=== PATIENT | male | born 1955 | race Caucasian/White ===

== ENCOUNTER 2016-06-20 20:12 | Inpatient (IN) | payer MEDICARE ==
[2016-06-20] MEDS ORDERED: NITROGLYCERIN OINT 1 INCH/GM PACKET TOPICAL STA (20:52)
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
[2016-06-20 21:09] LABS: Basophils % (A) 0 %; CHCM 36.2; Eosinophils # (A) 0.2 k/uL (0-0.7); Eosinophils % (A) 3 %; HCT 38.6 % (39.0-53.0); HDW 2.91; HGB 13.5 gm/dL (13.0-17.5); Luc # (Auto) 0.19; Luc % (Auto) 3; Lymphocytes # (A) 1.8 k/uL (1.0-4.8); Lymphocytes % (A) 23 %; MCH 33.1 pg (25.0-35.0); MCV 94.6 fL (80.0-100.0); Mean Platelet Volume 6.3; Monocytes # (A) 0.5 k/uL (0-1.0); Monocytes % (A) 7 %; Neutrophils # (A) 5.1 k/uL (1.3-7.7); Neutrophils % (A) 65 %; RBC 4.08 m/uL (4.30-5.90); RDW 12.8 % (11.5-15.5); WBC 7.8 k/uL (3.8-10.6); WBC (Perox) 8.08
[2016-06-20 21:10] LABS: Partial Thromboplastin Time 23.2 sec (22.0-30.0); Prothrombin Time 10.5 sec (9.0-12.0)
[2016-06-20] MEDS: ASPIRIN 81 MG CHEW PO STA ×2 (21:11→21:12)
[2016-06-20 21:22] LABS: ALT 37 U/L (21-72); AST 21 U/L (17-59); Alkaline Phosphatase 85 U/L (38-126); Anion Gap 12 mmol/L; Blood Urea Nitrogen 13 mg/dL (9-20); Calcium 9.8 mg/dL (8.4-10.2); Carbon Dioxide 24 mmol/L (22-30); Chloride 106 mmol/L (98-107); Glucose 112 mg/dL (74-99); Magnesium 1.9 mg/dL (1.6-2.3); Non-African American GFR(MDRD) >60 (>60 ml/min/1.73 sqM); Potassium 4.8 mmol/L (3.5-5.1); Sodium 142 mmol/L (137-145); Total Bilirubin 0.4 mg/dL (0.2-1.3); Total Protein 7.6 g/dL (6.3-8.2)
--- NOTE | 2016-06-20 21:25 | XR ---
EXAMINATION TYPE: XR chest 2V DATE OF EXAM: 06/20/2016 9:09 PM COMPARISON: 03/01/2015 HISTORY: Chest pain TECHNIQUE: Frontal and lateral views of the chest are obtained. FINDINGS: There is no heart failure nor confluent pneumonic infiltrate. Heart size is normal. There are sternal wires. There is spurring in the thoracic spine. There are chest leads. Costophrenic angle s are clear. IMPRESSION: No active cardiopulmonary disease. No change.
[2016-06-20 21:26] LABS: Creatine Kinase 135 U/L (55-170)
[2016-06-20 21:39] LABS: Troponin I <0.012 ng/mL (0.000-0.034)
[2016-06-20 21:46] LABS: Creatine Kinase MB 4.9 ng/mL (0.0-2.4)
[2016-06-20] MEDS ORDERED: NITROGLYCERIN SL TABS 0.4 MG TAB SUBLINGUAL PRN (22:21)
[2016-06-20] MEDS ORDERED: MORPHINE SULFATE 2 MG/ML SYRINGE IVP PRN (22:21)
[2016-06-20] MEDS ORDERED: HEPARIN SODIUM,PORCINE 5,000 UNIT/ML 1 ML VIAL IV PRN (22:21)
[2016-06-20] MEDS ORDERED: HEPARIN SODIUM,PORCINE 5,000 UNIT/ML 1 ML VIAL IV ONE (22:21)
[2016-06-20] MEDS: HEPARIN SODIUM,PORCINE/D5W PMX 25,000 UNIT in DEXTROSE/WATER 1 500ML.BAG IV SCH (22:49)
[2016-06-20] MEDS ORDERED: ALBUTEROL NEBULIZED 2.5 MG/3 ML INHALATION PRN (22:56)
[2016-06-20] MEDS ORDERED: ALPRAZolam 0.25 MG TAB PO PRN (22:56)
[2016-06-20 23:22] VITALS: BMI 27.8
[2016-06-21 04:56] LABS: Cholesterol 138 mg/dL (<200); HDL Cholesterol 39 mg/dL (40-60); Triglycerides 398 mg/dL (<150)
[2016-06-21 05:11] LABS: Creatine Kinase 113 U/L (55-170)
[2016-06-21 05:24] LABS: Troponin I <0.012 ng/mL (0.000-0.034)
[2016-06-21 05:28] LABS: Creatine Kinase MB 4.3 ng/mL (0.0-2.4)
[2016-06-21] MEDS ORDERED: NITROGLYCERIN OINT 1 INCH/GM PACKET TOPICAL SCH (06:00)
[2016-06-21 06:52] LABS: Glucose,Whole Blood 117 mg/dL (75-99)
[2016-06-21] MEDS ORDERED: ASPIRIN 325 MG TAB PO STA ×2 (07:42→11:28)
[2016-06-21] MEDS ORDERED: SODIUM CHLORIDE 0.9% 1,000 ML in EMPTY BAG 1 BAG IV ONE ×2 (07:42→11:28)
[2016-06-21] MEDS ORDERED: ALPRAZolam 0.25 MG TAB PO PRN ×2 (07:42→11:28)
[2016-06-21] MEDS ORDERED: ATORVASTATIN 80 MG TAB PO STA ×2 (07:42→11:28)
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
[2016-06-21] MEDS ORDERED: FISH OIL PO SCH (09:00)
[2016-06-21] MEDS ORDERED: NON-FORMULARY DRUG (Ubidecarenone [Co Q-10] 100 MG) PO SCH (09:00)
[2016-06-21] MEDS ORDERED: DHA PO SCH (09:00)
[2016-06-21] MEDS ORDERED: EPA PO SCH (09:00)
[2016-06-21] MEDS: GEMFIBROZIL 600 MG TAB PO SCH ×3 (09:07→17:23)
[2016-06-21] MEDS: METOPROLOL TARTRATE 25 MG TAB PO SCH ×2 (09:16→21:35)
[2016-06-21] MEDS: PANTOPRAZOLE 40 MG TABLET PO SCH (09:16)
[2016-06-21] MEDS: LISINOPRIL 10 MG TAB PO SCH (09:16)
[2016-06-21 09:36] LABS: Creatine Kinase 124 U/L (55-170)
[2016-06-21 09:50] LABS: Troponin I <0.012 ng/mL (0.000-0.034)
[2016-06-21 09:56] LABS: Creatine Kinase MB 4.2 ng/mL (0.0-2.4)
[2016-06-21 11:09] LABS: Hemoglobin A1C 6.5 % (4.2-6.1)
[2016-06-21] MEDS ORDERED: ALPRAZolam 0.5 MG TAB PO PRN (11:28)
[2016-06-21] MEDS ORDERED: NITROGLYCERIN SL TABS 0.4 MG TAB SUBLINGUAL PRN (11:28)
--- NOTE | 2016-06-21 11:52 | ECHOF ---
Referral Reason:cp MEASUREMENTS -------- HEIGHT: 182.9 cm WEIGHT: 95.3 kg BP: 137/81 IVSd: 1.1 cm (0.6 - 1.1) LVIDd: 4.2 cm (3.9 - 5.3) LVPWd: 1.5 cm (0.6 - 1.1) IVSs: 1.3 cm LVIDs: 3.1 cm LVPWs: 1.7 cm Ao Diam: 4.2 cm (2.0 - 3.7) AV Cusp: 1.9 cm (1.5 - 2.6) LA Diam: 3.2 cm (2.7 - 3.8) MV EXCURSION: 23.948 mm (> 18.000) MV EF SLOPE: 162 mm/s (70 - 150) EPSS: 0.4 cm MV E Parminder: 0.69 m/s MV DecT: 206 ms MV A Parminder: 0.63 m/s MV E/A Ratio: 1.09 RAP: 5.00 mmHg RVSP: 8.72 mmHg FINDINGS -------- Sinus rhythm. This was a technically difficult study with suboptimal views. There is mild concentric left ventricular hypertrophy. Overall left ventricular systolic function is low-normal with, an EF between 50 - 55 %. Difficult to assess LV function accurately inspite of definity. The RV was not well visualized. The left atrium was not well visualized. The right atrium was not well visualized. 1.5mg of Definity was utilized for enhancement of images The aortic valve was not well visualized. Mild mitral regurgitation is present. Mild tricuspid regurgitation present. The right ventricular systolic pressure, as measured by Doppler, is 8.72mmHg. Pulmonic valve appears structurally normal. The pericardium is normal. CONCLUSIONS -------- 1. Sinus rhythm. 2. The aortic valve was not well visualized. 3. Mild mitral regurgitation is present. 4. Mild tricuspid regurgitation present. 5. The right ventricular systolic pressure, as measured by Doppler, is 8.72mmHg. 6. Pulmonic valve appears structurally normal. 7. The pericardium is normal. 8. This was a technically difficult study with suboptimal views. 9. There is mild concentric left ventricular hypertrophy. 10. Overall left ventricular systolic function is low-normal with, an EF between 50 - 55 %. 11. Difficult to assess LV function accurately inspite of definity. 12. The RV was not well visualized. 13. The left atrium was not well visualized. 14. The right atrium was not well visualized. 15. 1.5mg of Definity was utilized for enhancement of images [employer] MECH[employer]IC: Lilia Tolliver RDCS
[2016-06-21 12:19] LABS: Glucose,Whole Blood 89 mg/dL (75-99)
[2016-06-21] MEDS: ISOSORBIDE MONONITRATE ER 60 MG TAB.ER.24H PO SCH ×2 (12:22→21:35)
[2016-06-21] MEDS: CLOPIDOGREL 75 MG TAB PO SCH (12:22)
[2016-06-21] MEDS: MULTIVITAMINS, THERA 1 EACH TAB PO SCH (12:25)
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
[2016-06-21 17:20] LABS: Glucose,Whole Blood 113 mg/dL (75-99)
[2016-06-21] MEDS: INSULIN LISPRO (humaLOG) 300 UNIT/3 ML VIAL SQ SCH ×2 (17:24→21:33)
[2016-06-21] MEDS: ACETAMINOPHEN TAB 325 MG TAB PO PRN (20:42)
[2016-06-21 20:46] LABS: Glucose,Whole Blood 123 mg/dL (75-99)
[2016-06-21] MEDS: HEPARIN SODIUM,PORCINE/D5W PMX 25,000 UNIT in DEXTROSE/WATER 1 500ML.BAG IV SCH (22:12)
[2016-06-22] MEDS: ACETAMINOPHEN TAB 325 MG TAB PO PRN ×2 (03:45→19:58)
[2016-06-22 06:18] LABS: Basophils % (A) 0 %; CH 33.5; Eosinophils # (A) 0.2 k/uL (0-0.7); Eosinophils % (A) 3 %; HCT 36.3 % (39.0-53.0); HDW 2.99; HGB 12.6 gm/dL (13.0-17.5); Luc # (Auto) 0.19; Luc % (Auto) 3; Lymphocytes # (A) 2.4 k/uL (1.0-4.8); Lymphocytes % (A) 36 %; MCH 32.5 pg (25.0-35.0); MCHC 34.8 g/dL (31.0-37.0); MCV 93.6 fL (80.0-100.0); Monocytes # (A) 0.5 k/uL (0-1.0); Monocytes % (A) 7 %; Neutrophils # (A) 3.3 k/uL (1.3-7.7); Neutrophils % (A) 50 %; RBC 3.88 m/uL (4.30-5.90); RDW 12.8 % (11.5-15.5); WBC 6.6 k/uL (3.8-10.6); WBC (Perox) 6.67
[2016-06-22 06:26] LABS: Glucose,Whole Blood 111 mg/dL (75-99)
[2016-06-22] MEDS: GEMFIBROZIL 600 MG TAB PO SCH ×2 (06:48→17:07)
[2016-06-22] MEDS: PANTOPRAZOLE 40 MG TABLET PO SCH (06:48)
[2016-06-22] MEDS: INSULIN LISPRO (humaLOG) 300 UNIT/3 ML VIAL SQ SCH ×4 (06:52→21:31)
[2016-06-22] MEDS: METOPROLOL TARTRATE 25 MG TAB PO SCH ×2 (07:33→23:42)
[2016-06-22] MEDS: ISOSORBIDE MONONITRATE ER 60 MG TAB.ER.24H PO SCH ×2 (07:33→21:34)
[2016-06-22] MEDS: LISINOPRIL 10 MG TAB PO SCH (07:33)
[2016-06-22] MEDS: ASPIRIN 325 MG TAB PO SCH (07:33)
[2016-06-22] MEDS: CLOPIDOGREL 75 MG TAB PO SCH (07:34)
[2016-06-22 07:52] LABS: ALT 37 U/L (21-72); AST 18 U/L (17-59); Alkaline Phosphatase 77 U/L (38-126); Anion Gap 13 mmol/L; Blood Urea Nitrogen 15 mg/dL (9-20); Carbon Dioxide 22 mmol/L (22-30); Chloride 108 mmol/L (98-107); Glucose 115 mg/dL (74-99); Non-African American GFR(MDRD) >60 (>60 ml/min/1.73 sqM); Potassium 4.7 mmol/L (3.5-5.1); Sodium 143 mmol/L (137-145); Total Bilirubin 0.4 mg/dL (0.2-1.3); Total Protein 6.9 g/dL (6.3-8.2)
[2016-06-22] MEDS ORDERED: LIDOCAINE 2% INJ 20 MG/ML (20 ML MDV) ONE ×2 (08:07→09:44)
[2016-06-22] MEDS ORDERED: IV FLUID CONTINUATION 250 ML IV ONE (08:25)
[2016-06-22] MEDS ORDERED: diphenhydrAMINE 50 MG/ML 1 ML VIAL ONE (08:36)
[2016-06-22] MEDS ORDERED: MIDAZOLAM 2 MG/2 ML VIAL ONE (08:36)
[2016-06-22] MEDS ORDERED: diphenhydrAMINE 50 MG/ML 1 ML VIAL IVP ONE (08:41)
[2016-06-22] MEDS: MIDAZOLAM 2 MG/2 ML VIAL IV ONE ×2 (08:44→09:47)
[2016-06-22] MEDS ORDERED: fentaNYL (PF) 50 MCG/ML 2 ML AMP ONE (08:47)
[2016-06-22] MEDS ORDERED: fentaNYL (PF) 50 MCG/ML 2 ML AMP IV ONE (08:48)
[2016-06-22] MEDS ORDERED: LIDOCAINE 2% INJ 20 MG/ML SQ ONE (08:50)
--- NOTE | 2016-06-22 09:36 | P.PCN ---
Date of Procedure: 06/22/16 Preoperative Diagnosis: Unstable angina Postoperative Diagnosis: Significant progression of the disease in the graft to the OM Procedure(s) Performed: Left heart catheterization with selective injection of the WELSH grafts and the 2 vein grafts. No LV gram was performed. The mechoopda vessels were not studied Description of Procedure: HISTORY: This is a 60-year-old gentleman with history of ischemic heart disease and previous bypass surgeries 2. Patient is admitted to the hospital this time with complaints of chest pain and was evaluated in the hospital. Patient EKGs cardiac enzymes were negative. However because of typical chest pains and previous history, patient was advised to have cardiac catheterization. CONSENT:We have discussed the risks, benefits and alternative therapies for the above-mentioned procedure and for both sedation/analgesia as well as necessary blood product administration, if indicated, as they pertain to this patient. The patient has indicated understanding and acceptance of the risks and procedures discussed. PROCEDURE: Patient was brought to the lab in a fasting state. Patient was given some IV sedation. The right groin is infiltrated with lidocaine and right femoral artery was entered using Seldinger technique. A 6-Bahamian catheter was left in place and selective coronary arteriography was performed including selective injection of the WELSH graft and the 2 vein grafts.. Patient tolerated the procedure well. Patient was found to have a critical lesion involving the graft to the OM branch with very sluggish flow. Dr. Madrigal' s evaluating the patient and will talk to the family before deciding proceed with stent placement of the graft. This could be high risk procudere with possibility of total occlusion. HEMODYNAMICS: The aortic pressure is 120/73. Left ankle end-diastolic pressure is about 15-20. There was no gradient across the aortic valve. SELECTIVE CORONARY ARTERIOGRAPHY: LEFT MAIN: Not selectively studied at this time THE LEFT ANTERIOR DESCENDING CORONARY ARTERY: Totally occluded from the previous studies THE LEFT CIRCUMFLEX AND IS CORONARY ARTERY: Totally occluded from the previous studies THE RIGHT CORONARY ARTERY: Totally occluded from the previous studies THE VEIN GRAFT TO THE OM BRANCH: This graft is also very short admission for with a long tight stenosis proximally. We'll cannot see the flow into the mechoopda vessel because of very sluggish flow. THE VEIN GRAFT TO THE RCA: This is a good caliber vessel and patent at the proximal and distal anastomosis. The distal RCA is good in caliber and patent. THE WELSH GRAFT TO THE LAD: This is a fairly caliber vessel and patent throat its length and also to distal anastomosis. The distal LAD is a small to moderate in caliber with mild diffuse plaque. LEFT VENTRICULOGRAPHY: Not performed FINAL IMPRESSION: Critical lesion involving the vein graft to the OM branch. Rest of the circulation appears to be stable PLAN: Possible stenting of the graft to the OM branch. Dr. Madrigal's evaluating the patient and will talk to the family before deciding PROGNOSIS: Guarded
[2016-06-22] MEDS ORDERED: BIVALIRUDIN BOLUS 250 MG/50 ML IV ONE (09:45)
[2016-06-22] MEDS ORDERED: BIVALIRUDIN 250 MG in SODIUM CHLORIDE 0.9% 50 ML IV ONE (09:46)
[2016-06-22] MEDS: niCARdipine Syringe (1,000 mcg/10 mL) INTRACORON ONE ×3 (09:50→10:06)
[2016-06-22] MEDS ORDERED: SODIUM CHLORIDE 0.9% 1,000 ML IV ONE (10:03)
[2016-06-22] MEDS ORDERED: NITROGLYCERIN 1000MCG/10ML SYRINGE INTRAARTER ONE (10:06)
[2016-06-22] MEDS ORDERED: CLOPIDOGREL 75 MG TAB ONE (10:08)
[2016-06-22] MEDS ORDERED: CLOPIDOGREL 75 MG TAB PO ONE (10:10)
[2016-06-22] MEDS ORDERED: NITROGLYCERIN SL TABS 0.4 MG TAB SUBLINGUAL PRN (10:12)
[2016-06-22] MEDS ORDERED: RX INFO: IV CONTRAST WAS GIVEN 1 EACH MISC MISCELLANE PRN (10:12)
[2016-06-22] MEDS ORDERED: MAG HYDROX/AL HYDROX/SIMETH 30 ML CUP PO PRN (10:12)
[2016-06-22] MEDS ORDERED: ZOLPIDEM 5 MG TAB PO PRN (10:12)
[2016-06-22] MEDS ORDERED: SODIUM CHLORIDE 0.9% 1,000 ML IV SCH (10:15)
[2016-06-22] MEDS ORDERED: IOHEXOL 350 MG/ML 100 ML BOTTLE INJ ONE (10:21)
[2016-06-22] MEDS ORDERED: MAG HYDROX/AL HYDROX/SIMETH 30 ML CUP ONE (10:27)
[2016-06-22] MEDS ORDERED: MAG HYDROX/AL HYDROX/SIMETH 30 ML CUP PO ONE (10:28)
[2016-06-22 11:11] LABS: Glucose,Whole Blood 85 mg/dL (75-99)
[2016-06-22] MEDS: MULTIVITAMINS, THERA 1 EACH TAB PO SCH (11:38)
[2016-06-22] MEDS ORDERED: ATROPINE SULFATE 0.1 MG/ML 10ML SYRINGE ONE (13:01)
[2016-06-22] MEDS: HYDROmorphone 1 MG/ML 1 ML SYRINGE IVP PRN ×2 (14:11→17:08)
--- NOTE | 2016-06-22 15:50 | PN ---
DATE OF SERVICE: 06/12/2016 PRESENTING COMPLAINT: Chest pain. INTERVAL HISTORY: This is a patient with known coronary artery disease, presents with unstable angina. Patient underwent a cardiac cath today and the graft to the OM was blocked. Patient did get angioplasty and stenting to the same. Currently no chest pain, lying in bed. Review of systems done for constitutional, cardiovascular, GI, pulmonary; relevant findings as above. Current medications are reviewed. On examination, temperature 97, pulse 74, respirations 16, blood pressure 111/62, pulse ox 95% on room air. GENERAL APPEARANCE: Lying in bed, comfortable. EYES: Pupils equal. Conjunctivae are normal. NECK: JVD not raised. Mass not palpable. Respiratory effort normal. Lungs are clear. CARDIOVASCULAR: First and second sounds normal. No edema. ABDOMEN: Soft, nontender. Liver and spleen not palpable. PSYCHIATRY: Alert and oriented x3. Mood and affect is normal. INVESTIGATIONS: White count 6.6, potassium 4.7. ASSESSMENT: 1. Unstable angina in a patient with known coronary artery disease. 2. Successful angioplasty stenting of the graft to the OM. 3. Coronary artery disease with prior history of coronary artery bypass. 4. Chronic obstructive pulmonary disease in an ex-smoker. 5. Diabetes mellitus type 2 on oral hypoglycemic. 6. Gastroesophageal reflux disease. 7. Essential hypertension. PLAN: Patient is doing well. Stable. Continue current medication and treatment plan. Follow with cardiology. Care was discussed with the patient and the .
[2016-06-22 17:00] LABS: Glucose,Whole Blood 162 mg/dL (75-99)
[2016-06-22 20:28] LABS: Glucose,Whole Blood 111 mg/dL (75-99)
--- NOTE | 2016-06-22 21:56 | PCN ---
DATE OF PROCEDURE: June 22, 2016 PERFORMING PHYSICIAN: Wiley High, toll gate tender. PROCEDURE PERFORMED: Successful stenting of the SVG to obtuse marginal branch using 2.25 x 18 and 2.25 x 15 mm Xience ROBERT with a good angiographic results. INDICATION: This is a pleasant 60-year-old gentleman who sees Dr. Dickerson as an outpatient, who presented to the hospital with chest discomfort and unstable angina. He underwent a heart catheterization by Dr. Dickerson and was found to have critical disease involving the ostial of the SVG to OM. Approach: Right common femoral artery. COMPLICATIONS: None. Level of sedation: Moderate. PROCEDURE DESCRIPTION: After diagnostic heart catheterization was performed by Dr. Dickerson and after reviewing the angiogram, decision was made toward percutaneous coronary intervention. The case was discussed with the patient and the family in detail to. Anticoagulation was initiated using Angiomax. Subsequently, I took an Amplatzer one guiding catheter, and the SVG to OM was engaged. A whisper wire was used to wire that graft. Subsequently, I did balloon angioplasty using 2.0 x 12 mm balloon. Then I deployed in the mid body of the graft 2.25 x 18 mm Xience ROBERT and in the ostial proximal part of the graft 2.25 x 15 mm Xience ROBERT as well. Both stents were deployed under 12 atmospheres for 20 seconds. The following angiogram showed good angiographic result without perforation and without dissection. POSTPROCEDURE MANAGEMENT: 1. Dual antiplatelet therapy. 2. Risk factor modification. 3. Follow-up with the patient.
[2016-06-23 05:23] VITALS: TEMP 98
[2016-06-23 06:24] LABS: Glucose,Whole Blood 146 mg/dL (75-99)
[2016-06-23] MEDS: GEMFIBROZIL 600 MG TAB PO SCH (06:37)
[2016-06-23] MEDS: PANTOPRAZOLE 40 MG TABLET PO SCH (06:37)
[2016-06-23] MEDS: INSULIN LISPRO (humaLOG) 300 UNIT/3 ML VIAL SQ SCH (06:38)
[2016-06-23 06:47] LABS: Non-African American GFR(MDRD) >60 (>60 ml/min/1.73 sqM)
[2016-06-23] MEDS: ISOSORBIDE MONONITRATE ER 60 MG TAB.ER.24H PO SCH (08:03)
[2016-06-23] MEDS: METOPROLOL TARTRATE 25 MG TAB PO SCH (08:03)
[2016-06-23] MEDS: CLOPIDOGREL 75 MG TAB PO SCH (08:03)
[2016-06-23] MEDS: LISINOPRIL 10 MG TAB PO SCH (08:03)
[2016-06-23 09:30] VITALS: BP 137/68; PULSE 75; RESP 18
--- NOTE | 2016-06-23 09:39 | P.PN ---
Subjective Principal diagnosis: Stent placement of the SVG to the obtuse marginal This is a pleasant 60-year-old gentleman who follows regularly with Dr. Dickerson in the office. He has a known history of coronary artery disease with prior CABG and redo CABG, hypertension, hyperlipidemia, he presented to the hospital with symptoms of chest discomfort. Patient was taken to the cardiac catheterization lab by Dr. Dickerson and subsequently underwent angioplasty with stenting of the SVG to the OM by Dr. Madrigal. He was seen and examined this morning, denies any chest pain or difficulty in breathing. He has been up ambulating without any difficulty. EKG performed this morning shows normal sinus rhythm with no changes from post-PCI. Objective - Vital Signs Vital signs: Vital Signs Temp 98.0 F 06/23/16 04:00 Pulse 75 06/23/16 08:00 Resp 18 06/23/16 08:00 BP 137/68 06/23/16 08:00 Pulse Ox 98 06/23/16 08:00 Intake & Output 06/22/16 06/23/16 06/23/16 18:59 06:59 18:59 Intake Total 1286.37 180 Output Total 2000 450 Balance -713.63 -450 180 Weight 97.1 kg Intake: IV 286.37 Intake, IV Titration 400 Amount Sodium Chloride 0.9% 1, 400 000 ml @ 100 mls/hr IV . Q10H CECY Rx#:[id number] Oral 600 180 Output: Urine 2000 450 Uretheral (Lau) 1000 450 Other: # Voids 0 3 # Bowel Movements 0 - Exam PHYSICAL EXAMINATION: HEENT: Head is atraumatic, normocephalic. Pupils equal, round. Neck is supple. There is no elevated jugular venous pressure. HEART EXAMINATION: Heart S1, S2 normal. No murmur or gallop heard. CHEST EXAMINATION: Lungs are clear to auscultation and precussion. No chest wall tenderness is noted on palpation or with deep breathing. ABDOMEN: Soft, nontender. Bowel sounds are heard. No organomegaly noted. Right groin soft, no evidence of any hematoma, good distal pulse. EXTREMITIES: 2+ peripheral pulses with no evidence of peripheral edema and no calf tenderness noted. NEUROLOGIC patient is awake, alert and oriented -3. . - Labs CBC & Chem 7: 06/22/16 05:41 06/23/16 05:48 Labs: Abnormal Lab Results - Last 24 Hours (Table) 06/22/16 06/22/16 06/23/16 Range/Units 16:58 20:23 06:22 POC Glucose (mg/dL) 162 H 111 H 146 H (75-99) mg/dL Assessment and Plan (1) Hx of CABG Status: Acute (2) HTN (hypertension) Status: Acute (3) Hyperlipemia Status: Acute (4) Unstable angina pectoris Status: Acute Plan: Patient presented hospital with symptoms of chest discomfort, underwent angioplasty with stenting of the saphenous vein graft to the OM branch. From cardiology's perspective, he may be able to be discharged home today. A follow- up appointment will be made with Dr. Dickerson in the office in one week. Patient will be discharged home on aspirin 81 mg daily, Plavix 75 mg daily, Lopid 600 mg twice a day, Imdur 60 mg by mouth twice a day, lisinopril 10 mg daily, metoprolol tartrate 25 mg one tablet by mouth twice a day, and sublingual nitroglycerin as needed for chest pain. DNP note has been reviewed, I agree with a documented findings and plan of care. Patient was seen and examined.
[2016-06-23] MEDS: ASPIRIN 325 MG TAB PO SCH (10:13)
[2016-06-23 11:58] LABS: Glucose,Whole Blood 84 mg/dL (75-99)
--- NOTE | 2016-06-23 14:02 | PTCA ---
DATE OF PROCEDURE: June 22, 2016 PERFORMING PHYSICIAN: Wiley High, envelope sealer operator. PROCEDURE PERFORMED: Successful stenting of the SVG to obtuse marginal branch using 2.25 x 18 and 2.25 x 15 mm Xience ROBERT with a good angiographic results. INDICATION: This is a pleasant 60-year-old gentleman who sees Dr. Dickerson as an outpatient, who presented to the hospital with chest discomfort and unstable angina. He underwent a heart catheterization by Dr. Dickerson and was found to have critical disease involving the ostial of the SVG to OM. Approach: Right common femoral artery. COMPLICATIONS: None. Level of sedation: Moderate. PROCEDURE DESCRIPTION: After diagnostic heart catheterization was performed by Dr. Dickerson and after reviewing the angiogram, decision was made toward percutaneous coronary intervention. The case was discussed with the patient and the family in detail to. Anticoagulation was initiated using Angiomax. Subsequently, I took an Amplatzer one guiding catheter, and the SVG to OM was engaged. A whisper wire was used to wire that graft. Subsequently, I did balloon angioplasty using 2.0 x 12 mm balloon. Then I deployed in the mid body of the graft 2.25 x 18 mm Xience ROBERT and in the ostial proximal part of the graft 2.25 x 15 mm Xience ROBERT as well. Both stents were deployed under 12 atmospheres for 20 seconds. The following angiogram showed good angiographic result without perforation and without dissection. POSTPROCEDURE MANAGEMENT: 1. Dual antiplatelet therapy. 2. Risk factor modification. 3. Follow-up with the patient.
--- NOTE | 2016-06-23 14:38 | PTCA ---
DATE OF PROCEDURE: June 22, 2016 PERFORMING PHYSICIAN: Wiley High, geothermal system installer. PROCEDURE PERFORMED: Successful stenting of the SVG to obtuse marginal branch using 2.25 x 18 and 2.25 x 15 mm Xience ROBERT with a good angiographic results. INDICATION: This is a pleasant 60-year-old gentleman who sees Dr. Dickerson as an outpatient, who presented to the hospital with chest discomfort and unstable angina. He underwent a heart catheterization by Dr. Dickerson and was found to have critical disease involving the ostial of the SVG to OM. Approach: Right common femoral artery. COMPLICATIONS: None. Level of sedation: Moderate. PROCEDURE DESCRIPTION: After diagnostic heart catheterization was performed by Dr. Dickerson and after reviewing the angiogram, decision was made toward percutaneous coronary intervention. The case was discussed with the patient and the family in detail to. Anticoagulation was initiated using Angiomax. Subsequently, I took an Amplatzer one guiding catheter, and the SVG to OM was engaged. A whisper wire was used to wire that graft. Subsequently, I did balloon angioplasty using 2.0 x 12 mm balloon. Then I deployed in the mid body of the graft 2.25 x 18 mm Xience ROBERT and in the ostial proximal part of the graft 2.25 x 15 mm Xience ROBERT as well. Both stents were deployed under 12 atmospheres for 20 seconds. The following angiogram showed good angiographic result without perforation and without dissection. POSTPROCEDURE MANAGEMENT: 1. Dual antiplatelet therapy. 2. Risk factor modification. 3. Follow-up with the patient.
--- NOTE | 2016-06-24 09:02 | DS ---
DATE OF ADMISSION: 06/21/2016 DATE OF DISCHARGE: 06/23/2016 FINAL DIAGNOSIS(ES): 1. Unstable angina ( ) coronary artery disease. 2. Coronary artery disease with prior history of coronary artery bypass. 3. Chronic obstructive pulmonary disease in an ex-smoker. 4. Diabetes mellitus, Type 2 on oral hypoglycemics. 5. Gastroesophageal reflux disease. 6. Essential hypertension. PROCEDURE: Cardiac catheterization with stent to the graft of the OM. CONSULTATION: Dr. High from cardiology. HOSPITAL COURSE: This patient presented with unstable angina. Cardiac cath with intervention to the above was carried out. A 2-D echo showed a preserved EF of 50% to 55%. Day of discharge, the patient up and about no further chest pain. Care was discussed with the patient and at the bedside. On exam, lungs are clear. CARDIOVASCULAR: First and second sounds normal. DISCHARGE MEDICATIONS: 1. Fish oil 600 mg p.o. b.i.d. 2. Prilosec 20 mg with breakfast. 3. Nitrostat 0.4 sublingual q.5 p.r.n. 4. Xanax 0.25 p.o. b.i.d. p.r.n. 5. Pro-air 1 to 2 puffs q.6 p.r.n. 6. Aspirin 81 mg q.h.s. 7. Lopid 600 mg p.o. b.i.d. 8. Imdur ER 60 mg b.i.d. 9. Zestril 10 mg p.o. daily. 10. Lopressor 25 mg p.o. b.i.d. 11. Men's multivitamin 1 tablet p.o. daily. 12. CoQ10 100 mg daily. 13. Glucotrol XL 5 mg p.o. daily. 14. Plavix 75 mg daily. 15. Flonase 2 sprays each nostril daily p.r.n. 16. Multivitamin 1 tablet p.o. daily at noon. 17. Nitrostat 0.4 sublingual q.5 p.r.n. Follow up with Dr. Quinn in one week. Follow-up with Dr. Dickerson on 07/01/2016.
== END 2016-06-23 13:09 | disposition home or self-care (01) | DRG 247 ==
LOC: EC 20:12 → 3OBS 22:21 → OBSVTOIN 06-21 11:27 → 6SEL 06-21 12:42
PROVIDERS: ADMIT Hospitalist; ATTEND Hospitalist
PROC: B2121ZZ Fluoroscopy of Single Coronary Artery Bypass Graft using Low Osmolar Contrast (ICD-10-PCS; 2016-06-22)
PROC: B2111ZZ Fluoroscopy of Multiple Coronary Arteries using Low Osmolar Contrast (ICD-10-PCS; 2016-06-22)
PROC: 027035Z Dilation of Coronary Artery, One Artery with Two Drug-eluting Intraluminal Devices, Percutaneous Approach (ICD-10-PCS; principal; 2016-06-22 08:25)
PROC: 4A023N7 Measurement of Cardiac Sampling and Pressure, Left Heart, Percutaneous Approach (ICD-10-PCS; 2016-06-22 08:25)
DX: I25.110 Atherosclerotic heart disease of native coronary artery with unstable angina pectoris (principal); I10 Essential (primary) hypertension; E11.9 Type 2 diabetes mellitus without complications; E78.5 Hyperlipidemia, unspecified; I25.2 Old myocardial infarction; I45.10 Unspecified right bundle-branch block; J44.9 Chronic obstructive pulmonary disease, unspecified; K21.9 Gastro-esophageal reflux disease without esophagitis; F41.9 Anxiety disorder, unspecified; H26.9 Unspecified cataract; Z79.02 Long term (current) use of antithrombotics/antiplatelets; Z79.82 Long term (current) use of aspirin; Z79.899 Other long term (current) drug therapy; Z79.84 Long term (current) use of oral hypoglycemic drugs; Z87.891 Personal history of nicotine dependence; Z95.1 Presence of aortocoronary bypass graft; Z82.49 Family history of ischemic heart disease and other diseases of the circulatory system
CPT/HCPCS: 36415; 71020; 80053; 80061; 82550; 82553; 82565; 83036; 83735; 83880; 84484; 85025; 85610; 85730; 93005; 93306; 93459; 96365; 96366; 96376; 99285

== ENCOUNTER 2016-11-20 05:06 | Observation (INO) | payer MEDICARE ==
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
[2016-11-20] MEDS ORDERED: MORPHINE SULFATE 4 MG/ML SYRINGE IV STA (05:28)
[2016-11-20] MEDS ORDERED: ASPIRIN 81 MG CHEW PO STA (05:28)
[2016-11-20] MEDS: NITROGLYCERIN SL TABS 0.4 MG TAB SUBLINGUAL STA ×3 (05:35→05:54)
--- NOTE | 2016-11-20 05:59 | XR ---
EXAM: XR Chest, 1 View CLINICAL HISTORY: chest pain TECHNIQUE: Frontal view of the chest. COMPARISON: Chest x-ray dated 06/20/2016 FINDINGS: Lungs: Unremarkable. No consolidation. Pleural space: Unremarkable. No pneumothorax. Heart: Unremarkable. No cardiomegaly. Mediastinum: Unremarkable. Bones/joints: Evidence of prior median sternotomy. Degenerative changes of the osseous structures. IMPRESSION: No acute findings.
[2016-11-20 06:26] LABS: Partial Thromboplastin Time 23.4 sec (22.0-30.0); Prothrombin Time 10.6 sec (9.0-12.0)
[2016-11-20 06:27] LABS: ALT 64 U/L (21-72); AST 41 U/L (17-59); Alkaline Phosphatase 59 U/L (38-126); Anion Gap 15 mmol/L; Blood Urea Nitrogen 19 mg/dL (9-20); Calcium 10.1 mg/dL (8.4-10.2); Carbon Dioxide 22 mmol/L (22-30); Chloride 104 mmol/L (98-107); Glucose 123 mg/dL (74-99); Non-African American GFR(MDRD) >60 (>60 ml/min/1.73 sqM); Potassium 4.4 mmol/L (3.5-5.1); Sodium 141 mmol/L (137-145); Total Bilirubin 0.3 mg/dL (0.2-1.3); Total Protein 7.6 g/dL (6.3-8.2)
[2016-11-20 06:29] LABS: Basophils % (A) 0 %; CH 34.1; CHCM 36.4; Eosinophils # (A) 0.2 k/uL (0-0.7); Eosinophils % (A) 2 %; HCT 39.3 % (39.0-53.0); HDW 2.79; HGB 13.9 gm/dL (13.0-17.5); Luc # (Auto) 0.23; Luc % (Auto) 3; Lymphocytes % (A) 42 %; MCH 33.3 pg (25.0-35.0); MCHC 35.3 g/dL (31.0-37.0); MCV 94.3 fL (80.0-100.0); Mean Platelet Volume 6.7; Monocytes # (A) 0.4 k/uL (0-1.0); Monocytes % (A) 6 %; Neutrophils # (A) 3.3 k/uL (1.3-7.7); Neutrophils % (A) 46 %; RBC 4.17 m/uL (4.30-5.90); RDW 13.7 % (11.5-15.5); WBC 7.1 k/uL (3.8-10.6); WBC (Perox) 6.88
[2016-11-20 06:30] LABS: Creatine Kinase 322 U/L (55-170)
[2016-11-20 06:42] LABS: Troponin I <0.012 ng/mL (0.000-0.034)
[2016-11-20 06:55] LABS: Creatine Kinase MB 7.5 ng/mL (0.0-2.4)
[2016-11-20] MEDS ORDERED: NITROGLYCERIN SL TABS 0.4 MG TAB SUBLINGUAL PRN (07:12)
[2016-11-20] MEDS ORDERED: ALBUTEROL NEBULIZED 2.5 MG/3 ML INHALATION PRN (07:14)
[2016-11-20] MEDS ORDERED: NON-FORMULARY DRUG (Ubidecarenone [Co Q-10] 100 MG) PO SCH (09:00)
--- NOTE | 2016-11-20 10:33 | CONS ---
DATE OF CONSULTATION: Mr. Flynn is a 61-year-old male with known history of coronary artery disease, status post redo coronary artery bypass grafting, who has been followed by Dr. Dickerson on a regular basis who presented with symptoms of chest discomfort. He started yesterday afternoon complaining of chest discomfort predominantly on the left side of chest. The discomfort was not associated with any other symptoms and some of the discomfort was worse in certain position of his upper extremities. It persisted for over 10 hours, came into the emergency room and evaluated and subsequently admitted. At the time of my evaluation, he is pain free. Patient was admitted to the hospital in June 2016 with symptoms of exertional chest discomfort and underwent cardiac catheterization. At that time he was found to have chronically occluded [place] arteries with patent WELSH to the LAD, patent saphenous vein graft to the right coronary artery with significant stenosis in the saphenous vein graft to the obtuse marginal branch. He subsequently underwent percutaneous revascularization of that vessel done by Dr. High using the 2.25 x 18 and 2.25 x 15 mm Xience stent. He feels that the discomfort he had yesterday is different from his anginal pain. He is reasonably active physically. His breathing is stable. He denies any dizziness, palpitation. He denies any syncope. He has no PND, orthopnea. No peripheral edema. His coronary risk factors are positive for history of hypertension and hyperlipidemia. He is diabetic. His medications at home include Glucotrol, Prilosec, Lopressor 25 mg twice a day, Zestril 10 mg daily, isosorbide mononitrate 60 mg daily, Lopid 600 mg twice a day, Plavix 75 mg daily, aspirin once a day and albuterol. REVIEW OF SYSTEMS: RESPIRATORY SYSTEM: He has no history of documented asthma, emphysema, bronchitis. GI SYSTEM: No recent GI bleeding. No peptic ulcer disease. SYSTEM: No dysuria or hematuria. NERVOUS SYSTEM: No stroke or seizure. PHYSICAL EXAMINATION: He is a 61-year-old male, alert, oriented, in no apparent distress. Blood pressure 140/70 with heart rate in the 60s. HEAD: Normocephalic. EYES: Sclerae anicteric. NECK: Good upstroke. No bruit. No jugular venous distention. LUNGS: Clear to auscultation. HEART: Regular rate and rhythm. S1, S2, no S3, with systolic murmur, ejection type, heard at the base. No diastolic murmur. No rub. ABDOMEN: Soft, nontender, positive bowel sounds. No organomegaly. EXTREMITIES: No edema. Intact distal pulses. He had amputation of 2 digits in the left hand. EKG revealed sinus mechanism, rate of 71, right bundle branch block and left axis deviation. Chest x-ray shows no acute changes. Lab data revealed troponin less than 0.012. BUN and creatinine 19 and 0.9. Potassium 4.4. Hemoglobin of 13.9. IMPRESSION: 1. Chest discomfort of unclear etiology, probable musculoskeletal in etiology had different pattern than his routine anginal pain. 2. History of coronary artery disease, status post redo coronary artery bypass grafting and status post stenting of the saphenous vein graft to the obtuse marginal branch. 3. Hypertension. 4. Hyperlipidemia. 5. Diabetes mellitus. RECOMMENDATION: I will obtain a second sample of troponin and if it is negative, then will proceed with a myocardial perfusion imaging to assess his status and guide his treatment. Depending on results of testing, further recommendations will be made. Thank you for this consult. We will follow with you.
[2016-11-20 11:11] LABS: Troponin I 0.017 ng/mL (0.000-0.034)
[2016-11-20 11:17] LABS: Creatine Kinase MB 6.6 ng/mL (0.0-2.4)
[2016-11-20] MEDS ORDERED: HEPARIN SODIUM,PORCINE 5,000 UNIT/ML 1 ML VIAL IV PRN (11:24)
[2016-11-20] MEDS ORDERED: HEPARIN SODIUM,PORCINE/D5W PMX 25,000 UNIT in DEXTROSE/WATER 1 500ML.BAG IV SCH ×2 (11:30→12:00)
[2016-11-20] MEDS ORDERED: HEPARIN SODIUM,PORCINE 5,000 UNIT/ML 1 ML VIAL IV ONE (12:00)
[2016-11-20 12:20] LABS: Glucose,Whole Blood 120 mg/dL (75-99)
[2016-11-20] MEDS: SODIUM CHLORIDE 0.9% 1,000 ML IV SCH (12:27)
[2016-11-20] MEDS: CLOPIDOGREL 75 MG TAB PO SCH (12:29)
[2016-11-20] MEDS: PANTOPRAZOLE 40 MG TABLET PO SCH (12:29)
[2016-11-20] MEDS: ISOSORBIDE MONONITRATE ER 60 MG TAB.ER.24H PO SCH ×2 (12:29→19:46)
[2016-11-20] MEDS: METOPROLOL TARTRATE 25 MG TAB PO SCH ×2 (12:29→19:46)
[2016-11-20] MEDS: LISINOPRIL 10 MG TAB PO SCH (12:30)
[2016-11-20] MEDS: GEMFIBROZIL 600 MG TAB PO SCH ×2 (12:30→17:38)
[2016-11-20] MEDS: MULTIVITAMINS, THERA 1 EACH TAB PO SCH (12:34)
[2016-11-20 13:31] LABS: Hemoglobin A1C 6.8 % (4.2-6.1)
[2016-11-20 17:04] LABS: Glucose,Whole Blood 112 mg/dL (75-99)
[2016-11-20 18:20] LABS: Creatine Kinase 291 U/L (55-170)
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
[2016-11-20 18:34] LABS: Troponin I <0.012 ng/mL (0.000-0.034)
[2016-11-20 18:37] LABS: Creatine Kinase MB 6.1 ng/mL (0.0-2.4)
[2016-11-20 19:50] LABS: Glucose,Whole Blood 158 mg/dL (75-99)
[2016-11-20] MEDS ORDERED: CYCLOBENZAPRINE 5 MG TAB PO PRN (21:08)
[2016-11-21 06:32] LABS: Glucose,Whole Blood 154 mg/dL (75-99)
[2016-11-21] MEDS ORDERED: AMINOPHYLLINE 500 MG/20 ML VIAL IV PRN (06:52)
[2016-11-21] MEDS ORDERED: REGADENOSON 0.4 MG/5 ML SYRINGE IV ONE (06:52)
[2016-11-21 07:06] LABS: Basophils % (A) 1 %; CH 34.1; CHCM 35.8; Eosinophils # (A) 0.1 k/uL (0-0.7); Eosinophils % (A) 2 %; HCT 37.4 % (39.0-53.0); HDW 2.75; HGB 12.7 gm/dL (13.0-17.5); Luc # (Auto) 0.15; Luc % (Auto) 2; Lymphocytes # (A) 2.7 k/uL (1.0-4.8); Lymphocytes % (A) 45 %; MCH 32.5 pg (25.0-35.0); MCV 95.7 fL (80.0-100.0); Mean Platelet Volume 6.8; Monocytes # (A) 0.4 k/uL (0-1.0); Monocytes % (A) 7 %; Neutrophils # (A) 2.6 k/uL (1.3-7.7); Neutrophils % (A) 44 %; RBC 3.91 m/uL (4.30-5.90); RDW 13.6 % (11.5-15.5); WBC (Perox) 6.08
[2016-11-21 07:50] LABS: Cholesterol 165 mg/dL (<200); HDL Cholesterol 41 mg/dL (40-60); Triglycerides 277 mg/dL (<150)
--- NOTE | 2016-11-21 09:17 | PN ---
Mr. Flynn is a 61-year-old male with a known history of coronary artery disease and is status post coronary artery bypass grafting and percutaneous revascularization, history of diabetes, hypertension, who presented with symptoms of chest discomfort that has some atypical feature for ischemic heart disease. He is feeling quite well this morning. He is denying any chest pain. His breathing has been stable. He denies any dizziness or palpitation. His medications at this time include IV heparin, aspirin, Plavix 75 mg daily, Lopid 600 mg twice a day, glipizide 2.5 mg twice a day, isosorbide mononitrate 60 mg twice a day, Zestril 10 mg daily, metoprolol 25 mg twice a day and Protonix. PHYSICAL EXAMINATION: Blood pressure 109/70 with a heart rate in the 80s. LUNGS: Clear. HEART: Regular rate and rhythm. S1, S2, no S3, no rub. ABDOMEN: Soft, nontender. EXTREMITIES: No edema. Lab data revealed troponin less than 0.012, 0.017 and less than 0.012. IMPRESSION: 1. Chest discomfort, has atypical feature for ischemic heart disease in a patient with known history of coronary artery disease. 2. Hypertension. 3. Hyperlipidemia. RECOMMENDATIONS: I will stop the IV heparin and proceed with a myocardial perfusion imaging. If there is no evidence of inducible ischemia, then no further cardiac work-up will be needed.
[2016-11-21] MEDS: METOPROLOL TARTRATE 25 MG TAB PO SCH ×2 (10:36→19:50)
[2016-11-21] MEDS: GEMFIBROZIL 600 MG TAB PO SCH ×2 (10:36→17:42)
[2016-11-21] MEDS: LISINOPRIL 10 MG TAB PO SCH (10:37)
[2016-11-21] MEDS: ISOSORBIDE MONONITRATE ER 60 MG TAB.ER.24H PO SCH ×2 (10:37→19:50)
[2016-11-21] MEDS: ASPIRIN 325 MG TAB PO SCH ×2 (10:37→10:42)
[2016-11-21] MEDS: MULTIVITAMINS, THERA 1 EACH TAB PO SCH (10:37)
[2016-11-21] MEDS: PANTOPRAZOLE 40 MG TABLET PO SCH (10:37)
[2016-11-21] MEDS: CLOPIDOGREL 75 MG TAB PO SCH (10:37)
[2016-11-21] MEDS: SODIUM CHLORIDE 0.9% 1,000 ML IV SCH (10:43)
--- NOTE | 2016-11-21 10:56 | NM ---
EXAMINATION TYPE: NM stress lexiscan cardiolite DATE OF EXAM: 11/21/2016 COMPARISON: 03/02/2015 prior myocardial SPECT HISTORY: chest pain TECHNIQUE: After the intravenous administration of 10.61 mCi Tc 99m Sestamibi - Cardiolite resting S PECT images acquired 45 minutes post injection. The patient received 0.4mg Lexiscan, 27.0 mCi Tc 99m Sestamibi - Stress images obtained [address] injection FINDINGS: Review of stress and rest SPECT images demonstrates a similar appearance to last exam. Gated analysi s shows normal wall motion with an estimated left ventricular ejection fraction of 52 %. IMPRESSION: Findings compatible with pharmacologically induced left ventricular myocardial ischemia involving ant erolateral and inferolateral left ventricle towards the base of the heart.
[2016-11-21 11:46] LABS: Glucose,Whole Blood 152 mg/dL (75-99)
--- NOTE | 2016-11-21 12:07 | EST ---
DATE OF SERVICE: 11/21/2016 AGE: 61Y SEX: M HT: 6'1" WT: 229 lbs. Lexiscan Cardiolite Stress Test *Heart Rate Blood Pressure *Rest: 69 Rest: 127/80 * *Max. Achieved: 93 Maximum BP: 127/83 85% PMHR: 134 100% PMHR: 158 *METS: - INDICATIONS: Chest pain. MEDICATIONS: - Patient was given Lexiscan injection over a period of 15 seconds. Peak heart rate of 93 was achieved. Maximum blood pressure of 127/83 mmHg was noted. Resting EKG shows normal sinus rhythm with a QRS morphology suggestive of right bundle branch block pattern is noted. ST segment depression suggestive of ischemia is noted. The nuclear study will follow.
[2016-11-21] MEDS ORDERED: ALPRAZolam 0.25 MG TAB PO PRN (13:14)
[2016-11-21] MEDS ORDERED: ALPRAZolam 0.5 MG TAB PO PRN (13:14)
[2016-11-21] MEDS ORDERED: SODIUM CHLORIDE 0.9% 1,000 ML in EMPTY BAG 1 BAG IV ONE (13:14)
[2016-11-21] MEDS ORDERED: ASPIRIN 325 MG TAB PO STA (13:18)
[2016-11-21] MEDS ORDERED: ATORVASTATIN 80 MG TAB PO STA (13:18)
[2016-11-21 16:50] LABS: Glucose,Whole Blood 131 mg/dL (75-99)
[2016-11-21 20:17] LABS: Glucose,Whole Blood 168 mg/dL (75-99)
--- NOTE | 2016-11-21 21:03 | P.PN ---
Progress Note - Text DATE OF SERVICE: 11/21/2016 PRESENTING COMPLAINT: Chest pressure INTERVAL HISTORY: This 61-year-old gentleman with unstable angina, stress test today was positive. Will go for cardiac catheterization tomorrow. Patient lying in the bed, appears comfortable. at the bedside. Tolerating his diet ambulating in the hallway. Plan of care discussed with patient and . REVIEW OF SYSTEMS: Done for constitutional ,cardiovascular, GI, pulmonary with relevant findings as above. CURRENT MEDICATIONS Xanax, aspirin, Plavix, Lopid, Imdur, Zestril, Lopressor. PHYSICAL EXAM: VITAL SIGNS: Temperature 98.1, pulse 61 respiratory rate 16, blood pressure 123/68, oxygen saturation 100% on room air. GENERAL APPEARANCE: . Lying in bed, appears relaxed. EYES: Pupils equal. Conjunctiva normal. NECK: JVD not raised. Mass not palpable. RESPIRATORY: Respiratory effort normal. Lungs decreased to auscultation. CARDIOVASCULAR: First and second sounds normal. No edema. ABDOMEN: Soft. Liver and spleen not palpable. No tenderness. No mass palpable. PSYCHIATRY: Alert and oriented x3. Mood and affect normal. INVESTIGATIONS: Hemoglobin 12.7, Accu-Cheks noted ASSESSMENT: Unstable angina in a patient with known coronary artery disease had a stent to the graft in the OM in June of this year. Coronary artery disease, prior history of coronary artery disease. Obesity body mass index greater than 30 Chronic obstructive pulmonary disease in ex-smoker. Diabetes mellitus type 2, on oral hypoglycemics. Gastroesophageal reflux disease. Essential hypertension. IV heparin monitoring. PLAN: Patient had a positive stress today therefore will be taken to the [facility] lab technician in the morning. IV heparin continues. We'll continue to monitor closely DIRECTOR OF SPECIAL SERVICES statement: Patient was seen and examined by nurse practitioner Khadijah Srivastava in all elements of the case discussed with attending is Dr. Huitron
[2016-11-22] MEDS: NITROGLYCERIN SL TABS 0.4 MG TAB SUBLINGUAL PRN ×2 (00:35→00:40)
[2016-11-22] MEDS: METOPROLOL TARTRATE 25 MG TAB PO SCH (06:37)
[2016-11-22] MEDS: ISOSORBIDE MONONITRATE ER 60 MG TAB.ER.24H PO SCH (06:37)
[2016-11-22] MEDS: LISINOPRIL 10 MG TAB PO SCH (06:37)
[2016-11-22 06:43] LABS: Basophils % (A) 1 %; CH 34.1; CHCM 35.8; Eosinophils # (A) 0.2 k/uL (0-0.7); Eosinophils % (A) 3 %; HCT 37.7 % (39.0-53.0); HDW 2.74; Luc % (Auto) 3; Lymphocytes # (A) 2.4 k/uL (1.0-4.8); Lymphocytes % (A) 39 %; MCHC 34.4 g/dL (31.0-37.0); MCV 95.7 fL (80.0-100.0); Mean Platelet Volume 6.6; Monocytes # (A) 0.4 k/uL (0-1.0); Monocytes % (A) 7 %; Neutrophils # (A) 2.9 k/uL (1.3-7.7); Neutrophils % (A) 48 %; RBC 3.94 m/uL (4.30-5.90); RDW 13.4 % (11.5-15.5); WBC 6.2 k/uL (3.8-10.6); WBC (Perox) 6.04
[2016-11-22 07:00] LABS: Glucose,Whole Blood 143 mg/dL (75-99)
--- NOTE | 2016-11-22 07:03 | PN ---
DATE OF SERVICE: 11/21/2016 ATTENDING NOTE: This patient was seen and examined by me earlier today. I reviewed the note of my nurse practitioner, Ms. Srivastava. Discussed, reviewed with additional findings below. This patient was admitted with unstable angina, had a stress test that was positive and was going to for cardiac catheterization. at the bedside. No further chest pain. On examination, blood pressure 120/68, respiration 16. LUNGS: Decreased breath sounds. CARDIOVASCULAR: First and second sounds normal. No edema. INVESTIGATIONS: Stress test positive. Troponin negative. ASSESSMENT: 1. Unstable angina in a patient with known coronary artery disease, now with a positive stress test. 2. IV heparin monitoring. PLAN: Continue current medication and treatment plan. Await cardiac catheterization. Care discussed with the patient and at the bedside.
[2016-11-22] MEDS ORDERED: LIDOCAINE 2% INJ 20 MG/ML (20 ML MDV) ONE (07:38)
[2016-11-22] MEDS ORDERED: fentaNYL (PF) 50 MCG/ML 2 ML AMP ONE (07:48)
[2016-11-22] MEDS ORDERED: MIDAZOLAM 2 MG/2 ML VIAL ONE (07:48)
[2016-11-22] MEDS ORDERED: IV FLUID CONTINUATION 950 ML IV ONE (07:58)
[2016-11-22] MEDS ORDERED: fentaNYL (PF) 50 MCG/ML 2 ML AMP IV ONE (08:06)
[2016-11-22] MEDS ORDERED: MIDAZOLAM 2 MG/2 ML VIAL IV ONE (08:07)
[2016-11-22] MEDS ORDERED: LIDOCAINE 2% INJ 20 MG/ML SQ ONE (08:13)
[2016-11-22] MEDS ORDERED: IOHEXOL 350 MG/ML 125ML BOTTLE INTRATHECA ONE (08:29)
[2016-11-22] MEDS ORDERED: RX INFO: IV CONTRAST WAS GIVEN 1 EACH MISC MISCELLANE PRN (08:49)
[2016-11-22] MEDS ORDERED: HYDROcodone/APAP 5-325MG 1 EACH TAB PO PRN (08:49)
--- NOTE | 2016-11-22 08:59 | P.PCN ---
Date of Procedure: 11/22/16 Preoperative Diagnosis: Unstable angina Postoperative Diagnosis: Stable coronary artery disease Procedure(s) Performed: Left heart catheterization without left ventriculography and selective injection of the bypass grafts Implants: Indications for Procedure: Operative Findings: Description of Procedure: HISTORY: This is a 61-year-old gentleman with history of previous bypass surgery and stent placement, who was admitted to the hospital with complaints of chest pain suggestive of unstable angina. Patient had a nuclear stress test that showed reversible ischemia in the inferolateral segments. A she is advised to have a cardiac catheterization for definitive diagnosis. CONSENT:I have discussed the risks, benefits and alternative therapies for the above-mentioned procedure and for both sedation/analgesia as well as necessary blood product administration, if indicated, as they pertain to this patient. The patient has indicated understanding and acceptance of the risks and procedures discussed. CONSCIOUS SEDATION: A she was given conscious sedation with 1 mg of Versed and 50 g of fentanyl and the duration of the sedation is 25 minutes PROCEDURE: Patient was brought to the lab in a fasting state. Patient was given some IV sedation. The right groin is infiltrated with lidocaine and right femoral artery was entered using Seldinger technique. A 6-[place]uv[place] catheter was left in place and selective coronary arteriography was performed. Patient tolerated the procedure well. Femoral angiogram was performed and manual compression l was applied for hemostasis. No immediate complications were noted and [facility] a [facility] condition HEMODYNAMICS: The aortic pressure is 100/70. The left ankle end-diastolic pressure is about 15-20. SELECTIVE CORONARY ARTERIOGRAPHY: LEFT MAIN: Normal length and patent THE LEFT ANTERIOR DESCENDING CORONARY ARTERY: This is a moderate caliber vessel with diffuse disease in the proximal portion with a 60 -70% stenosis. There appears to be related to flow in the distal LAD from WELSH graft. There is a moderate sized diagonal branch arising from the LAD which seemed to be free of any significant occlusive disease. THE LEFT CIRCUMFLEX AND IS CORONARY ARTERY: This is totally occluded. THE RIGHT CORONARY ARTERY: This is totally occluded. THE WELSH GRAFT TO THE LAD: This is patent throat its length and also the distal anastomosis. There appears to be competitive flow into the LAD from the [place] vessel. The vein graft to the OM branch : This is patent at the proximal and distal anastomosis. The previously placed stents are open. However, there is a limited flow into the distal bed. THE VEIN GRAFT TO CIRCUMFLEX: This is totally occluded at the proximal anastomosis. The vein graft to the RCA: This is patent at the proximal and distal anastomosis and throat its length. The distal RCA seemed to be dominant with the PDA and PLV branches. There is mild to moderate disease in this vessel. No change compared to the previous studies. LEFT VENTRICULOGRAPHY: not performed FINAL IMPRESSION: stable coronary artery disease with patent WELSH to the LAD, patent vein graft to the RCA and patent vein graft to the intermediate or OM branch. Recently patient stents in the OM branch appear to be patent. The bypass graft to the distal circumflex is totally occluded as documented before. PLAN: Maximum medical therapy and risk factor modification PROGNOSIS: guarded
[2016-11-22] MEDS ORDERED: SODIUM CHLORIDE 0.9% 1,000 ML IV SCH (09:00)
[2016-11-22] MEDS: SODIUM CHLORIDE 0.9% 1,000 ML IV SCH (09:33)
[2016-11-22] MEDS: ASPIRIN 325 MG TAB PO SCH (09:34)
[2016-11-22] MEDS: GEMFIBROZIL 600 MG TAB PO SCH (09:39)
[2016-11-22] MEDS: MULTIVITAMINS, THERA 1 EACH TAB PO SCH (09:40)
[2016-11-22] MEDS: CLOPIDOGREL 75 MG TAB PO SCH (09:40)
[2016-11-22] MEDS: PANTOPRAZOLE 40 MG TABLET PO SCH (09:40)
[2016-11-22 11:52] LABS: Glucose,Whole Blood 139 mg/dL (75-99)
[2016-11-22 16:04] VITALS: BP 121/67; PULSE 61; RESP 18; TEMP 97.5
--- NOTE | 2016-11-24 20:49 | DS ---
DATE OF ADMISSION: 11/20/2016 DATE OF DISCHARGE: 11/22/2016 FINAL DIAGNOSES: 1. Chest pain; could be angina. 2. Coronary artery disease with prior history of coronary artery disease. 3. Obesity; body mass index greater than 30. 4. Chronic obstructive pulmonary disease in an ex-smoker. 5. Diabetes mellitus, type 2, on oral hypoglycemic. 6. Gastroesophageal reflux disease. 7. Essential hypertension. 8. Intravenous heparin monitoring. HOSPITAL COURSE: This is a patient of Dr. Quinn who had a stent to the graft to OM by Dr. High. Patient presented with chest pressure; had a positive nuclear stress test. Cardiac catheterization showed no change from before. Patient's symptoms are resolved. On exam, lungs are clear. CARDIOVASCULAR: First and second sounds normal. CONSULTATIONS: Dr. Dickerson and Dr. Gentile from Cardiology. DISCHARGE MEDICATIONS: 1. Fish oil 1200 mg p.o. b.i.d. 2. Prilosec 20 mg with breakfast. 3. ProAir 1 to 2 puffs q.6 p.r.n. 4. Aspirin 81 mg at bedtime. 5. Lopid 600 mg b.i.d. 6. Imdur ER 60 mg b.i.d. 7. Zestril 10 mg p.o. daily. 8. Lopressor 25 p.o. b.i.d. 9. Men's Multivitamin 1 tablet p.o. daily. 10. CoQ10 100 mg p.o. daily. 11. Glucotrol XL 5 mg p.o. daily. 12. Plavix 75 mg p.o. daily. 13. Tylenol 650 mg p.o. q.4 p.r.n. 14. [place]-3 and flaxseed oil 1000 mg b.i.d. Follow up with Dr. Quinn in one week. Follow up with Dr. Dickerson in one week.
== END 2016-11-22 16:18 | disposition home or self-care (01) ==
LOC: EC 05:06 → 3OBS 07:12
PROVIDERS: ADMIT Hospitalist; ATTEND Hospitalist
DX: I25.110 Atherosclerotic heart disease of native coronary artery with unstable angina pectoris (principal); I45.2 Bifascicular block; K21.9 Gastro-esophageal reflux disease without esophagitis; J44.9 Chronic obstructive pulmonary disease, unspecified; I25.2 Old myocardial infarction; I10 Essential (primary) hypertension; E11.9 Type 2 diabetes mellitus without complications; H26.9 Unspecified cataract; Z79.899 Other long term (current) drug therapy; E78.5 Hyperlipidemia, unspecified; E66.9 Obesity, unspecified; Z79.82 Long term (current) use of aspirin; Z79.02 Long term (current) use of antithrombotics/antiplatelets; Z79.84 Long term (current) use of oral hypoglycemic drugs; Z88.2 Allergy status to sulfonamides; Z88.8 Allergy status to other drugs, medicaments and biological substances; Z95.1 Presence of aortocoronary bypass graft; Z87.891 Personal history of nicotine dependence; Z89.022 Acquired absence of left finger(s); Z68.30 Body mass index [BMI] 30.0-30.9, adult
CPT/HCPCS: 96361; 96365; 96366 ×2; 96375 ×2; 96376; 99285; 36415; 93005; 93017; 93459; 85379; 80061; 80053; 83036; 82550; 82553; 83735; 84484; 85025 ×3; 85610; 85730 ×2; 71010; 78452; G0378 ×3; C1894; C1769; A9500; J2001; J2250; J2270; J1644 ×2; J3010; J2785; Q9967

== ENCOUNTER 2017-02-12 19:08 | Observation (INO) | payer MEDICARE ==
[2017-02-12] MEDS ORDERED: ASPIRIN 81 MG PO STA (19:18)
[2017-02-12 19:50] LABS: Basophils % (A) 0 %; CH 33.9; CHCM 36.8; Eosinophils # (A) 0.1 k/uL (0-0.7); Eosinophils % (A) 2 %; HCT 36.9 % (39.0-53.0); HDW 2.99; HGB 13.7 gm/dL (13.0-17.5); Luc % (Auto) 3; Lymphocytes # (A) 1.6 k/uL (1.0-4.8); Lymphocytes % (A) 27 %; MCH 34.4 pg (25.0-35.0); MCHC 37.1 g/dL (31.0-37.0); MCV 92.7 fL (80.0-100.0); Mean Platelet Volume 6.7; Monocytes # (A) 0.4 k/uL (0-1.0); Monocytes % (A) 6 %; Neutrophils # (A) 3.8 k/uL (1.3-7.7); Neutrophils % (A) 62 %; RBC 3.98 m/uL (4.30-5.90); RDW 12.8 % (11.5-15.5); WBC 6.1 k/uL (3.8-10.6); WBC (Perox) 6.21
[2017-02-12 20:02] LABS: ALT 87 U/L (21-72); AST 56 U/L (17-59); Alkaline Phosphatase 60 U/L (38-126); Anion Gap 12 mmol/L; Blood Urea Nitrogen 15 mg/dL (9-20); Calcium 9.6 mg/dL (8.4-10.2); Carbon Dioxide 22 mmol/L (22-30); Chloride 105 mmol/L (98-107); Glucose 271 mg/dL (74-99); Magnesium 1.7 mg/dL (1.6-2.3); Non-African American GFR(MDRD) >60 (>60 ml/min/1.73 sqM); Potassium 4.2 mmol/L (3.5-5.1); Sodium 139 mmol/L (137-145); Total Bilirubin 0.3 mg/dL (0.2-1.3); Total Protein 7.4 g/dL (6.3-8.2)
--- NOTE | 2017-02-12 20:19 | XR ---
EXAMINATION TYPE: XR chest 2V DATE OF EXAM: 02/12/2017 COMPARISON: 11/20/2016 HISTORY: Shortness of breath TECHNIQUE: Frontal and lateral views of the chest are obtained. FINDINGS: Scattered senescent parenchymal changes noted. Hyperinflation compatible with COPD. No evidence for infiltrate. No evidence for atelectasis. Heart size is stable. Mediastinal structures are stable and grossly unremarkable. No evidence for hilar prominence. Degenerative changes dorsal spine. IMPRESSION: 1. No evidence for acute pulmonary disease.
[2017-02-12 20:26] LABS: Appearance,Urine Clear (Clear); Bilirubin,Urine Negative (Negative); Glucose,Urine (UA) 3+ (Negative); Ketones,Urine Negative (Negative); Leukocyte Esterase,Urine Negative (Negative); Mucus,Urine Rare /hpf; Nitrite,Urine Negative (Negative); PH, Urine 5.5 (5.0-8.0); Particle Count 1035; Protein,Urine 2+ (Negative); RBC,Urine <1 /hpf (0-5); Specific Gravity,Urine 1.015 (1.001-1.035); Squamous Epithelial Cell,Urine 1 /hpf (0-4); UA Billing (MACRO vs. MICRO) MICRO; Urobilinogen,Urine <2.0 mg/dL (<2.0); WBC,Urine 3 /hpf (0-5)
[2017-02-12 20:29] LABS: Partial Thromboplastin Time 22.6 sec (22.0-30.0); Prothrombin Time 10.4 sec (9.0-12.0)
[2017-02-12] MEDS ORDERED: MORPHINE SULFATE 4 MG/ML SYRINGE IV PRN (20:36)
[2017-02-12] MEDS ORDERED: ONDANSETRON 4 MG/2 ML VIAL IVP PRN (20:36)
[2017-02-12] MEDS ORDERED: NALOXONE 0.4 MG/ML 1 ML VIAL IV PRN (20:36)
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
[2017-02-12] MEDS ORDERED: METOPROLOL TARTRATE 25 MG TAB PO SCH (21:00)
[2017-02-12 22:27] VITALS: BMI 31.6
[2017-02-12] MEDS: FAMOTIDINE 20 MG TAB PO SCH (22:43)
[2017-02-12] MEDS: ISOSORBIDE MONONITRATE ER 60 MG TAB.ER.24H PO SCH (22:43)
[2017-02-12] MEDS: GEMFIBROZIL 600 MG TAB PO SCH (22:43)
[2017-02-13 04:04] VITALS: RESP 18
[2017-02-13] MEDS ORDERED: PANTOPRAZOLE 40 MG TABLET PO SCH (07:30)
[2017-02-13] MEDS: FAMOTIDINE 20 MG TAB PO SCH (08:10)
[2017-02-13] MEDS: GEMFIBROZIL 600 MG TAB PO SCH (08:10)
[2017-02-13] MEDS: ISOSORBIDE MONONITRATE ER 60 MG TAB.ER.24H PO SCH (08:11)
[2017-02-13] MEDS ORDERED: ASPIRIN 81 MG PO SCH (09:00)
[2017-02-13] MEDS ORDERED: METOPROLOL TARTRATE 25 MG TAB PO SCH (09:00)
[2017-02-13] MEDS ORDERED: CLOPIDOGREL 75 MG TAB PO SCH (09:00)
[2017-02-13] MEDS ORDERED: LISINOPRIL 10 MG TAB PO SCH (09:00)
[2017-02-13] MEDS ORDERED: ENOXAPARIN 40 MG/0.4 ML SYRINGE SQ SCH (09:00)
[2017-02-13 10:07] LABS: Hemoglobin A1C 7.5 % (4.2-6.1)
[2017-02-13 11:10] VITALS: BP 123/72
--- NOTE | 2017-02-13 11:18 | CONS ---
CONSULTATION A 61-year-old gentleman with a known history of CAD, previous bypass surgery, recent PCI of the vein graft to the obtuse marginal by Dr. High in June of this year that was patent in December. He sees Dr. Dickerson in the outpatient setting. He also has history of type 2 diabetes, hypertension and hyperlipidemia. He was working in the yard yesterday moving some heavy logs and then developed a sharp pain in the chest very atypical. It took his breath away. After that, he felt better. He backed off then later on had a tingling feeling in the left arm, took some nitro with some relief and then came into the hospital. No recurrence of pain. Pain itself seems atypical. As recently as 2-1/2 months ago his coronaries revealed no significant issues. There were 2 grafts to the circumflex system, one was a vein graft to the obtuse marginal that was stented in June was widely patent, but the distal area appears to be small. The vein graft to circumflex is occluded. Vein graft to RCA is patent. The WELSH to LAD is also patent throughout its length. There is some competitive flow. Based on the anatomy from November 22, there is no change. The distal circumflex bypass is occluded and it is not a new occlusion. The patient does have areas of ischemia probably and his moderate physical effort may have precipitated some angina although pain was atypical. Troponins are normal. He is resting comfortably without symptoms. PAST MEDICAL HISTORY: 1. CAD with previous bypass surgery and PCI. 2. Hypertension. 3. Hypercholesterolemia. 4. Type 2 diabetes mellitus. MEDICATIONS: Mediations at home include aspirin 81 mg daily, Plavix 75 mg daily, Lopid 600 mg daily, metoprolol tartrate 25 mg b.i.d., Glucotrol XL 5 mg daily. He also takes a multivitamin and albuterol inhaler, lisinopril 10 mg daily. ALLERGIES: Allergic to STATIN MEDICATIONS. LABORATORY DATA: Suggests the troponins are normal. His sugar was elevated. PHYSICAL EXAMINATION: On examination, blood pressure is 130/80, pulse rate is about 74 per minute, regular. HEENT: Unremarkable. Fundus was not examined by me. NECK: Supple. There is no JVD. I do not hear a carotid bruit. Heart exam reveals S1, S2 heard normally without a rub, murmur or gallop. Lungs are clear. ABDOMEN: Soft, nontender. Lower extremities reveal normal pulses, no edema. Central nervous system is normal. EKG revealed a sinus mechanism with right bundle branch block pattern and repolarization abnormality, leftward axis. IMPRESSION: 1. Chest pain syndrome atypical in a patient with known coronary artery disease and probably has stable angina. 2. Hypertension. 3. Type 2 diabetes mellitus. 4. Hyperlipidemia. RECOMMENDATIONS: I am recommending that we should increase metoprolol tartrate to 25 mg p.o. t.i.d., increase activity. He can be discharged after his breakfast. From a cardiac standpoint, I have advised the patient that he should reduce the intensity of his physical activity since he does have some ischemic areas of the circumflex distribution and also increase the beta josie. No further testing or intervention necessary based on his clinical picture and recent cardiac cath. Discussed my thoughts in detail with the patient. Thank you very much for the consult. RAOY / HEMALATHAN: [id number] /
[2017-02-13 11:29] VITALS: PULSE 60; TEMP 98.3
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
--- NOTE | 2017-02-14 13:24 | DS ---
DISCHARGE SUMMARY DISCHARGE SUMMARY DATE OF ADMISSION: 02/12/2017 DATE OF DISCHARGE: 02/13/2017 FINAL DIAGNOSES: 1. Left anterior chest wall chest pain in a patient with known coronary artery disease, appears to be more musculoskeletal. 2. Coronary artery disease, prior history of coronary intervention. 3. Obesity, body mass index greater than 30. 4. Chronic obstructive pulmonary disease in an ex-smoker. 5. Diabetes mellitus type 2 on oral hypoglycemics. 6. Gastroesophageal reflux disease. 7. Essential hypertension. CNC PROGRAMMER: Dr. Kaylan Guadarrama of Cardiology. HOSPITAL COURSE: This is a 61-year-old patient who has a significant cardiac history, was here in November of this year as well as in June of this year and had a stent to the OM done by Dr. High. Presented to the emergency department with left anterior chest wall chest pain, sharp to dull, lasting for about 30 seconds with radiation down the left arm for short period of time. Patient was at rest at that time. Had no associated symptoms of perspiration, dizziness, lightheadedness or shortness of breath, therefore came to the emergency department for further evaluation. Cardiology was consulted. Diagnostic testing ordered, EKG ordered. Patient had no further episodes of chest pain. Cardiac markers negative. Cardiology recommended increasing metoprolol to 25 mg p.o. t.i.d. and also recommended reducing the intensity of his activity as he has some ischemic areas in the circumflex. The beta josie should help with this. No further testing or intervention necessary based on the clinical picture and recent cardiac cath. The patient is ambulatory in the room and hallways, tolerating his diet. Moving his bowels. Condition overall stable with no further episodes of chest pain, shortness of breath, perspiration, sweating. Patient would like to go home and is stable for discharge. DISCHARGE MEDICATIONS: 1. Fish oil 1200 mg 1 cap p.o. b.i.d. 2. Omeprazole 20 mg p.o. daily. 3. Albuterol 1 to 2 puffs inhalation q.6 hours p.r.n. 4. Aspirin 81 mg p.o. daily. 5. Gemfibrozil 600 mg p.o. b.i.d. 6. Imdur 60 mg p.o. b.i.d. 7. Lisinopril 10 mg p.o. daily. 8. Multivitamin 1 tab p.o. daily. 9. Co Q10, 100 mg p.o. daily. 10.Glucotrol XL 5 mg p.o. daily. 11.Plavix 75 mg p.o. daily. 12.Flaxseed oil 1000 mg p.o. b.i.d. 13.Metoprolol 25 mg p.o. t.i.d. DISPOSITION: Patient to be discharged home to the care of his family. MMALEYDA / CHRISTEN: [id number] /
--- NOTE | 2017-02-15 10:57 | DS ---
DISCHARGE SUMMARY ATTENDING NOTE: The patient seen and exam by me. I discussed with my nurse practitioner, Ms. Srivastava. Patient's chest pain is felt to be musculoskeletal. Seen by Cardiology and okay to be discharged. EXAMINATION: On examination, LUNGS: Slightly decreased breath sounds. CARDIOVASCULAR: First and second sounds normal. FINAL DIAGNOSES: 1. Left anterior chest wall pain felt to be musculoskeletal. 2. Coronary artery disease with prior history of intervention. DC home. Plan is discussed. MMODL / IJN: [id number] /
== END 2017-02-13 12:18 | disposition home or self-care (01) ==
LOC: EC 19:08 → 3OBS 20:36
PROVIDERS: ADMIT Hospitalist; ATTEND Hospitalist
DX: R07.89 Other chest pain (principal); I25.10 Atherosclerotic heart disease of native coronary artery without angina pectoris; R20.2 Paresthesia of skin; R11.0 Nausea; E66.9 Obesity, unspecified; Z68.31 Body mass index [BMI] 31.0-31.9, adult; J44.9 Chronic obstructive pulmonary disease, unspecified; Z87.891 Personal history of nicotine dependence; E11.9 Type 2 diabetes mellitus without complications; K21.9 Gastro-esophageal reflux disease without esophagitis; I10 Essential (primary) hypertension; I25.2 Old myocardial infarction; E78.00 Pure hypercholesterolemia, unspecified; Z79.899 Other long term (current) drug therapy; Z79.82 Long term (current) use of aspirin; Z79.84 Long term (current) use of oral hypoglycemic drugs; Z79.02 Long term (current) use of antithrombotics/antiplatelets; Z88.8 Allergy status to other drugs, medicaments and biological substances; Z88.2 Allergy status to sulfonamides; Z95.1 Presence of aortocoronary bypass graft; Z95.5 Presence of coronary angioplasty implant and graft; Z80.1 Family history of malignant neoplasm of trachea, bronchus and lung
CPT/HCPCS: 99285; 36415; 93005; 83880; 80053; 83036; 83735; 84484 ×2; 85025; 85610; 85730; 81001; 71020; G0378 ×2

== ENCOUNTER 2017-07-14 18:20 | Observation (INO) | payer MEDICARE ==
[2017-07-14] MEDS ORDERED: ASPIRIN 81 MG PO STA (18:31)
[2017-07-14 18:53] LABS: Basophils % (A) 0 %; Eosinophils # (A) 0.1 k/uL (0-0.7); Eosinophils % (A) 1 %; HCT 41.3 % (39.0-53.0); HGB 14.6 gm/dL (13.0-17.5); Lymphocytes # (A) 1.6 k/uL (1.0-4.8); Lymphocytes % (A) 19 %; MCH 33.3 pg (25.0-35.0); MCHC 35.3 g/dL (31.0-37.0); MCV 94.4 fL (80.0-100.0); Mean Platelet Volume 6.4; Monocytes # (A) 0.4 k/uL (0-1.0); Monocytes % (A) 5 %; Neutrophils % (A) 72 %; Platelet Count 261 k/uL (150-450); RBC 4.38 m/uL (4.30-5.90); RDW 12.6 % (11.5-15.5); WBC 8.3 k/uL (3.8-10.6)
[2017-07-14 19:09] LABS: ALT 61 U/L (21-72); AST 38 U/L (17-59); Albumin 4.7 g/dL (3.5-5.0); Alkaline Phosphatase 64 U/L (38-126); Anion Gap 14 mmol/L; Blood Urea Nitrogen 16 mg/dL (9-20); Calcium 10.4 mg/dL (8.4-10.2); Carbon Dioxide 24 mmol/L (22-30); Chloride 104 mmol/L (98-107); Glucose 193 mg/dL (74-99); Magnesium 1.8 mg/dL (1.6-2.3); Potassium 4.8 mmol/L (3.5-5.1); Sodium 142 mmol/L (137-145); Total Bilirubin 0.4 mg/dL (0.2-1.3); Total Protein 7.9 g/dL (6.3-8.2)
[2017-07-14 19:14] LABS: Partial Thromboplastin Time 23.2 sec (22.0-30.0); Prothrombin Time 10.1 sec (9.0-12.0)
[2017-07-14 19:21] LABS: Troponin I <0.012 ng/mL (0.000-0.034)
[2017-07-14 19:24] LABS: Creatine Kinase MB 5.8 ng/mL (0.0-2.4)
--- NOTE | 2017-07-14 19:28 | XR ---
EXAMINATION: XR chest 2V DATE AND TIME: 07/14/2017 6:54 PM ORDERING PROVIDER: Alejandro Choudhary DO CLINICAL INDICATION: Chest Pressure TECHNIQUE: PA and lateral COMPARISON: 02/12/2017 DESCRIPTION: Sternal sutures noted. The lungs are clear. The pleural spaces are negative. The cardiac silhouette is not enlarged. The mediastinal and pleural silhouettes are unremarkable. The skeletal structures are intact without focal findings. The soft tissues are unremarkable. IMPRESSION: NO ACUTE PROCESS.
[2017-07-14] MEDS ORDERED: NITROGLYCERIN SL TABS 0.4 MG TAB SUBLINGUAL PRN (19:40)
[2017-07-14] MEDS ORDERED: HEPARIN SODIUM,PORCINE 5,000 UNIT/ML 1 ML VIAL IV ONE (19:40)
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
[2017-07-14] MEDS ORDERED: HEPARIN SOD,PORK IN 0.45% NACL 25,000 UNIT in 0.45% NACL 1 500ML.BAG IV SCH (19:45)
[2017-07-14] MEDS ORDERED: NON-FORMULARY DRUG (Fish Oil/Dha/Epa [Fish Oil 1,200 Mg Fish Oil] 1 CAP) PO SCH (21:00)
[2017-07-14] MEDS ORDERED: NON-FORMULARY DRUG (Flaxseed Oil [Omega-3 Flaxseed Oil] 1,000 MG) PO SCH (21:00)
[2017-07-14 21:59] VITALS: BMI 29.7
[2017-07-14] MEDS ORDERED: glipiZIDE 5 MG TAB PO STA (22:09)
[2017-07-14] MEDS: METOPROLOL TARTRATE 25 MG TAB PO SCH (22:36)
[2017-07-14] MEDS: GEMFIBROZIL 600 MG TAB PO SCH (22:37)
[2017-07-14] MEDS: ISOSORBIDE MONONITRATE ER 60 MG TAB.ER.24H PO SCH (22:37)
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
[2017-07-15 02:10] LABS: Troponin I 0.016 ng/mL (0.000-0.034)
[2017-07-15 02:15] LABS: Creatine Kinase MB 4.1 ng/mL (0.0-2.4)
[2017-07-15] MEDS ORDERED: PANTOPRAZOLE 40 MG TABLET PO SCH (07:30)
[2017-07-15 07:52] LABS: Creatine Kinase 135 U/L (55-170)
[2017-07-15 08:04] LABS: Troponin I <0.012 ng/mL (0.000-0.034)
[2017-07-15 08:08] LABS: Cholesterol 145 mg/dL (<200); HDL Cholesterol 37 mg/dL (40-60); LDL Cholesterol,Calculated 57 mg/dL (0-99); Triglycerides 255 mg/dL (<150)
[2017-07-15 08:11] LABS: Creatine Kinase MB 4.5 ng/mL (0.0-2.4)
[2017-07-15 08:16] VITALS: RESP 18
[2017-07-15] MEDS ORDERED: NON-FORMULARY DRUG (Ubidecarenone [Co Q-10] 100 MG) PO SCH (09:00)
[2017-07-15] MEDS ORDERED: LISINOPRIL 10 MG TAB PO SCH (09:00)
[2017-07-15] MEDS ORDERED: ASPIRIN 81 MG PO SCH (09:00)
[2017-07-15] MEDS ORDERED: glipiZIDE 5 MG TAB PO SCH (09:00)
[2017-07-15] MEDS ORDERED: CLOPIDOGREL 75 MG TAB PO SCH (09:00)
[2017-07-15] MEDS ORDERED: ASPIRIN 325 MG TAB PO SCH (09:00)
[2017-07-15] MEDS: ALBUTEROL NEBULIZED 2.5 MG/3 ML INHALATION PRN ×2 (09:21→13:35)
[2017-07-15] MEDS ORDERED: RANOLAZINE 500 MG TAB.ER.12H PO SCH (10:00)
[2017-07-15] MEDS: GEMFIBROZIL 600 MG TAB PO SCH (10:43)
[2017-07-15] MEDS: METOPROLOL TARTRATE 25 MG TAB PO SCH (10:44)
[2017-07-15] MEDS: ISOSORBIDE MONONITRATE ER 60 MG TAB.ER.24H PO SCH (11:24)
[2017-07-15] MEDS ORDERED: MULTIVITAMINS, THERA 1 EACH TAB PO SCH (12:00)
[2017-07-15 12:02] LABS: Glucose,Whole Blood 199 mg/dL (75-99)
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
[2017-07-15 16:14] VITALS: BP 105/50; PULSE 63; TEMP 98.3
--- NOTE | 2017-07-15 18:25 | ECHOF ---
Referral Reason:chest pain MEASUREMENTS -------- HEIGHT: 182.9 cm WEIGHT: 98.9 kg BP: 126/66 RVIDd: 4.5 cm (< 3.3) IVSd: 1.3 cm (0.6 - 1.1) LVIDd: 5.6 cm (3.9 - 5.3) LVPWd: 1.0 cm (0.6 - 1.1) IVSs: 1.7 cm LVIDs: 4.3 cm LVPWs: 1.3 cm Ao Diam: 4.3 cm (2.0 - 3.7) MV EXCURSION: 23.601 mm (> 18.000) MV EF SLOPE: 115 mm/s (70 - 150) EPSS: 1.5 cm MV E Parminder: 1.12 m/s MV DecT: 226 ms MV A Parminder: 0.74 m/s MV E/A Ratio: 1.51 RAP: 5.00 mmHg RVSP: 43.28 mmHg FINDINGS -------- Sinus rhythm. This was a techncally difficult study with suboptimal views, , Lumason utilized for enhancement of im ages. The left ventricle is mildly dilated. There is mild concentric left ventricular hypertrophy. Over all left ventricular systolic function is mild-moderately impaired with, an EF between 40 - 45 %. B kanu lateral LV wall motion is hypokinetic. Basal inferior LV wall motion is hypokinetic. Mid l ateral LV wall motion is hypokinetic. Mid inferior LV wall motion is hypokinetic. Atypical sept al wall motion The right ventricle is moderate to severely enlarged. The right atrial size is normal. 5.0mg OF Lumason UTLIZED: 2 OR MORE WALL SEGMENTS NOT VISUALIZED. There is mild aortic valve sclerosis. Mild mitral annular calcification present. Mild mitral regurgitation is present. Xbxz-[id number] tricuspid regurgitation present. There is mild to moderate pulmonary hypertension. The right ventricular systolic pressure, as measured by Doppler, is 43.28mmHg. The pulmonic valve was not well visualized. There is no pulmonic regurgitation present. The aortic root size is normal. There is no pericardial effusion. CONCLUSIONS -------- 1. This was a techncally difficult study with suboptimal views, , Lumason utilized for enhancement of images. 2. The left ventricle is mildly dilated. 3. There is mild concentric left ventricular hypertrophy. 4. Overall left ventricular systolic function is mild-moderately impaired with, an EF between 40 - 45 %. 5. Basal lateral LV wall motion is hypokinetic. 6. Basal inferior LV wall motion is hypokinetic. 7. Mid lateral LV wall motion is hypokinetic. 8. Mid inferior LV wall motion is hypokinetic. 9. Atypical septal wall motion 10. The right ventricle is moderate to severely enlarged. 11. 5.0mg OF Lumason UTLIZED: 2 OR MORE WALL SEGMENTS NOT VISUALIZED. 12. There is mild aortic valve sclerosis. 13. Mild mitral annular calcification present. 14. Mild mitral regurgitation is present. 15. Qltf-zt-bffthjgr tricuspid regurgitation present. 16. There is mild to moderate pulmonary hypertension. 17. The right ventricular systolic pressure, as measured by Doppler, is 43.28mmHg. 18. The pulmonic valve was not well visualized. 19. There is no pulmonic regurgitation present. 20. The aortic root size is normal. 21. There is no pericardial effusion. BLOWER INSTALLER: Gretel Roblero RDCS
[2017-07-15 19:24] LABS: Hemoglobin A1C 6.4 % (4.0-6.0)
--- NOTE | 2017-07-16 03:53 | DS ---
DISCHARGE SUMMARY DATE OF ADMISSION: 07/14/17. DATE OF DISCHARGE: 07/15/17. FINAL DIAGNOSES: 1. Possible unstable angina in a patient with known coronary artery disease. 2. Coronary artery disease with prior history of bypass and stents. 3. Obesity; BMI greater than 30. 4. Chronic obstructive pulmonary disease in an ex-smoker. 5. Diabetes mellitus type 2 on oral hypoglycemic. 6. Gastroesophageal reflux disease. 7. Essential hypertension. 8. Chronic congestive heart failure from systolic dysfunction, EF 40-45% from underlying coronary artery disease. CONSULTATIONS: [facility] HOSPITAL COURSE: This patient known coronary artery disease presented with some chest pain. A 2D echocardiogram was done that did show some hypokinetic cooper and EF 40-45%. The patient was cleared by Cardiology to go home. Medications were adjusted. DISCHARGE MEDICATIONS: 1. Fish oil 1200 mg p.o. b.i.d. 2. Prilosec 20 mg p.o. daily. 3. ProAir 2 puffs q.6h p.r.n. 4. Aspirin 81 mg p.o. q.h.s. 5. Lopid 600 mg p.o. b.i.d. 6. Zestril 10 mg p.o. daily. 7. Men's multivitamin 1 tab p.o. daily. 8. CO Q 10 100 mg p.o. daily. 9. Plavix 75 mg p.o. daily. 10.[place]-3 flaxseed oil 1000 mg p.o. b.i.d. 11.Lopressor 25 p.o. b.i.d. 12.Glucotrol XL 10 mg p.o. daily. 13.Imdur 120 mg p.o. daily. 14.Ranexa 500 mg p.o. q.12. FOLLOW UP: With Dr. Quinn in 1 week, follow up with Dr. Dickerson. PHYSICAL EXAMINATION: On examination lungs are clear. Cardiovascular 1st and second sounds normal. MMODL / IJN: [id number] /
[2017-07-16] MEDS ORDERED: ISOSORBIDE MONONITRATE ER 60 MG TAB.ER.24H PO SCH (09:00)
== END 2017-07-15 17:14 | disposition home or self-care (01) ==
LOC: EC 18:20 → 3OBS 19:40
PROVIDERS: ADMIT Hospitalist; ATTEND Hospitalist
DX: R07.89 Other chest pain (principal); I25.119 Atherosclerotic heart disease of native coronary artery with unspecified angina pectoris; I25.719 Atherosclerosis of autologous vein coronary artery bypass graft(s) with unspecified angina pectoris; I25.82 Chronic total occlusion of coronary artery; I11.0 Hypertensive heart disease with heart failure; I50.22 Chronic systolic (congestive) heart failure; E11.649 Type 2 diabetes mellitus with hypoglycemia without coma; J44.9 Chronic obstructive pulmonary disease, unspecified; E78.5 Hyperlipidemia, unspecified; E66.9 Obesity, unspecified; Z68.30 Body mass index [BMI] 30.0-30.9, adult; K21.9 Gastro-esophageal reflux disease without esophagitis; I25.2 Old myocardial infarction; Z89.022 Acquired absence of left finger(s); Z95.1 Presence of aortocoronary bypass graft; Z79.82 Long term (current) use of aspirin; Z79.02 Long term (current) use of antithrombotics/antiplatelets; Z79.84 Long term (current) use of oral hypoglycemic drugs; Z79.899 Other long term (current) drug therapy; Z95.5 Presence of coronary angioplasty implant and graft; Z87.891 Personal history of nicotine dependence; Z88.2 Allergy status to sulfonamides; Z88.8 Allergy status to other drugs, medicaments and biological substances; Z82.49 Family history of ischemic heart disease and other diseases of the circulatory system; Z80.1 Family history of malignant neoplasm of trachea, bronchus and lung; Z80.0 Family history of malignant neoplasm of digestive organs
CPT/HCPCS: 99285 ×2; 96365 ×2; 96376 ×2; 96366 ×2; 36415; 94640 ×2; 93005; 80061; 80053; 82550; 82553 ×2; 83735; 84484 ×2; 85025; 85610; 85730 ×2; 83036; 71046; G0378 ×2; C8929; J1644 ×2; Q9950; 93306

== ENCOUNTER 2017-12-17 13:14 | Observation (INO) | payer MEDICARE ==
[2017-12-17] MEDS ORDERED: ASPIRIN 81 MG PO STA (13:28)
[2017-12-17] MEDS ORDERED: MORPHINE SULFATE 2 MG/ML SYRINGE IV STA (13:28)
[2017-12-17] MEDS ORDERED: SODIUM CHLORIDE 0.9% 1,000 ML IV STA (13:28)
[2017-12-17] MEDS ORDERED: ONDANSETRON 4 MG/2 ML VIAL IVP STA (13:28)
[2017-12-17 13:57] LABS: Basophils % (A) 0 %; Eosinophils # (A) 0.2 k/uL (0-0.7); Eosinophils % (A) 2 %; HCT 43.9 % (39.0-53.0); Lymphocytes # (A) 2.2 k/uL (1.0-4.8); Lymphocytes % (A) 24 %; MCH 32.5 pg (25.0-35.0); MCHC 34.2 g/dL (31.0-37.0); Mean Platelet Volume 6.7; Monocytes # (A) 0.6 k/uL (0-1.0); Monocytes % (A) 7 %; Neutrophils # (A) 5.8 k/uL (1.3-7.7); Neutrophils % (A) 65 %; Platelet Count 277 k/uL (150-450); RBC 4.62 m/uL (4.30-5.90); RDW 12.7 % (11.5-15.5)
[2017-12-17 14:08] LABS: ALT 45 U/L (21-72); AST 28 U/L (17-59); Albumin 4.5 g/dL (3.5-5.0); Alkaline Phosphatase 58 U/L (38-126); Anion Gap 11 mmol/L; Blood Urea Nitrogen 19 mg/dL (9-20); Calcium 10.1 mg/dL (8.4-10.2); Carbon Dioxide 23 mmol/L (22-30); Chloride 106 mmol/L (98-107); Glucose 134 mg/dL (74-99); Magnesium 2.1 mg/dL (1.6-2.3); Potassium 4.7 mmol/L (3.5-5.1); Sodium 140 mmol/L (137-145); Total Bilirubin 0.4 mg/dL (0.2-1.3); Total Protein 7.3 g/dL (6.3-8.2)
--- NOTE | 2017-12-17 14:10 | XR ---
EXAMINATION TYPE: XR chest 2V DATE OF EXAM: 12/17/2017 COMPARISON: Prior chest 07/14/2017 HISTORY: Chest pain TECHNIQUE: Frontal and lateral views of the chest are obtained on 4 images. FINDINGS: There is no significant interval change. Patient is post median sternotomy and there are ov erlying cardiac leads. Prominent lung volume may be indicative of COPD. There is no focal air space o pacity, pleural effusion, or pneumothorax seen. The cardiac silhouette size is within normal limits. The osseous structures are intact. IMPRESSION: No acute cardiopulmonary process.
[2017-12-17 14:19] LABS: D-Dimer 0.42 mg/L FEU (<0.60); Partial Thromboplastin Time 23.2 sec (22.0-30.0); Prothrombin Time 10.2 sec (9.0-12.0)
[2017-12-17] MEDS ORDERED: ACETAMINOPHEN TAB 325 MG TAB PO PRN (14:49)
[2017-12-17] MEDS ORDERED: NITROGLYCERIN SL TABS 0.4 MG TAB SUBLINGUAL PRN (14:49)
[2017-12-17] MEDS ORDERED: HEPARIN SODIUM,PORCINE 5,000 UNIT/ML 1 ML VIAL IV ONE (14:49)
[2017-12-17] MEDS ORDERED: MORPHINE SULFATE 2 MG/ML SYRINGE IV PRN (14:49)
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
[2017-12-17] MEDS ORDERED: ALBUTEROL NEBULIZED 2.5 MG/3 ML INHALATION PRN (14:53)
[2017-12-17] MEDS ORDERED: HEPARIN SOD,PORK IN 0.45% NACL 25,000 UNIT in 0.45% NACL 1 500ML.BAG IV SCH (15:00)
[2017-12-17 15:07] LABS: Creatine Kinase MB 4.7 ng/mL (0.0-2.4)
[2017-12-17 19:14] VITALS: RESP 18; TEMP 97.9
[2017-12-17 19:38] LABS: Creatine Kinase 134 U/L (55-170)
[2017-12-17 19:51] LABS: Troponin I <0.012 ng/mL (0.000-0.034)
[2017-12-17 19:54] LABS: Creatine Kinase MB 4.7 ng/mL (0.0-2.4)
[2017-12-17 20:50] VITALS: BP 119/67; PULSE 57
[2017-12-17] MEDS ORDERED: METOPROLOL TARTRATE 25 MG TAB PO SCH (21:00)
[2017-12-17] MEDS ORDERED: RANOLAZINE 500 MG TAB.ER.12H PO SCH (21:00)
[2017-12-17] MEDS ORDERED: ISOSORBIDE MONONITRATE ER 60 MG TAB.ER.24H PO SCH (21:00)
[2017-12-17] MEDS ORDERED: ASPIRIN 81 MG PO SCH (21:00)
[2017-12-17] MEDS ORDERED: NON-FORMULARY DRUG (Flaxseed Oil [Omega-3 Flaxseed Oil] 1,000 MG) PO SCH (21:00)
[2017-12-17] MEDS ORDERED: NON-FORMULARY DRUG (Fish Oil/Dha/Epa [Fish Oil 1,200 Mg Fish Oil] 1 CAP) PO SCH (21:00)
[2017-12-17] MEDS ORDERED: glipiZIDE 5 MG TAB PO SCH (21:00)
[2017-12-17] MEDS ORDERED: GEMFIBROZIL 600 MG TAB PO SCH (21:00)
[2017-12-17] MEDS ORDERED: HEPARIN SODIUM,PORCINE 5,000 UNIT/ML 1 ML VIAL IV PRN (22:52)
[2017-12-18] MEDS ORDERED: PANTOPRAZOLE 40 MG TABLET PO SCH (07:30)
[2017-12-18] MEDS ORDERED: ASPIRIN 325 MG TAB PO SCH (09:00)
[2017-12-18] MEDS ORDERED: CLOPIDOGREL 75 MG TAB PO SCH (09:00)
[2017-12-18] MEDS ORDERED: NON-FORMULARY DRUG (Ubidecarenone [Co Q-10] 100 MG) PO SCH (09:00)
[2017-12-18] MEDS ORDERED: LISINOPRIL 10 MG TAB PO SCH (09:00)
[2017-12-18] MEDS ORDERED: MULTIVITAMINS, THERA 1 EACH TAB PO SCH (12:00)
[2017-12-18 15:01] LABS: Hemoglobin A1C 6.5 % (4.0-6.0)
== END 2017-12-17 23:45 | disposition left against medical advice (07) ==
LOC: EC 13:14 → 3OBS 15:01
PROVIDERS: ADMIT Hospitalist; ATTEND Hospitalist
DX: R07.9 Chest pain, unspecified (principal); R06.02 Shortness of breath; R10.9 Unspecified abdominal pain; I25.10 Atherosclerotic heart disease of native coronary artery without angina pectoris; E11.9 Type 2 diabetes mellitus without complications; J44.9 Chronic obstructive pulmonary disease, unspecified; K21.9 Gastro-esophageal reflux disease without esophagitis; I25.2 Old myocardial infarction; Z95.1 Presence of aortocoronary bypass graft; Z95.5 Presence of coronary angioplasty implant and graft; Z79.899 Other long term (current) drug therapy; Z79.82 Long term (current) use of aspirin; Z79.02 Long term (current) use of antithrombotics/antiplatelets; Z79.84 Long term (current) use of oral hypoglycemic drugs; Z88.8 Allergy status to other drugs, medicaments and biological substances; Z88.2 Allergy status to sulfonamides; Z89.022 Acquired absence of left finger(s); Z87.891 Personal history of nicotine dependence; Z80.1 Family history of malignant neoplasm of trachea, bronchus and lung; Z53.21 Procedure and treatment not carried out due to patient leaving prior to being seen by health care provider
CPT/HCPCS: 96366 ×8; 96376 ×2; 96361 ×2; 96365 ×2; 96375 ×2; 99291; 36415; 93005; 85379; 83880; 80053; 82550; 82553; 83735; 84484; 85025; 85610; 85730; 83036; 71046; G0378; J1644 ×2; J2270

== ENCOUNTER → 2019-07-05 | Outpatient (CLI) | payer MEDICARE ==
[2019-07-05 16:13] LABS: African American GFR (CKD) >90 (>60 ml/min/1.73 sqM); Anion Gap 9 mmol/L; Blood Urea Nitrogen 17 mg/dL (9-20); Carbon Dioxide 22 mmol/L (22-30); Chloride 109 mmol/L (98-107); Glucose 84 mg/dL (74-99); Non-African American GFR(CKD) 87 (>60 ml/min/1.73 sqM); Potassium 4.3 mmol/L (3.5-5.1); Sodium 140 mmol/L (137-145)
[2019-07-05 16:27] LABS: HCT 39.6 % (39.0-53.0); HGB 13.6 gm/dL (13.0-17.5); MCHC 34.4 g/dL (31.0-37.0); Mean Platelet Volume 7.3; Platelet Count 253 k/uL (150-450); RBC 4.13 m/uL (4.30-5.90); RDW 12.5 % (11.5-15.5); WBC 7.3 k/uL (3.8-10.6)
== END | disposition home or self-care (01) ==
LOC: LABPAT 15:04
PROVIDERS: ATTEND Internal Medicine Cardiovascular Disease
DX: Z01.812 Encounter for preprocedural laboratory examination (principal); E78.00 Pure hypercholesterolemia, unspecified; R07.9 Chest pain, unspecified
CPT/HCPCS: 36415; 80051; 82565; 82947; 84520; 85027

== ENCOUNTER 2019-07-14 06:28 | Day surgery (SDC) | payer MEDICARE ==
[2019-07-12 10:31] VITALS: BMI 28.8
[~2019-07-14 06:28] MED LIST: ALPRAZolam 0.25 MG TAB PO PRN; ALPRAZolam 0.5 MG TAB PO PRN; NITROGLYCERIN SL TABS 0.4 MG TAB SUBLINGUAL PRN; SODIUM CHLORIDE 0.9% 1,000 ML in EMPTY BAG 1 BAG IV ONE
[2019-07-14] MEDS ORDERED: ASPIRIN 325 MG TAB PO ONE (07:00)
[2019-07-14 07:14] LABS: Glucose,Whole Blood 114 mg/dL (75-99)
[2019-07-14] MEDS ORDERED: fentaNYL (PF) 50 MCG/ML 2 ML AMP IVP ONE (07:55)
[2019-07-14] MEDS ORDERED: LIDOCAINE 1% INJ 10MG/ML (20 ML MDV) SQ ONE (07:55)
[2019-07-14] MEDS ORDERED: MIDAZOLAM 2 MG/2 ML VIAL IVP ONE (07:55)
[2019-07-14] MEDS ORDERED: IOPAMIDOL-370 125ML BTL INJ ONE (08:19)
[2019-07-14] MEDS ORDERED: RX INFO: IV CONTRAST WAS GIVEN 1 EACH MISC MISCELLANE PRN (08:24)
[2019-07-14] MEDS ORDERED: SODIUM CHLORIDE 0.9% 1,000 ML IV SCH (08:30)
--- NOTE | 2019-07-14 08:33 | P.CARDCATH ---
Date of Procedure: 07/14/19 Preoperative Diagnosis: Stable angina with positive stress test Postoperative Diagnosis: Total occlusion of the graft to the OM branch with stable coronary artery disease, otherwise Procedure(s) Performed: Left heart catheterization without left ventriculography Description of Procedure: HISTORY: This is a 63-year-old gentleman with history of ischemic heart disease with 2 bypass surgeries and also stent placement of the vein graft to the OM branch. Recently patient has been having increasing anginal symptoms and had a positive stress test which was a size to of ischemia involving the lateral wall. Patient is advised to have a cardiac catheterization for definitive diagnosis CONSENT:I have discussed the risks, benefits and alternative therapies for the above-mentioned procedure and for both sedation/analgesia as well as necessary blood product administration, if indicated, as they pertain to this patient. The patient has indicated understanding and acceptance of the risks and procedures discussed. PROCEDURE: Patient was brought to the lab in a fasting state. Patient was given some IV sedation. The right groin is infiltrated with lidocaine and right femoral artery was entered using Seldinger technique. A 6-Tamazight catheter was left in place and selective coronary arteriography and selective injection of the WELSH graft, vein graft to the RCA and vein graft to the OM branch was performed. Patient tolerated the procedure well. Manual compression was applied for hemostasis. No immediate complications were noted and patient was transferred to [facility] in a stable condition Conscious Sedation: Versed 1mg Fentanyl 25 g Duration 25minutes HEMODYNAMICS: The aortic pressure is about 130/70. Left ventricle end-diastolic pressures were not measured SELECTIVE CORONARY ARTERIOGRAPHY: LEFT MAIN: Normal size and length and patent without any significant occlusive disease THE LEFT ANTERIOR DESCENDING CORONARY ARTERY:. This is totally occluded after giving is a first diagonal branch THE LEFT CIRCUMFLEX AND IS CORONARY ARTERY: Totally occluded in the proximal portion THE RIGHT CORONARY ARTERY:. Total occluded in the proximal portion The WELSH GRAFT TO THE LAD: This is patent at the proximal and distal anastomosis. The distal LAD is free of occlusive disease. THE VEIN GRAFT TO THE RCA: This is patent at the proximal and distal anastomosis. The distal RCA consistent of major the PLV branch and also mild to moderate caliber PDA branch. The ostium of the PDA branch has a 70% lesion which has been stable and chronic. There are collaterals from the right coronary artery to the circumflex system. THE VEIN GRAFT TO THE OM BRANCH: This is totally occluded at the ostium within the stent LEFT VENTRICULOGRAPHY: PERFORMED FINAL IMPRESSION: Total occlusion of the graft to the OM branch. There appears to be good collateral from the right to the circumflex. The WELSH to the LAD is patent. The RCA to the right coronary artery is patent with about 70-80% ostial stenosis of the PDA branch which has been chronic and stable PLAN:. Continue maximal medical therapy and risk factor modification PROGNOSIS: Fair
[2019-07-14] MEDS ORDERED: glipiZIDE 10 MG TAB PO STA (09:01)
[2019-07-14 11:44] LABS: Glucose,Whole Blood 130 mg/dL (75-99)
[2019-07-14 13:12] VITALS: RESP 18
[2019-07-14 15:02] VITALS: BP 113/72; PULSE 62
== END 2019-07-14 15:55 | disposition home or self-care (01) ==
LOC: CATHCVL 06:28
PROVIDERS: ATTEND Internal Medicine Cardiovascular Disease
DX: I25.119 Atherosclerotic heart disease of native coronary artery with unspecified angina pectoris (principal); I25.719 Atherosclerosis of autologous vein coronary artery bypass graft(s) with unspecified angina pectoris; I25.82 Chronic total occlusion of coronary artery; I10 Essential (primary) hypertension; I25.2 Old myocardial infarction; E11.51 Type 2 diabetes mellitus with diabetic peripheral angiopathy without gangrene; I70.203 Unspecified atherosclerosis of native arteries of extremities, bilateral legs; I25.9 Chronic ischemic heart disease, unspecified; E78.5 Hyperlipidemia, unspecified; Z72.0 Tobacco use; E78.00 Pure hypercholesterolemia, unspecified; Z95.1 Presence of aortocoronary bypass graft; Z95.5 Presence of coronary angioplasty implant and graft; Z79.899 Other long term (current) drug therapy; Z79.82 Long term (current) use of aspirin; Z79.84 Long term (current) use of oral hypoglycemic drugs; Z79.02 Long term (current) use of antithrombotics/antiplatelets; Z88.8 Allergy status to other drugs, medicaments and biological substances; Z82.49 Family history of ischemic heart disease and other diseases of the circulatory system
CPT/HCPCS: 93455; C1894; C1769 ×2; J2250; J2001; J3010; Q9967

== ENCOUNTER 2019-08-11 04:32 | Inpatient (IN) | payer MEDICARE ==
[2019-08-11] MEDS ORDERED: MORPHINE SULFATE 4 MG/ML SYRINGE IV STA (04:43)
[2019-08-11] MEDS ORDERED: NITROGLYCERIN OINT 1 INCH/GM PACKET TOPICAL STA (04:43)
[2019-08-11] MEDS ORDERED: HEPARIN SODIUM,PORCINE 5,000 UNIT/ML 1 ML VIAL IV STA (04:43)
[2019-08-11] MEDS ORDERED: ONDANSETRON 4 MG/2 ML VIAL IVP STA (04:43)
[2019-08-11] MEDS ORDERED: HEPARIN SOD,PORK IN 0.45% NACL 25,000 UNIT in 0.45% NACL 1 250ML.BAG IV SCH (04:45)
[2019-08-11 04:51] LABS: Basophils % (A) 0 %; Eosinophils # (A) 0.1 k/uL (0-0.7); Eosinophils % (A) 2 %; HCT 36.9 % (39.0-53.0); HGB 12.7 gm/dL (13.0-17.5); Lymphocytes # (A) 1.8 k/uL (1.0-4.8); Lymphocytes % (A) 27 %; MCHC 34.4 g/dL (31.0-37.0); MCV 96.1 fL (80.0-100.0); Mean Platelet Volume 7.7; Monocytes # (A) 0.3 k/uL (0-1.0); Monocytes % (A) 5 %; Neutrophils # (A) 4.2 k/uL (1.3-7.7); Neutrophils % (A) 63 %; Platelet Count 221 k/uL (150-450); RBC 3.84 m/uL (4.30-5.90); RDW 13.5 % (11.5-15.5); WBC 6.6 k/uL (3.8-10.6)
[2019-08-11] MEDS ORDERED: HYDROmorphone 1 MG/ML 1 ML SYRINGE IVP PRN (04:52)
[2019-08-11] MEDS ORDERED: NITROGLYCERIN-D5W PMX 50 MG in DEXTROSE/WATER 1 250ML.BAG IV ONE (04:53)
[2019-08-11 05:00] LABS: Albumin 4.1 g/dL (3.5-5.0); Calcium 9.6 mg/dL (8.4-10.2); Magnesium 1.7 mg/dL (1.6-2.3); Partial Thromboplastin Time 23.7 sec (22.0-30.0); Potassium 4.4 mmol/L (3.5-5.1); Prothrombin Time 10.6 sec (9.0-12.0); Total Bilirubin 0.5 mg/dL (0.2-1.3); Total Protein 7.1 g/dL (6.3-8.2)
[2019-08-11] MEDS ORDERED: LORazepam 2 MG/ML INJ IV PRN (05:26)
[2019-08-11] MEDS ORDERED: NALOXONE 0.4 MG/ML 1 ML VIAL IV PRN (05:26)
[2019-08-11] MEDS ORDERED: MORPHINE SULFATE 4 MG/ML SYRINGE IV PRN (05:26)
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
--- NOTE | 2019-08-11 05:48 | XR ---
EXAMINATION TYPE: XR chest 1V DATE OF EXAM: 08/11/2019 COMPARISON: 12/17/2017 HISTORY: Chest pain TECHNIQUE: FINDINGS: There is no heart failure nor confluent pneumonic infiltrate. There are sternal wires. Cost ophrenic angles are clear. There are chest leads. IMPRESSION: No active cardiopulmonary disease. No change.
[2019-08-11 06:17] LABS: Glucose,Whole Blood 151 mg/dL (75-99)
--- NOTE | 2019-08-11 08:35 | CONS ---
CONSULTATION Mr. Flynn is a 63-year-old male with known history of coronary artery disease, status post coronary artery bypass grafting, history of percutaneous revascularization with a prior history of WELSH to the LAD, saphenous vein graft to the RCA and saphenous vein graft to the intermediate with prior stenting of the diagonal graft in 2017 who has been followed on a regular basis by Dr. Dickerson. He was recently admitted because of symptoms of chest discomfort and abnormal myocardial perfusion imaging. He subsequently underwent cardiac catheterization on July 14 and at that time was found totally occluded saphenous vein graft to the intermediate and patent WELSH to LAD, patent saphenous vein graft to the right coronary artery, has a lesion at the ostium of the PDA that was noted in the past. His upper [place] LAD, right coronary artery and left circumflex are chronically occluded. He presented with symptoms of progressive dyspnea and fatigue as well as dizziness going on for the last week or so with symptoms of chest discomfort early this morning. Because of those symptoms, he came into the emergency room and subsequently admitted. On presentation, he was noted to be in second-degree AV block with 2-1 conduction. Reviewing his old records that has not been noted in the past and the medication have not been changed. The patient denies any peripheral edema. He has no dizziness or palpitation. He has no full syncope. No clear PND. No orthopnea. His coronary risk factors are remarkable for history of hypertension, hyperlipidemia, he is a diabetic, nonsmoker. MEDICATION: His medications at home include aspirin once a day, Plavix 75 mg daily, Lopid 600 mg twice a day, isosorbide mononitrate 120 mg daily, Zestril 10 mg daily, metoprolol tartrate 25 mg twice a day, omeprazole, and Glucotrol 10 mg daily. REVIEW OF SYSTEMS: Persistent had dyspnea on exertion. He has no recent wheezing or cough. GI SYSTEM: No recent GI bleeding. No peptic ulcer disease/ SYSTEM: No dysuria, hematuria. NERVOUS SYSTEM: No stroke or seizure. PHYSICAL EXAMINATION: He is a 63-year-old male, alert, oriented, in no apparent distress. Blood pressure 144/60 with a heart rate in the 40s. HEAD: Normocephalic. EYES: Sclerae nonicteric. NECK: Good upstroke, no bruits, no jugular venous distention. LUNGS: Clear to auscultation. HEART: Regular rate and rhythm,. S1-S2 with bradycardia systolic murmur no diastolic murmur no rub. ABDOMEN: Soft, nontender. Positive bowel sounds, no organomegaly. EXTREMITIES: No edema, intact distal pulses. LAB DATA: Revealed troponin of 0.030. NT proBNP 1609. BUN and creatinine of 18 and 1.23, potassium 4.4, hemoglobin 12.7. EKG revealed a sinus mechanism with 2-1 conduction and right bundle branch block and left anterior fascicular block. The right bundle branch block and left anterior fascicular block were noted in the past. IMPRESSION: 1. Second-degree AV block with 2-1 conduction. New compared with the tracing from July explaining the symptoms of progressive fatigue and dizziness. 2. History of coronary disease with chronically occluded saphenous vein graft to the ramus intermedius and occluded upper [place] vessel. 3. History of hypertension. 4. Hyperlipidemia. 5. Diabetes mellitus. RECOMMENDATION: I have discussed with the patient and his the finding. In view of his new 2-1 block and his symptoms and the lack of change in medication and the fact that beta josie is needed because of his chronic ischemic heart disease. I have recommend proceeding with permanent pacemaker implantation. The rationale behind the procedure was discussed with him. I have discussed this case with Dr. Dickerson who is his primary university internship and the plan to proceed with the procedure today. Thank you for this consult. We will follow with you. RAYO / CHRISTEN: [id number] /
[2019-08-11] MEDS ORDERED: SODIUM CHLORIDE 0.9% 500 ML 500 ML IV ONE (08:49)
[2019-08-11] MEDS ORDERED: CLOPIDOGREL 75 MG TAB PO SCH (09:00)
[2019-08-11] MEDS ORDERED: fentaNYL (PF) 50 MCG/ML 2 ML AMP ONE (09:06)
[2019-08-11] MEDS ORDERED: LIDOCAINE 1% INJ 10MG/ML (20 ML MDV) ONE (09:07)
[2019-08-11] MEDS ORDERED: fentaNYL (PF) 50 MCG/ML 2 ML AMP IV ONE (09:08)
[2019-08-11] MEDS ORDERED: LIDOCAINE 1% INJ 10MG/ML (20 ML MDV) SQ ONE ×3 (09:11→13:22)
[2019-08-11] MEDS ORDERED: MIDAZOLAM 2 MG/2 ML VIAL IV ONE (09:12)
[2019-08-11 09:50] LABS: Glucose,Whole Blood 103 mg/dL (75-99)
[2019-08-11] MEDS: SODIUM CHLORIDE 0.9% 1,000 ML IV SCH ×2 (10:34→14:40)
[2019-08-11] MEDS ORDERED: ceFAZolin 1,000 MG in SODIUM CHLORIDE 0.9% IRRIGATIO 250 ML IRRIGATION ONE (11:13)
[2019-08-11] MEDS ORDERED: IOPAMIDOL-250 50ML BTL IV ONE (12:00)
[2019-08-11] MEDS ORDERED: IV FLUID CONTINUATION 500 ML IV ONE (12:00)
--- NOTE | 2019-08-11 12:00 | ECHOF ---
Referral Reason:cad MEASUREMENTS -------- HEIGHT: 185.4 cm WEIGHT: 98.0 kg BP: 144/69 IVSd: 1.1 cm (0.6 - 1.1) LVIDd: 4.9 cm (3.9 - 5.3) LVPWd: 1.3 cm (0.6 - 1.1) IVSs: 1.3 cm LVIDs: 3.5 cm LVPWs: 1.4 cm LAESV Index (A-L): 22.94 ml/m MV EXCURSION: 20.757 mm (> 18.000) MV EF SLOPE: 85 mm/s (70 - 150) EPSS: 1.3 cm FINDINGS -------- Sinus rhythm. This was a technically difficult study with suboptimal views. S/P PM procedure The left ventricular size is normal. There is mild concentric left ventricular hypertrophy. Overa ll left ventricular systolic function is mild-moderately impaired with, an EF between 40 - 45 %. The RV was not well visualized. Normal LA size by volume 22+/-6 ml/m2. The right atrium was not well visualized. 5.0mg of Lumason was utilized for enhancement of images The aortic valve was not well visualized. There is no evidence of aortic regurgitation. There is no evidence of aortic stenosis. The mitral valve was not well visualized. The tricuspid valve was not well visualized. The pulmonic valve was not well visualized. IVC Not well visulized. There is no pericardial effusion. CONCLUSIONS -------- 1. Sinus rhythm. 2. This was a technically difficult study with suboptimal views. 3. S/P PM procedure 4. The left ventricular size is normal. 5. There is mild concentric left ventricular hypertrophy. 6. Overall left ventricular systolic function is mild-moderately impaired with, an EF between 40 - 45 %. 7. The RV was not well visualized. 8. Normal LA size by volume 22+/-6 ml/m2. 9. The right atrium was not well visualized. 10. 5.0mg of Lumason was utilized for enhancement of images 11. The aortic valve was not well visualized. 12. There is no evidence of aortic regurgitation. 13. There is no evidence of aortic stenosis. 14. The mitral valve was not well visualized. 15. The tricuspid valve was not well visualized. 16. The pulmonic valve was not well visualized. 17. IVC Not well visulized. 18. There is no pericardial effusion. MANAGER ER: Nova German RDCS
[2019-08-11] MEDS ORDERED: fentaNYL (PF) 50 MCG/ML 2 ML AMP IVP ONE (12:15)
[2019-08-11] MEDS ORDERED: MIDAZOLAM 2 MG/2 ML VIAL IVP ONE (12:15)
[2019-08-11 14:32] LABS: Glucose,Whole Blood 84 mg/dL (75-99)
[2019-08-11] MEDS: FENOFIBRATE 160 MG TAB PO SCH (14:40)
[2019-08-11] MEDS: glipiZIDE 5 MG TAB PO SCH ×2 (14:40→20:51)
[2019-08-11] MEDS: EZETIMIBE 10 MG TAB PO SCH (14:40)
[2019-08-11] MEDS: LISINOPRIL 10 MG TAB PO SCH (14:40)
[2019-08-11] MEDS: ISOSORBIDE MONONITRATE ER 60 MG TAB.ER.24H PO SCH ×2 (14:40→20:51)
[2019-08-11] MEDS: PANTOPRAZOLE 40 MG TABLET PO SCH (14:41)
[2019-08-11] MEDS: ALBUTEROL NEBULIZED 1.25 MG/3 ML INHALATION SCH ×2 (15:06→19:14)
[2019-08-11 17:04] LABS: Glucose,Whole Blood 124 mg/dL (75-99)
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
[2019-08-11] MEDS ORDERED: ALBUTEROL NEBULIZED 1.25 MG/3 ML INHALATION PRN (20:21)
[2019-08-11] MEDS ORDERED: ASPIRIN 81 MG PO SCH (21:00)
[2019-08-11] MEDS ORDERED: ALPRAZolam 0.25 MG TAB PO SCH (21:00)
[2019-08-12 02:02] VITALS: RESP 15
[2019-08-12] MEDS: ACETAMINOPHEN TAB 325 MG TAB PO PRN ×2 (04:17→12:56)
[2019-08-12] MEDS: SODIUM CHLORIDE 0.9% 1,000 ML IV SCH ×3 (04:19→04:20)
[2019-08-12 05:28] LABS: Basophils % (A) 0 %; Eosinophils # (A) 0.1 k/uL (0-0.7); Eosinophils % (A) 1 %; HCT 33.9 % (39.0-53.0); HGB 11.9 gm/dL (13.0-17.5); Lymphocytes # (A) 1.4 k/uL (1.0-4.8); Lymphocytes % (A) 16 %; MCH 33.6 pg (25.0-35.0); MCV 95.9 fL (80.0-100.0); Mean Platelet Volume 7.5; Monocytes # (A) 0.5 k/uL (0-1.0); Monocytes % (A) 6 %; Neutrophils # (A) 6.3 k/uL (1.3-7.7); Neutrophils % (A) 75 %; Platelet Count 192 k/uL (150-450); RBC 3.53 m/uL (4.30-5.90); RDW 13.4 % (11.5-15.5); WBC 8.4 k/uL (3.8-10.6)
[2019-08-12 05:41] LABS: Calcium 8.9 mg/dL (8.4-10.2)
[2019-08-12] MEDS: PANTOPRAZOLE 40 MG TABLET PO SCH (05:45)
[2019-08-12] MEDS: ALBUTEROL NEBULIZED 1.25 MG/3 ML INHALATION SCH ×3 (07:47→15:47)
--- NOTE | 2019-08-12 08:42 | PN ---
PROGRESS NOTE Mr. Flynn is a 63-year-old male who presented with symptoms of progressive fatigue and lack of energy with dyspnea and dizziness was noted to be in sinus mechanism with 2:1 conduction. He underwent permanent pacemaker implantation yesterday. He is feeling much better. His energy is better. His breathing is better. The procedure was done yesterday by Dr. Dickerson. He continues to be on aspirin once a day, Zetia 10 mg daily, fenofibrate 160 mg daily, glipizide 5 mg twice a day, isosorbide mononitrate 60 mg twice a day, lisinopril 10 mg daily. PHYSICAL EXAMINATION: Blood pressure 138/70 with the heart rate in the 70s. LUNGS: Clear. HEART: Regular rate and rhythm. S1, S2. No S3 with systolic murmur. No diastolic murmur. ABDOMEN: Soft, nontender. EXTREMITIES: No edema. Pacemaker site is clean. On the monitor, he has normal sensing and pacing of his pacemaker. LAB DATA: Lab data revealed a BUN and creatinine 16 and 1.03. Hemoglobin of 11.9. His chest x-ray showed no evidence of pneumothorax with normal positioning of his pacemaker wire. IMPRESSION: 1. Status post permanent pacemaker implantation. 2. History of coronary artery disease with occluded graft. 3. Hypertension. 4. Hyperlipidemia. 5. Diabetes mellitus. RECOMMENDATION: I will re-initiate treatment with the beta josie, continue the rest of his medical regimen. Will interrogate his device. If he is stable, we expect he should be able to be discharged home today and followed as an outpatient with Dr. Dickerson. MMODL / HEMALATHAN: [id number] /
--- NOTE | 2019-08-12 08:52 | XR ---
EXAMINATION TYPE: XR chest 2V DATE OF EXAM: 08/12/2019 COMPARISON: 08/11/2019 TECHNIQUE: PA and lateral views submitted. HISTORY: Lead placement check FINDINGS: The lungs are clear and there is no pneumothorax, pleural effusion, or focal pneumonia. Hyperinflat ion compatible COPD. Postsurgical changes. Cardiac double lead device seen with the proximal lead ove rlying the right atrium and distal lead overlying the right ventricle. Hypertrophic and degenerative change of the spine. There is mild prominence of the right paratracheal stripe which is stable from 12/17/2017 IMPRESSION: 1. No postprocedural complication. 2. COPD correlate for chronic interstitial lung disease. 3. Mild prominence the right paratracheal stripe can be associated with an aneurysm of the ascending aorta but appears stable from 2018 exam.
--- NOTE | 2019-08-12 08:55 | P.PCN ---
Date of Procedure: 08/12/19 Preoperative Diagnosis: High degree AV block with 2 to 1 conduction Postoperative Diagnosis: The same Procedure(s) Performed: Temporary pacemaker insertion Description of Procedure: This patient is admitted to the emergency room with high degree AV block with a 2 to one conduction and bradycardia and shortness of breath. Patient is advised to have a temporary pacemaker insertion before permanent pacemaker. Patient was brought to the lab in a fasting state. He was prepped and draped in the usual fashion. Patient was given IV sedation with 1 mg Versed and 50 of fentanyl. The right groin is infiltrated with lidocaine. Right femoral vein was entered with a Seldinger technique and a 6-Cameroonian sheath was left in place. A 5-[place]onian balloon tip temporary pacemaker wire was advanced under fluoroscopy into the right ventricular apical region. A satisfactory position was obtained. The sheath was sutured to the floor. The minimal pacing threshold was less than 0.5. Pacemaker is set at output up 3 and a rate of 50
[2019-08-12] MEDS ORDERED: METOPROLOL TARTRATE 25 MG TAB PO SCH (09:00)
--- NOTE | 2019-08-12 09:04 | P.PCN ---
Date of Procedure: 08/12/19 Preoperative Diagnosis: 2 to1 AV block Postoperative Diagnosis: The same Procedure(s) Performed: Permanent pacemaker implantation, axillary venography Description of Procedure: HISTORY: This is a 63-year-old gentleman with history of ischemic heart disease who is admitted through the emergency room with complaints of shortness of breath and fatigue and evidence of high degree AV block with 2 to one conduction. Patient is advised to have permanent pacemaker implantation. Patient already had a temporary pacemaker insertion. CONSENT:I have discussed the risks, benefits and alternative therapies for the above-mentioned procedure and for both sedation/analgesia as well as necessary blood product administration, if indicated, as they pertain to this patient. The patient has indicated understanding and acceptance of the risks and procedures discussed. PROCEDURE: Patient was brought to the lab in a fasting state. Patient was prepped and draped in the usual fashion. Patient was given IV sedation with fentanyl and Versed. The skin below the left clavicle was infiltrated with lidocaine. An incision was made parallel to deltopectoral groove was deepened until the pectoral fascia was exposed. A pocket was created by blunt dissection and cautery. Axillary venography was performed to delineate the course of the axillary vein. 2 sticks were performed into extrathoracic portion of the axillary vein and 2 sheaths were advanced over the guidewires and left in subclavian vein. Conscious Sedation: Versed 1 mg Fentanyl 50 g Duration 65 minutes LEADS: ATRIAL: This is manufactured by [employer]. Model number is 5076-52 and the serial number is [id number] VENTRICULAR:. This is manufactured by [employer]. Model number is 5076-58 and the serial number is [id number] THE DEVICE: This is manufactured by [employer]. Model number is [id number] and the serial number is [id number]. The ventricular lead is maneuvered l with help of a straight and curved stylets into left ventricular apical septal area. The lead was screwed in in satisfactory thresholds were obtained. However, the lead dislodgment before the closure of the pocket. The wire could not be advanced. Subsequently a second sheath was advanced with different venous stick. The lead was able to be advanced to the septum in the superior aspect and was screwed in. Satisfactory position was obtained and threshold measurements were made. The atrial lead was then maneuvered into the lateral wall of the right atrium.. And thresholds were obtained. THRESHOLDS: ATRIUM: The minimum patient threshold was 0.5 at pulse width of 0.4. The previous of 3.8 and the impedance was 570 ohms VENTRICLE: The minimal patient threshold was 0.75 at pulse width of 0.5. The R-wave was about 23 which is a patient already temporary pacemaker. The impedance is 608 ohms. The leads and pulse generator remained in the pocket after it was washed with antibiotics. Pocket was closed in the usual fashion. The fascia was closed with 2-0 Prolene ,the subcutaneous tissue was closed with 3-0 Prolene and the skin was closed with 4-0 Prolene. PROGRAMMING: MODE: DDDR RATE: 60 to 130OUTPUT: Atrium : 3.5 Ventricle: 3.5 V FINAL IMPRESSION: #1. Axillary venography #2. Successful implantation of dual- chamber pacemaker COMPLICATIONS: None PLAN:. Patient will be monitored on the telemetry unit. Prophylactic antibiotics will be continued. Chest x-ray in morning
[2019-08-12] MEDS: LISINOPRIL 10 MG TAB PO SCH (10:07)
[2019-08-12] MEDS: ISOSORBIDE MONONITRATE ER 60 MG TAB.ER.24H PO SCH (10:07)
[2019-08-12] MEDS: glipiZIDE 5 MG TAB PO SCH (10:09)
[2019-08-12] MEDS: FENOFIBRATE 160 MG TAB PO SCH (10:09)
[2019-08-12] MEDS: EZETIMIBE 10 MG TAB PO SCH (10:09)
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
[2019-08-12 11:58] LABS: Glucose,Whole Blood 88 mg/dL (75-99)
[2019-08-12 16:04] VITALS: BP 133/69; PULSE 62; TEMP 98
--- NOTE | 2019-08-12 23:19 | P.DS ---
Providers Date of admission: 08/11/19 05:28 Expected date of discharge: 08/12/19 Attending physician: Umer Huitron Consults: 08/11/19 05:26 Consult Physician Stat Consulting Provider: Godwin Bradford Consult Reason/Comments: ICU management Do you want consulting provider notified?: Already Contacted Consult Physician Stat Consulting Provider: Jose Guadarrama Consult Reason/Comments: Chest pain, EKG changes, Bradycardia, Known CAD Do you want consulting provider notified?: Already Contacted 08/12/19 10:28 Consult Physician Routine Consulting Provider: Godwin Bradford Consult Reason/Comments: copd/sob Do you want consulting provider notified?: Already Contacted Primary care physician: [facility] Course: Chief Complaint: DZ, shortness of breath History of presenting complaint: This is 63-year-old patient of Dr. Quinn.. Patient follows with counter hop Dr. Dickerson. Chronic stable medical conditions include COPD, diabetes, GERD,. Has a known history of coronary bypass. Had a cardiac catheterization recently. Found to some chronically occluded grafts. Patient recently recovered from a viral respiratory illness. Yesterday became short of breath dizziness lightheadedness slight pressure in the chest. Decided to come in. Was found to2: 1 heart block. Patient was taken down for a permanent pacemaker Today-doing well. Up and about. Seen by Dr. Gentile in Dr. Dickerson. Okay to be discharged. Consultation: Dr. Gentile from cardiology Dr. Dickerson place the pacemaker Physical examination: VITAL SIGNS: 98, 62, 15, 133/69, 98% room air GENERAL: BMI 28.5, laying in bed awake. EYES: Pupils equal. Conjunctiva normal. HEENT: External appearance of nose and ears normal, oral cavity grossly normal. NECK: JVD not raised; masses not palpable. HEART: First and second heart sounds are normal; no edema. LUNGS: Respiratory rate normal; decreased breath sound. CHEST wall: Dressing over the pacemaker site left arm in a sling ABDOMEN: Soft, nontender, liver spleen not palpable, no masses palpable. PSYCH: Alert and oriented x3; mood and affect normal. INVESTIGATIONS, reviewed in the clinical context: White count 8.4 hemoglobin 11.9 creatinine 1.03 Previous testing White count 6.6 hemoglobin 12.7 platelets 221 potassium 4.4.18 creatinine 1.23 Troponin I 0.030 proBNP 1690 TSH 0.7 EKG tracing personally reviewed by me-2:1 block Chest x-ray film-personally reviewed by me-borderline cardiomegaly Assessment: -2:1 heart block symptomatic, now with a permanent pacemaker -Coronary artery disease with prior history of coronary bypass, and blocked grafts -COPD in an ex-smoker -Diabetes mellitus type 2 -GERD -Chronic congestive heart failure from systolic dysfunction EF 40-45% from co ronary artery disease disposition: Home Patient Condition at Discharge: Stable Plan - Discharge Summary Discharge Rx Participant: No New Discharge Prescriptions: New Umeclidinium Brm/Vilanterol Tr [Anoro Ellipta 62.5-25 Mcg INH] 1 puff INHALATION DAILY 30 Days #1 device Ezetimibe [Zetia] 10 mg PO DAILY #30 tab Continue Omeprazole [PriLOSEC] 20 mg PO DAILY Fish Oil/Dha/Epa [Fish Oil 1,200 mg Fish Oil] 1 cap PO BID Albuterol Sulfate [Proair Hfa] 2 puff INHALATION RT-Q4H PRN PRN Reason: Shortness Of Breath Multivitamin [Men's Multi-Vitamin] 1 tab PO DAILY Lisinopril [Zestril] 10 mg PO DAILY Gemfibrozil [Lopid] 600 mg PO BID Ubidecarenone [Co Q-10] 100 mg PO DAILY Aspirin 81 mg PO HS Clopidogrel [Plavix] 75 mg PO DAILY Metoprolol Tartrate [Lopressor] 25 mg PO BID glipiZIDE XL [Glucotrol XL] 10 mg PO DAILY Isosorbide Mononitrate ER [Imdur] 60 mg PO BID Nitroglycerin Sl Tabs [Nitrostat] 0.4 mg SUBLINGUAL Q5M PRN tab PRN Reason: Chest Pain ALPRAZolam [Xanax] 0.25 mg PO BID PRN PRN Reason: Anxiety Discharge Medication List Fish Oil/Dha/Epa [Fish Oil 1,200 mg Fish Oil] 1 cap PO BID 10/07/13 [History] Omeprazole [PriLOSEC] 20 mg PO DAILY 10/07/13 [History] Albuterol Sulfate [Proair Hfa] 2 puff INHALATION RT-Q4H PRN 03/01/15 [History] Aspirin 81 mg PO HS 03/01/15 [History] Gemfibrozil [Lopid] 600 mg PO BID 03/01/15 [History] Lisinopril [Zestril] 10 mg PO DAILY 03/01/15 [History] Multivitamin [Men's Multi-Vitamin] 1 tab PO DAILY 03/01/15 [History] Ubidecarenone [Co Q-10] 100 mg PO DAILY 03/01/15 [History] Clopidogrel [Plavix] 75 mg PO DAILY 06/20/16 [History] Metoprolol Tartrate [Lopressor] 25 mg PO BID 02/13/17 [History] glipiZIDE XL [Glucotrol XL] 10 mg PO DAILY 07/14/17 [History] Isosorbide Mononitrate ER [Imdur] 60 mg PO BID 12/17/17 [History] Nitroglycerin Sl Tabs [Nitrostat] 0.4 mg SUBLINGUAL Q5M PRN tab 07/14/19 [Rx] ALPRAZolam [Xanax] 0.25 mg PO BID PRN 08/11/19 [History] Ezetimibe [Zetia] 10 mg PO DAILY #30 tab 08/12/19 [Rx] Umeclidinium Brm/Vilanterol Tr [Anoro Ellipta 62.5-25 Mcg INH] 1 puff INHALATION DAILY 30 Days #1 device 08/12/19 [Rx] Follow up Appointment(s)/Referral(s): cardiology, [Other] - 08/19/19 3:00 pm (Dr. Dickerson) Sammy Quinn MD [Primary Care Provider] - 1-2 days (Office closed- please call for appointment) Godwin Bradford MD [STAFF PHYSICIAN] - 09/01/19 2:00 pm [facility] Visiting Nurse, [NON-STAFF] - 1-2 Days Patient Instructions/Handouts: COPD (Chronic Obstructive Pulmonary Disease) (DC), Pacemaker (DC), Pacemaker (GEN) Activity/Diet/Wound Care/Special Instructions: pacemaker follow up and dc instructions
== END 2019-08-12 16:06 | disposition home health service (06) | DRG 243 ==
LOC: EC 04:32 → 2SICU 05:28
PROVIDERS: ADMIT Hospitalist; ATTEND Hospitalist
PROC: 5A1223Z Performance of Cardiac Pacing, Continuous (ICD-10-PCS; 2019-08-11)
PROC: 02H63JZ Insertion of Pacemaker Lead into Right Atrium, Percutaneous Approach (ICD-10-PCS; principal; 2019-08-12)
PROC: 02HK3JZ Insertion of Pacemaker Lead into Right Ventricle, Percutaneous Approach (ICD-10-PCS; principal; 2019-08-12)
PROC: 0JH606Z Insertion of Pacemaker, Dual Chamber into Chest Subcutaneous Tissue and Fascia, Open Approach (ICD-10-PCS; principal; 2019-08-12)
DX: I44.1 Atrioventricular block, second degree (principal); I25.810 Atherosclerosis of coronary artery bypass graft(s) without angina pectoris; I50.22 Chronic systolic (congestive) heart failure; I11.0 Hypertensive heart disease with heart failure; I25.82 Chronic total occlusion of coronary artery; E11.9 Type 2 diabetes mellitus without complications; E78.5 Hyperlipidemia, unspecified; R00.1 Bradycardia, unspecified; J44.9 Chronic obstructive pulmonary disease, unspecified; K21.9 Gastro-esophageal reflux disease without esophagitis; I25.2 Old myocardial infarction; I25.10 Atherosclerotic heart disease of native coronary artery without angina pectoris; M20.002 Unspecified deformity of left finger(s); E66.9 Obesity, unspecified; Z68.28 Body mass index [BMI] 28.0-28.9, adult; Z79.82 Long term (current) use of aspirin; Z79.02 Long term (current) use of antithrombotics/antiplatelets; Z79.84 Long term (current) use of oral hypoglycemic drugs; Z79.899 Other long term (current) drug therapy; Z95.1 Presence of aortocoronary bypass graft; Z95.5 Presence of coronary angioplasty implant and graft; Z87.891 Personal history of nicotine dependence; Z98.42 Cataract extraction status, left eye; Z98.41 Cataract extraction status, right eye; Z98.890 Other specified postprocedural states; Z88.3 Allergy status to other anti-infective agents; Z88.2 Allergy status to sulfonamides; Z88.8 Allergy status to other drugs, medicaments and biological substances; Z82.49 Family history of ischemic heart disease and other diseases of the circulatory system; Z80.1 Family history of malignant neoplasm of trachea, bronchus and lung; Z80.8 Family history of malignant neoplasm of other organs or systems
CPT/HCPCS: 33208; 33210; 36415; 71045; 71046; 80048; 80053; 83735; 83880; 84443; 84484; 85025; 85610; 85730; 93005; 93306; 94640; 96365; 96375; 96376; 99291

== ENCOUNTER 2019-08-25 22:41 | Observation (INO) | payer MEDICARE ==
[2019-08-25 23:09] LABS: Basophils # (A) 0.1 k/uL (0-0.2); Basophils % (A) 1 %; Eosinophils # (A) 0.2 k/uL (0-0.7); Eosinophils % (A) 3 %; HCT 40.3 % (39.0-53.0); HGB 13.9 gm/dL (13.0-17.5); Lymphocytes # (A) 2.1 k/uL (1.0-4.8); Lymphocytes % (A) 28 %; MCHC 34.6 g/dL (31.0-37.0); MCV 95.4 fL (80.0-100.0); Mean Platelet Volume 6.7; Monocytes # (A) 0.5 k/uL (0-1.0); Monocytes % (A) 7 %; Neutrophils # (A) 4.6 k/uL (1.3-7.7); Neutrophils % (A) 60 %; Platelet Count 287 k/uL (150-450); RBC 4.22 m/uL (4.30-5.90); RDW 12.9 % (11.5-15.5); WBC 7.6 k/uL (3.8-10.6)
--- NOTE | 2019-08-25 23:15 | XR ---
EXAMINATION TYPE: XR chest 2V DATE OF EXAM: 08/25/2019 COMPARISON: 08/12/2019 HISTORY: Chest pain TECHNIQUE: FINDINGS: There is no heart failure nor confluent pneumonic infiltrate. Costophrenic angles are clear . There is spurring in the thoracic spine. There is left axillary pacemaker. Thoracic aorta is athero matous. There is no pleural effusion. IMPRESSION: No active cardiopulmonary disease. Normal heart. No change. Atheromatous aorta.
[2019-08-25 23:18] LABS: ALT 39 U/L (4-49); AST 45 U/L (17-59); African American GFR (CKD) >90 (>60 ml/min/1.73 sqM); Albumin 4.4 g/dL (3.5-5.0); Alkaline Phosphatase 64 U/L (38-126); Anion Gap 8 mmol/L; Blood Urea Nitrogen 19 mg/dL (9-20); Calcium 9.6 mg/dL (8.4-10.2); Carbon Dioxide 25 mmol/L (22-30); Chloride 104 mmol/L (98-107); Glucose 151 mg/dL (74-99); Magnesium 1.7 mg/dL (1.6-2.3); Non-African American GFR(CKD) 82 (>60 ml/min/1.73 sqM); Sodium 137 mmol/L (137-145); Total Bilirubin 0.6 mg/dL (0.2-1.3); Total Protein 7.6 g/dL (6.3-8.2)
[2019-08-25 23:20] LABS: Potassium 4.8 mmol/L (3.5-5.1)
[2019-08-25 23:29] LABS: Partial Thromboplastin Time 23.8 sec (22.0-30.0); Prothrombin Time 10.3 sec (9.0-12.0)
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
[2019-08-25] MEDS ORDERED: NITROGLYCERIN SL TABS 0.4 MG TAB SUBLINGUAL PRN (23:54)
[2019-08-25] MEDS ORDERED: MORPHINE SULFATE 4 MG/ML SYRINGE IVP PRN (23:56)
[2019-08-25] MEDS ORDERED: ALPRAZolam 0.25 MG TAB PO PRN (23:56)
[2019-08-25] MEDS ORDERED: ALBUTEROL NEBULIZED 2.5 MG/3 ML INHALATION PRN (23:56)
[2019-08-26 01:03] VITALS: RESP 18
[2019-08-26 06:59] LABS: Glucose,Whole Blood 138 mg/dL (75-99)
[2019-08-26] MEDS: IPRATROPIUM 0.5 MG/2.5 ML NEBU INHALATION SCH ×3 (08:20→15:37)
[2019-08-26] MEDS ORDERED: RANOLAZINE 500 MG TAB.ER.12H PO SCH (09:00)
[2019-08-26] MEDS ORDERED: ASPIRIN 325 MG TAB PO SCH (09:00)
[2019-08-26] MEDS ORDERED: FENOFIBRATE 160 MG TAB PO SCH (09:00)
[2019-08-26] MEDS ORDERED: CLOPIDOGREL 75 MG TAB PO SCH (09:00)
[2019-08-26] MEDS ORDERED: METOPROLOL TARTRATE 50 MG TAB PO SCH (09:00)
[2019-08-26] MEDS ORDERED: METOPROLOL TARTRATE 25 MG TAB PO SCH (09:00)
[2019-08-26] MEDS ORDERED: FORMOTEROL FUMARATE 20 MCG/2 ML NEBU INHALATION SCH (09:00)
[2019-08-26] MEDS ORDERED: ASPIRIN 81 MG PO SCH (09:00)
[2019-08-26] MEDS ORDERED: EZETIMIBE 10 MG TAB PO SCH (09:00)
[2019-08-26] MEDS ORDERED: LISINOPRIL 10 MG TAB PO SCH (09:00)
[2019-08-26] MEDS ORDERED: glipiZIDE 5 MG TAB PO SCH (09:00)
[2019-08-26] MEDS ORDERED: ISOSORBIDE MONONITRATE ER 60 MG TAB.ER.24H PO SCH (09:00)
[2019-08-26] MEDS ORDERED: PANTOPRAZOLE 40 MG TABLET PO SCH (09:45)
[2019-08-26] MEDS ORDERED: MULTIVITAMINS, THERA 1 EACH TAB PO SCH (09:45)
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
[2019-08-26 11:17] VITALS: BP 135/77; TEMP 97.9
[2019-08-26 11:20] VITALS: PULSE 80
[2019-08-26 11:35] LABS: Glucose,Whole Blood 161 mg/dL (75-99)
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
--- NOTE | 2019-08-26 20:28 | P.DS ---
Providers Date of admission: 08/25/19 23:58 Expected date of discharge: 08/26/19 Attending physician: Umer Huitron Consults: 08/25/19 23:54 Consult Physician Urgent Consulting Provider: Paola Dickerson Consult Reason/Comments: chest pain, HTN, known CAD Do you want consulting provider notified?: Yes, Notify in am Primary care physician: Sammy Quinn [facility] Course: Chief Complaint: Chest pain History of presenting complaint: This is 63-year-old patient of Dr. Quinn.. Patient follows with book reviewer Dr. Dickerson. Chronic stable medical conditions include COPD, diabetes, GERD, CAD-coronary bypass. Not long ago cardiac catheterization recently. Found to some chronically occluded grafts. Was in the hospital from August 10 through August 11. Found to have second degree heart block. Had a permanent pacemaker placed. Patient yesterday started WITH left-sided chest pain precordial area. Feels like a pressure and described as a heart. Pain lasted for about 5 minutes. He took a nitroglycerin with some help. The pain did not radiate no perspiration or dizziness no lightheadedness. Had a similar episode about 9 PM. Last about 5 minutes. Decided to come in for the same. Otherwise patient has been doing well. No fever no chills. Shortness of breath. Seen by cardiology. Ranexa was added. Beta josie was increased. No further episodes. Diagnoses-unstable angina. Cleared by cardiology to be discharged Consultation: Dr. High from cardiology Physical examination: VITAL SIGNS: 97.9, 66, 18, blood pressure 135/77, 95% on room air GENERAL: BMI 29.1, laying in bed, comfortable EYES: Pupils equal. Conjunctiva normal. HEENT: External appearance of nose and ears normal, oral cavity grossly normal. NECK: JVD not raised; masses not palpable. HEART: First and second heart sounds are normal; no edema. LUNGS: Respiratory rate normal; decreased breath sound. CHEST wall: pacemaker ABDOMEN: Soft, nontender, liver spleen not palpable, no masses palpable. PSYCH: Alert and oriented x3; mood and affect normal. INVESTIGATIONS, reviewed in the clinical context: White count 7.6 hemoglobin 13.9 platelets 287 potassium 4.8 creatinine 0.98 Troponin I 0.014, 0.116, Assessment: -Unstable angina. POA -Coronary artery disease with prior history of coronary bypass, and blocked grafts -COPD in an ex-smoker -Diabetes mellitus type 2 -GERD -Chronic congestive heart failure from systolic dysfunction EF 40-45% from coronary artery disease -Permanent pacemaker Disposition: Home Patient Condition at Discharge: Stable Plan - Discharge Summary Discharge Rx Participant: Yes New Discharge Prescriptions: New Ranolazine [Ranexa] 500 mg PO Q12HR #60 tab.er.12h Metoprolol Tartrate [Lopressor] 50 mg PO BID #60 tab Ezetimibe [Zetia] 10 mg PO DAILY tab Continue Omeprazole [PriLOSEC] 20 mg PO DAILY Fish Oil/Dha/Epa [Fish Oil 1,200 mg Fish Oil] 1 cap PO BID Albuterol Sulfate [Proair Hfa] 2 puff INHALATION RT-Q4H PRN PRN Reason: Shortness Of Breath Multivitamin [Men's Multi-Vitamin] 1 tab PO DAILY Lisinopril [Zestril] 10 mg PO DAILY Gemfibrozil [Lopid] 600 mg PO BID Ubidecarenone [Co Q-10] 100 mg PO DAILY Aspirin 81 mg PO HS Clopidogrel [Plavix] 75 mg PO DAILY glipiZIDE XL [Glucotrol XL] 10 mg PO DAILY Isosorbide Mononitrate ER [Imdur] 60 mg PO BID Nitroglycerin Sl Tabs [Nitrostat] 0.4 mg SUBLINGUAL Q5M PRN tab PRN Reason: Chest Pain ALPRAZolam [Xanax] 0.25 mg PO BID PRN PRN Reason: Anxiety Umeclidinium Brm/Vilanterol Tr [Anoro Ellipta 62.5-25 Mcg INH] 1 puff INHALATION RT-DAILY Albuterol Nebulized [Ventolin Nebulized] 2.5 mg INHALATION RT-Q4H PRN PRN Reason: Shortness Of Breath Discontinued Metoprolol Tartrate [Lopressor] 25 mg PO BID Discharge Medication List Fish Oil/Dha/Epa [Fish Oil 1,200 mg Fish Oil] 1 cap PO BID 10/07/13 [History] Omeprazole [PriLOSEC] 20 mg PO DAILY 10/07/13 [History] Albuterol Sulfate [Proair Hfa] 2 puff INHALATION RT-Q4H PRN 03/01/15 [History] Aspirin 81 mg PO HS 03/01/15 [History] Gemfibrozil [Lopid] 600 mg PO BID 03/01/15 [History] Lisinopril [Zestril] 10 mg PO DAILY 03/01/15 [History] Multivitamin [Men's Multi-Vitamin] 1 tab PO DAILY 03/01/15 [History] Ubidecarenone [Co Q-10] 100 mg PO DAILY 03/01/15 [History] Clopidogrel [Plavix] 75 mg PO DAILY 06/20/16 [History] glipiZIDE XL [Glucotrol XL] 10 mg PO DAILY 07/14/17 [History] Isosorbide Mononitrate ER [Imdur] 60 mg PO BID 12/17/17 [History] Nitroglycerin Sl Tabs [Nitrostat] 0.4 mg SUBLINGUAL Q5M PRN tab 07/14/19 [Rx] ALPRAZolam [Xanax] 0.25 mg PO BID PRN 08/11/19 [History] Albuterol Nebulized [Ventolin Nebulized] 2.5 mg INHALATION RT-Q4H PRN 08/26/19 [History] Ezetimibe [Zetia] 10 mg PO DAILY tab 08/26/19 [Rx] Metoprolol Tartrate [Lopressor] 50 mg PO BID #60 tab 08/26/19 [Rx] Ranolazine [Ranexa] 500 mg PO Q12HR #60 tab.er.12h 08/26/19 [Rx] Umeclidinium Brm/Vilanterol Tr [Anoro Ellipta 62.5-25 Mcg INH] 1 puff INHALATION RT-DAILY 08/26/19 [History] Follow up Appointment(s)/Referral(s): Sammy Quinn MD [Primary Care Provider] - 1-2 days Paola Dickerson MD [STAFF PHYSICIAN] - 2 Weeks Discharge Disposition: HOME SELF-CARE
== END 2019-08-26 15:44 | disposition home or self-care (01) ==
LOC: EC 22:41 → 1SOBS 23:58
PROVIDERS: ADMIT Hospitalist; ATTEND Hospitalist
DX: I25.810 Atherosclerosis of coronary artery bypass graft(s) without angina pectoris (principal); I11.0 Hypertensive heart disease with heart failure; I25.110 Atherosclerotic heart disease of native coronary artery with unstable angina pectoris; I25.82 Chronic total occlusion of coronary artery; J44.9 Chronic obstructive pulmonary disease, unspecified; K21.9 Gastro-esophageal reflux disease without esophagitis; E11.9 Type 2 diabetes mellitus without complications; I50.22 Chronic systolic (congestive) heart failure; Z95.0 Presence of cardiac pacemaker; E78.5 Hyperlipidemia, unspecified; I25.10 Atherosclerotic heart disease of native coronary artery without angina pectoris; I25.2 Old myocardial infarction; I25.5 Ischemic cardiomyopathy; I44.1 Atrioventricular block, second degree; H26.9 Unspecified cataract; Z79.899 Other long term (current) drug therapy; Z79.82 Long term (current) use of aspirin; Z79.02 Long term (current) use of antithrombotics/antiplatelets; Z79.84 Long term (current) use of oral hypoglycemic drugs; Z79.51 Long term (current) use of inhaled steroids; Z87.891 Personal history of nicotine dependence; Z88.1 Allergy status to other antibiotic agents; Z88.2 Allergy status to sulfonamides; Z91.09 Other allergy status, other than to drugs and biological substances; Z82.49 Family history of ischemic heart disease and other diseases of the circulatory system; Z80.1 Family history of malignant neoplasm of trachea, bronchus and lung
CPT/HCPCS: 36415; 94640 ×2; 93005; 83880; 80053; 83735; 84484 ×2; 85025; 85610; 85730; 71046; G0378 ×2; 99285

== ENCOUNTER 2020-06-19 07:25 | Day surgery (SDC) | payer MEDICARE ==
[2020-06-13 15:23] VITALS: BMI 29.5
[~2020-06-19 07:25] MED LIST changes: +ASPIRIN 325 MG TAB PO STA; +ATORVASTATIN 80 MG TAB PO STA
[2020-06-19 07:52] VITALS: TEMP 97.7
[2020-06-19 07:52] LABS: Glucose,Whole Blood 162 mg/dL (75-99)
[2020-06-19 08:00] LABS: Basophils # (A) 0.1 k/uL (0-0.2); Basophils % (A) 1 %; Eosinophils # (A) 0.3 k/uL (0-0.7); Eosinophils % (A) 3 %; HCT 42.4 % (39.0-53.0); HGB 15.3 gm/dL (13.0-17.5); Lymphocytes # (A) 3.5 k/uL (1.0-4.8); Lymphocytes % (A) 34 %; MCH 34.5 pg (25.0-35.0); MCHC 36.1 g/dL (31.0-37.0); MCV 95.7 fL (80.0-100.0); Mean Platelet Volume 6.6; Monocytes # (A) 0.6 k/uL (0-1.0); Monocytes % (A) 6 %; Neutrophils # (A) 5.7 k/uL (1.3-7.7); Neutrophils % (A) 55 %; Platelet Count 293 k/uL (150-450); RBC 4.43 m/uL (4.30-5.90); RDW 11.8 % (11.5-15.5); WBC 10.4 k/uL (3.8-10.6)
[2020-06-19 08:25] LABS: Calcium 9.6 mg/dL (8.4-10.2); Potassium 4.2 mmol/L (3.5-5.1)
[2020-06-19] MEDS: MIDAZOLAM 2 MG/2 ML VIAL IV ONE ×2 (08:45→08:46)
[2020-06-19] MEDS ORDERED: LIDOCAINE 1% INJ 10MG/ML (20 ML MDV) SQ ONE (08:45)
[2020-06-19] MEDS ORDERED: fentaNYL (PF) 50 MCG/ML 2 ML AMP IV ONE (08:45)
[2020-06-19] MEDS ORDERED: IOPAMIDOL-370 125ML BTL INJ ONE (09:08)
[2020-06-19] MEDS ORDERED: RX INFO: IV CONTRAST WAS GIVEN 1 EACH MISC MISCELLANE PRN (09:12)
[2020-06-19] MEDS ORDERED: SODIUM CHLORIDE 0.9% 1,000 ML IV SCH (09:15)
--- NOTE | 2020-06-19 09:28 | P.CARDCATH ---
Date of Procedure: 06/19/20 Preoperative Diagnosis: ischemic heart disease, ischemic cardiac myopathy and sustained ventricular tachycardia Postoperative Diagnosis: stable coronary artery disease compared to previous study Procedure(s) Performed: left heart catheterization with selective injection of the [place] arteries and WELSH to the LAD and the graft to the RCA and circumflex Description of Procedure: HISTORY: This is a 64-year-old gentleman with history of ischemic heart disease with previous bypass surgery and multiple stent placement with ischemic cardiomyopathy with ejection fraction of 40-45%. Patient also had a permanent pacemaker implantation. Patient was recently found a sustained ventricular tachycardia associated with symptoms but self terminating. In view of V. tach, patient is advised to have cardiac catheterization to rule out any progression of ischemic heart disease. If not, patient will be constricted for defibrillator implantation. CONSENT:I have discussed the risks, benefits and alternative therapies for the above-mentioned procedure and for both sedation/analgesia as well as necessary blood product administration, if indicated, as they pertain to this patient. The patient has indicated understanding and acceptance of the risks and procedures discussed. PROCEDURE: Patient was brought to the lab in a fasting state. Patient was given some IV sedation. The right groin is infiltrated with lidocaine and right femoral artery was entered using Seldinger technique. A 6-Finnish catheter was left in place and selective coronary arteriography was performed. Patient tolerated the procedure well. Manual compression was applied for hemostasis. No immediate complications were noted and patient was transferred to [facility] in a stable condition Conscious Sedation: Versed 2mg Fentanyl 50 g Duration 22minutes HEMODYNAMICS: The aortic pressure was about 120/70. The left ventricular end- diastolic pressure was about 12-15 There was no gradient across the aortic valve SELECTIVE CORONARY ARTERIOGRAPHY: LEFT MAIN: Normal in length and free of any significant occlusive disease THE LEFT ANTERIOR DESCENDING CORONARY ARTERY: This has a significant disease in the midportion after the diagonal branch with complaints of low from the WELSH graft.The diagonal branch is free of occlusive disease THE LEFT CIRCUMFLEX AND IS CORONARY ARTERY: The circumflex coronary artery is totally blocked after irregular segment.There is collaterals flow to the circumflex system THE RIGHT CORONARY ARTERY: This is totally occluded in the proximal portion. The vein graft to the circumflex: This is a multiple stents that is totally occluded at the ostium The vein graft to the right coronary artery: This is patent at the proximal and distal anastomosis and throat its body. There is 80- 90% stenosis of the PDA branch at the ostium which is chronic and stable. The WELSH graft to the LAD: This is patent throat its length and also at rest anastomosis. There is competent to flow in the distal LAD LEFT VENTRICULOGRAPHY: Not performed FINAL IMPRESSION: stable coronary artery disease with patent WELSH graft to the LAD and graft to the RCA The rest of the coronary anatomy is as before PLAN:Maximum medical therapy.patient will be considered for AICD implantation because of V. tach PROGNOSIS: Guarded
[2020-06-19 13:58] VITALS: PULSE 58; RESP 16
[2020-06-19 17:11] VITALS: BP 123/62
== END 2020-06-19 15:55 | disposition home or self-care (01) ==
LOC: CATHCVL 07:25
PROVIDERS: ATTEND Internal Medicine Cardiovascular Disease
DX: I25.10 Atherosclerotic heart disease of native coronary artery without angina pectoris (principal); I25.82 Chronic total occlusion of coronary artery; T82.598A Other mechanical complication of other cardiac and vascular devices and implants, initial encounter; I25.5 Ischemic cardiomyopathy; I47.2 Ventricular tachycardia; E78.00 Pure hypercholesterolemia, unspecified; I10 Essential (primary) hypertension; I44.2 Atrioventricular block, complete; I25.9 Chronic ischemic heart disease, unspecified; E11.9 Type 2 diabetes mellitus without complications; E78.5 Hyperlipidemia, unspecified; I25.2 Old myocardial infarction; I70.203 Unspecified atherosclerosis of native arteries of extremities, bilateral legs; E66.9 Obesity, unspecified; Z95.1 Presence of aortocoronary bypass graft; Z95.5 Presence of coronary angioplasty implant and graft; Z82.49 Family history of ischemic heart disease and other diseases of the circulatory system; Z72.0 Tobacco use; Z79.899 Other long term (current) drug therapy; Z79.82 Long term (current) use of aspirin; Z79.84 Long term (current) use of oral hypoglycemic drugs; Z88.8 Allergy status to other drugs, medicaments and biological substances; Z68.29 Body mass index [BMI] 29.0-29.9, adult; Z95.0 Presence of cardiac pacemaker
CPT/HCPCS: 93459; 80048; 85025; C1769 ×5; C1894; J2250; J2001; J3010; Q9967

== ENCOUNTER 2020-07-13 08:42 | Day surgery (SDC) | payer MEDICARE ==
[2020-07-11 15:36] VITALS: BMI 29.1
[~2020-07-13 08:42] MED LIST changes: -ALPRAZolam 0.25 MG TAB PO PRN; -ALPRAZolam 0.5 MG TAB PO PRN; -ASPIRIN 325 MG TAB PO STA; -ATORVASTATIN 80 MG TAB PO STA; +HYDROmorphone 0.5 MG/0.5 ML SYRINGE IVP PRN; +MIDAZOLAM 2 MG/2 ML VIAL IV PRN; -NITROGLYCERIN SL TABS 0.4 MG TAB SUBLINGUAL PRN; -SODIUM CHLORIDE 0.9% 1,000 ML in EMPTY BAG 1 BAG IV ONE; +ceFAZolin 1 GM in SODIUM CHLORIDE 0.9% 250 ML IRRIGATION PRN
[2020-07-13] MEDS: SODIUM CHLORIDE 0.9% 1,000 ML IV SCH ×2 (09:06→14:10)
[2020-07-13 09:09] LABS: Glucose,Whole Blood 207 mg/dL (75-99)
[2020-07-13] MEDS ORDERED: INSULIN ASPART (NovoLOG) 100 UNIT/ML VIAL SQ ONE (09:36)
[2020-07-13] MEDS ORDERED: LIDOCAINE 1% INJ 10MG/ML (20 ML MDV) ONE ×2 (10:54→11:31)
[2020-07-13] MEDS ORDERED: MIDAZOLAM 2 MG/2 ML VIAL ONE (11:10)
[2020-07-13] MEDS ORDERED: fentaNYL (PF) 50 MCG/ML 2 ML AMP ONE (11:10)
[2020-07-13] MEDS ORDERED: PROPOFOL 10 MG/ML 20 ML VIAL IV ONE (11:10)
[2020-07-13] MEDS ORDERED: IOPAMIDOL-250 50ML BTL IV ONE (11:29)
[2020-07-13] MEDS ORDERED: LIDOCAINE 1% INJ 10MG/ML (20 ML MDV) SQ ONE ×3 (11:38→11:48)
[2020-07-13] MEDS ORDERED: ACETAMINOPHEN TAB 325 MG TAB PO PRN (12:47)
[2020-07-13] MEDS ORDERED: ALBUTEROL NEBULIZED 2.5 MG/3 ML INHALATION PRN (12:48)
[2020-07-13] MEDS ORDERED: NITROGLYCERIN SL TABS 0.4 MG TAB SUBLINGUAL PRN (12:48)
[2020-07-13] MEDS ORDERED: ALPRAZolam 0.25 MG TAB PO PRN (12:48)
[2020-07-13] MEDS: LACTATED RINGERS 1,000 ML IV SCH (14:10)
[2020-07-13] MEDS: SYMBICORT 160-4.5 MCG INHALER INHALATION SCH (19:33)
[2020-07-13 20:03] LABS: Glucose,Whole Blood 207 mg/dL (75-99)
[2020-07-13] MEDS: METOPROLOL TARTRATE 25 MG TAB PO SCH (20:58)
[2020-07-13] MEDS: ISOSORBIDE MONONITRATE ER 60 MG TAB.ER.24H PO SCH (20:59)
[2020-07-13] MEDS ORDERED: NON FORMULARY DRUG (Fish Oil/Dha/Epa [Fish Oil 1,200 Mg Fish Oil] 1 EACH Capsule) PO SCH (21:00)
[2020-07-13] MEDS ORDERED: FENOFIBRATE 160 MG TAB PO SCH (21:00)
[2020-07-13] MEDS: RANOLAZINE 500 MG TAB.ER.12H PO SCH (21:02)
[2020-07-14] MEDS: ALBUTEROL HFA INHALER INHALATION PRN ×2 (01:47→07:27)
[2020-07-14] MEDS: SODIUM CHLORIDE 0.9% 1,000 ML IV SCH ×3 (04:12→05:22)
[2020-07-14] MEDS: LACTATED RINGERS 1,000 ML IV SCH (06:22)
[2020-07-14 07:25] LABS: Glucose,Whole Blood 163 mg/dL (75-99)
[2020-07-14 07:26] VITALS: BP 150/83; PULSE 57; RESP 18; TEMP 98
[2020-07-14] MEDS: SYMBICORT 160-4.5 MCG INHALER INHALATION SCH (07:27)
[2020-07-14] MEDS ORDERED: glipiZIDE 5 MG TAB PO SCH (07:30)
[2020-07-14] MEDS ORDERED: PANTOPRAZOLE 40 MG TABLET PO SCH (07:30)
[2020-07-14] MEDS: RANOLAZINE 500 MG TAB.ER.12H PO SCH (07:31)
--- NOTE | 2020-07-14 07:31 | XR ---
EXAMINATION TYPE: XR chest 2V DATE OF EXAM: 07/14/2020 COMPARISON: 08/25/2019 HISTORY: Shortness of breath TECHNIQUE: Frontal and lateral views of the chest are obtained. FINDINGS: Scattered senescent parenchymal changes noted. Hyperinflation compatible with COPD. No evidence for infiltrate. No evidence for atelectasis. Heart size is stable. Mediastinal structures are stable and grossly unremarkable. No evidence for hilar prominence. Degenerative changes dorsal spine. IMPRESSION: 1. No evidence for acute pulmonary disease.
[2020-07-14] MEDS: ISOSORBIDE MONONITRATE ER 60 MG TAB.ER.24H PO SCH (07:32)
[2020-07-14] MEDS: METOPROLOL TARTRATE 25 MG TAB PO SCH (07:32)
[2020-07-14] MEDS ORDERED: lisinopriL 10 MG TAB PO SCH (09:00)
[2020-07-14] MEDS ORDERED: MULTIVITAMINS, THERA 1 EACH TAB PO SCH (09:00)
[2020-07-14] MEDS ORDERED: NON FORMULARY DRUG (Ubidecarenone [Co Q-10] 100 MG Capsule) PO SCH (09:00)
--- NOTE | 2020-07-14 12:09 | P.DS ---
Providers Expected date of discharge: 07/14/20 Attending physician: Paola Dickerson Primary care physician: [facility] Course: 64-year-old male with a previous history of ischemic heart disease with previous CABG and stent placement and previous pacemaker insertion. Patient was seen by Dr. Dickerson outpatient in June 2020 after patient was found to have a bout of sustained ventricular tachycardia. Patient underwent elective upgrade to single chamber AICD with Dr. Dickerson on 07/13/2020. Patient is doing well post procedure. Chest x-ray completed without evidence of pneumothorax. AICD was interrogated this morning by device rep and found to be functioning properly. The patient was cleared for discharge home today. Please see EMR for further hospital course details. Discharge Diagnosis 1. History of sustained ventricular tachycardia, status post upgrade to single chamber AICD Nurse practitioner note has been reviewed by physician. Signing provider agrees with the documented findings, assessment, and plan of care. Plan - Discharge Summary Discharge Rx Participant: Yes New Discharge Prescriptions: No Action Omeprazole [PriLOSEC] 20 mg PO DAILY Fish Oil/Dha/Epa [Fish Oil 1,200 mg Fish Oil] 1 cap PO BID Albuterol Sulfate [Proair Hfa] 2 puff INHALATION RT-Q4H PRN PRN Reason: Shortness Of Breath Multivitamin [Men's Multi-Vitamin] 1 tab PO DAILY lisinopriL [Zestril] 10 mg PO QAM gemfibroziL [Lopid] 600 mg PO BID Ubidecarenone [Co Q-10] 200 mg PO DAILY Aspirin 81 mg PO HS Isosorbide Mononitrate ER [Imdur] 60 mg PO BID Nitroglycerin Sl Tabs [Nitrostat] 0.4 mg SUBLINGUAL Q5M PRN tab PRN Reason: Chest Pain ALPRAZolam [Xanax] 0.25 mg PO BID PRN PRN Reason: Anxiety Albuterol Nebulized [Ventolin Nebulized] 2.5 mg INHALATION RT-Q4H PRN PRN Reason: Shortness Of Breath Ranolazine [Ranexa] 500 mg PO Q12HR #60 tab.er.12h Fluticasone Propion/Salmeterol [Airduo Digihaler 113-14 Mcg] 1 each IH BID Metoprolol Tartrate [Lopressor] 75 mg PO BID glipiZIDE XL [Glucotrol Xl] 10 mg PO DAILY Discharge Medication List Fish Oil/Dha/Epa [Fish Oil 1,200 mg Fish Oil] 1 cap PO BID 10/07/13 [History] Omeprazole [PriLOSEC] 20 mg PO DAILY 10/07/13 [History] Albuterol Sulfate [Proair Hfa] 2 puff INHALATION RT-Q4H PRN 03/01/15 [History] Aspirin 81 mg PO HS 03/01/15 [History] Multivitamin [Men's Multi-Vitamin] 1 tab PO DAILY 03/01/15 [History] Ubidecarenone [Co Q-10] 200 mg PO DAILY 03/01/15 [History] gemfibroziL [Lopid] 600 mg PO BID 03/01/15 [History] lisinopriL [Zestril] 10 mg PO QAM 03/01/15 [History] Isosorbide Mononitrate ER [Imdur] 60 mg PO BID 12/17/17 [History] Nitroglycerin Sl Tabs [Nitrostat] 0.4 mg SUBLINGUAL Q5M PRN tab 07/14/19 [Rx] ALPRAZolam [Xanax] 0.25 mg PO BID PRN 08/11/19 [History] Albuterol Nebulized [Ventolin Nebulized] 2.5 mg INHALATION RT-Q4H PRN 08/26/19 [History] Ranolazine [Ranexa] 500 mg PO Q12HR #60 tab.er.12h 08/26/19 [Rx] Fluticasone Propion/Salmeterol [Airduo Digihaler 113-14 Mcg] 1 each IH BID 06/13/20 [History] Metoprolol Tartrate [Lopressor] 75 mg PO BID 06/13/20 [History] glipiZIDE XL [Glucotrol Xl] 10 mg PO DAILY 06/21/20 [History] Follow up Appointment(s)/Referral(s): Paola Dickerson MD [STAFF PHYSICIAN] - 1 Week Patient Instructions/Handouts: Pacemaker (DC) Discharge Disposition: HOME SELF-CARE
--- NOTE | 2020-07-30 09:28 | P.PCN ---
Date of Procedure: 07/13/20 Description of Procedure: up-grading of Pacemaker to ICD Indication: This patient with history of ischemic coronary disease with previous bypass surgery and stent placement, had a permanent pacemaker for high degree AV block. Recent evaluation showed the patient had sustained V. tach lasting 20 seconds associated with symptoms of dizziness and sweating. He was advised to have ICD implantation. Patient and family were explained the risks and benefits of the procedure. Procedure: Patient was brought to the hospital in a fasting state. He was prepped and draped in the usual fashion. Department of anesthesia provided analgesia and also IV anesthesia during the procedure. The skin over the exist ing pulse generator was infiltrated with lidocaine. An incision was made over the existing generator and was extended to accommodate the new pulse generator, which is hear a Bigger device.Careful dissection was performed under the existing pulse generator and leads were exposed. The leads were carefully freed using cautery and also blunt dissection from adhesions. Using cautery and blunt dissection,, the pocket was extended inferomedially to accommodate the bigger device. Axillary mammography was performed to delineate the axillary vein, which seemed to be patent. A venous stick was performed under guidewire was at once into the superior vena cava. Introducer sheath was advanced over the guidewire and left in the subclavian vein. A new single coil defibrillator lead was advanced and was placed in the superior vena cava. With the help of a straight and curved stylets the lead was advanced into the right ventricular apical region. Satisfactory position was obtained, and thresholds were satisfactory. The lead was screwed in. This was corrected to a new pulse generator. The existing 2 Leads were then disconnected from the pacemakerThe atrial lead was connected to the defibrillator can. The ventricular lead was capped secured to the floor With the silk suture.The pacing and sensing thresholds are stable. The soft impedances stable. DFT test was performed. Subsequently, the pocket was closed in the usual fashion in 3 layers. DFT testing: This was done under deep anesthesia provided by department of anesthesia. Ventricular fibrillation was induced with T shock. This was appropriately detected and a single shock of 15 joules converted the patient to sinus rhythm. Patient tolerated the procedure well. The leads: The ICD lead is manufactured by [employer]. The model number is 6935M-62 cm and the serial number is [id number] . The existing atrial lead was used and the ventricular lead was And the sutured to the floor The device: The defibrillator device is manufactured by [employer]. Model number is [id number], and the serial number [id number] wanted pacemaker device is manufactured by [employer].[id number] and the serial number [id number] Thresholds:. the ventricular minimal patient threshold was 0.75 V at a pulse width of 0.5 with impedance of 456 ohms. The R-wave was 8.1 and the shock impedance was 76. The atrial pacing threshold was 0.5 at pulse width of 0.5 with impedance of 380 ohms. The P-wave was 6.1. DFT testing: This was done in under general anesthesia given by department of anesthesia. The ventricular fibrillation was induced with T shock. A 15 J shock converted patient back to sinus rhythm without any dropouts. Programming: Bradycardia Programming length programmed to AAIR mode with mode switch to DDDR with lower rate 60, upper tracking rate is 1:30 and upper sensing rate is 120. The output in atrial chamber is programmed to 1.5 V at 0.4 ms in the ventricle 3.5 V at a pulse width of 0.4 ms Tachycardia Programming: ventricular fibrillation :the therapies are programmed to burst pacing followed by shocks of 25 J followed by 30 J followed by 40 J 4. Ventricular tachycardia: The therapies are programmed to burst pacing 3, followed by 25 J followed by 40 J 4. Management: Patient will be monitored on the telemetry unit. If stable patient be discharged home in 24 hours. Prophylactic antibiotics to be continued
== END 2020-07-14 09:22 | disposition home or self-care (01) ==
LOC: CATHEP 08:42 → 6NMEDSUR 13:44 → CATHEP 07-14 09:22
PROVIDERS: ATTEND Internal Medicine Cardiovascular Disease
DX: I47.2 Ventricular tachycardia (principal); I25.10 Atherosclerotic heart disease of native coronary artery without angina pectoris; I25.2 Old myocardial infarction; I42.9 Cardiomyopathy, unspecified; I50.9 Heart failure, unspecified; J44.9 Chronic obstructive pulmonary disease, unspecified; E11.9 Type 2 diabetes mellitus without complications; K21.9 Gastro-esophageal reflux disease without esophagitis; E78.5 Hyperlipidemia, unspecified; Z79.82 Long term (current) use of aspirin; Z79.899 Other long term (current) drug therapy; Z79.84 Long term (current) use of oral hypoglycemic drugs; Z88.2 Allergy status to sulfonamides; Z88.8 Allergy status to other drugs, medicaments and biological substances; Z95.0 Presence of cardiac pacemaker; Z82.49 Family history of ischemic heart disease and other diseases of the circulatory system; Z72.0 Tobacco use; E78.00 Pure hypercholesterolemia, unspecified; Z95.5 Presence of coronary angioplasty implant and graft; Z95.1 Presence of aortocoronary bypass graft
CPT/HCPCS: 94640 ×3; 93641; 33249; 71046; C1769 ×2; C1721; C1892; C1895; J2250; J0690; J2001; J3010; J2704; Q9966

== ENCOUNTER 2020-12-24 14:29 | Observation (INO) | payer MEDICARE ==
[2020-12-24] MEDS ORDERED: IPRATROPIUM 0.5 MG/2.5 ML NEBU INHALATION STA (15:16)
[2020-12-24] MEDS ORDERED: ALBUTEROL NEBULIZED 2.5 MG/3 ML INHALATION STA (15:16)
[2020-12-24] MEDS ORDERED: methylPREDNISolone SOD SUCCI 125 MG/2 ML VIAL IV STA (15:16)
[2020-12-24 15:35] LABS: Basophils % (A) 0 %; Eosinophils # (A) 0.1 k/uL (0-0.7); Eosinophils % (A) 1 %; HCT 35.6 % (39.0-53.0); HGB 11.8 gm/dL (13.0-17.5); Lymphocytes # (A) 1.1 k/uL (1.0-4.8); Lymphocytes % (A) 17 %; MCH 32.9 pg (25.0-35.0); MCHC 33.2 g/dL (31.0-37.0); Mean Platelet Volume 7.8; Monocytes # (A) 0.4 k/uL (0-1.0); Monocytes % (A) 7 %; Neutrophils # (A) 4.9 k/uL (1.3-7.7); Neutrophils % (A) 73 %; Platelet Count 226 k/uL (150-450); RDW 13.4 % (11.5-15.5); WBC 6.7 k/uL (3.8-10.6)
[2020-12-24 15:43] LABS: Albumin 3.6 g/dL (3.5-5.0); Calcium 9.1 mg/dL (8.4-10.2); Magnesium 2.1 mg/dL (1.6-2.3); Potassium 5.1 mmol/L (3.5-5.1); Total Bilirubin 0.6 mg/dL (0.2-1.3); Total Protein 6.5 g/dL (6.3-8.2)
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
--- NOTE | 2020-12-24 16:38 | XR ---
EXAMINATION TYPE: XR chest 2V DATE OF EXAM: 12/24/2020 COMPARISON: Prior chest x-ray 07/14/2020 HISTORY: Bullae breathing, shortness of breath TECHNIQUE: Frontal and lateral views of the chest are obtained. FINDINGS: Interstitium is somewhat increased. Patient is post median sternotomy. Generators present in left pectoral region, there are leads in right atrium, right ventricle. There is no evident pneumo thorax. There is some blunting the cost phrenic angle which may be an interval finding. Aorta is dens e. There are overlying leads. Prominent lung volumes may be indicative of underlying COPD. IMPRESSION: Correlate for possible pulmonary venous hypertension and early interstitial edema. Suspe ct small pleural effusions. This likely underlying COPD.
[2020-12-24] MEDS ORDERED: cefTRIAXone IN SWFI 1,000 MG/10 ML SYRINGE IVP STA (16:50)
[2020-12-24] MEDS ORDERED: methylPREDNISolone SOD SUCCI 125 MG/2 ML VIAL IV SCH (18:00)
[2020-12-24] MEDS: IPRATROPIUM-ALBUTEROL 3 ML NEB INHALATION PRN (19:51)
[2020-12-24] MEDS ORDERED: ALPRAZolam 0.25 MG TAB PO PRN (20:31)
[2020-12-24] MEDS: glipiZIDE 10 MG TAB PO SCH (21:12)
[2020-12-24] MEDS: ISOSORBIDE MONONITRATE ER 60 MG TAB.ER.24H PO SCH (21:12)
[2020-12-24] MEDS: FENOFIBRATE 160 MG TAB PO SCH (21:12)
[2020-12-24] MEDS: ASPIRIN 81 MG PO SCH (21:13)
[2020-12-24] MEDS: METOPROLOL TARTRATE 50 MG TAB PO SCH (21:13)
[2020-12-24] MEDS: RANOLAZINE 500 MG TAB.ER.12H PO SCH (21:13)
[2020-12-24] MEDS: methylPREDNISolone SOD SUCCI 125 MG/2 ML VIAL IV SCH (21:13)
[2020-12-25] MEDS: IPRATROPIUM-ALBUTEROL 3 ML NEB INHALATION PRN ×2 (01:58→07:29)
[2020-12-25] MEDS: methylPREDNISolone SOD SUCCI 125 MG/2 ML VIAL IV SCH ×3 (03:22→16:12)
[2020-12-25 07:11] LABS: Glucose,Whole Blood 415 mg/dL (75-99)
[2020-12-25 07:11] LABS: Glucose,Whole Blood 411 mg/dL (75-99)
[2020-12-25] MEDS ORDERED: INSULIN ASPART (NovoLOG) 100 UNIT/ML VIAL SQ SCH (08:32)
[2020-12-25] MEDS ORDERED: INSULIN ASPART (NovoLOG) 100 UNIT/ML VIAL SQ ONE (08:36)
[2020-12-25] MEDS: RANOLAZINE 500 MG TAB.ER.12H PO SCH ×2 (08:45→21:08)
[2020-12-25] MEDS: METOPROLOL TARTRATE 50 MG TAB PO SCH ×2 (08:46→21:08)
[2020-12-25] MEDS: lisinopriL 10 MG TAB PO SCH (08:46)
[2020-12-25] MEDS: glipiZIDE 10 MG TAB PO SCH ×2 (08:46→21:08)
[2020-12-25] MEDS: ISOSORBIDE MONONITRATE ER 60 MG TAB.ER.24H PO SCH ×2 (08:46→21:08)
[2020-12-25] MEDS: PANTOPRAZOLE 40 MG TABLET PO SCH (08:46)
[2020-12-25] MEDS: AZITHROMYCIN 500 MG TAB PO SCH (08:57)
[2020-12-25] MEDS ORDERED: NITROGLYCERIN SL TABS 0.4 MG TAB SUBLINGUAL PRN (09:46)
[2020-12-25] MEDS: SODIUM CHLORIDE 0.9% 1,000 ML IV SCH ×2 (10:16→17:18)
[2020-12-25] MEDS: MULTIVITAMINS, THERA 1 EACH TAB PO SCH (10:16)
[2020-12-25] MEDS ORDERED: CEFDINIR 300 MG CAP PO SCH (10:30)
[2020-12-25] MEDS ORDERED: INSULIN NPH 300 UNIT/3 ML VIAL SQ SCH ×2 (10:30→23:15)
[2020-12-25] MEDS: IPRATROPIUM-ALBUTEROL 3 ML NEB INHALATION SCH ×3 (11:29→19:15)
[2020-12-25 11:53] LABS: Glucose,Whole Blood 283 mg/dL (75-99)
[2020-12-25] MEDS: INSULIN ASPART (NovoLOG) 100 UNIT/ML VIAL SQ SCH ×3 (12:35→21:07)
[2020-12-25 17:08] LABS: Glucose,Whole Blood 364 mg/dL (75-99)
[2020-12-25] MEDS ORDERED: predniSONE 20 MG TAB PO SCH (18:00)
[2020-12-25] MEDS ORDERED: LACTULOSE 20 GM/30 ML CUP PO ONE (20:45)
[2020-12-25 20:55] LABS: Glucose,Whole Blood 414 mg/dL (75-99)
[2020-12-25 20:56] LABS: Glucose,Whole Blood 430 mg/dL (75-99)
[2020-12-25] MEDS: ASPIRIN 81 MG PO SCH (21:08)
[2020-12-25] MEDS: FENOFIBRATE 160 MG TAB PO SCH (21:08)
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
[2020-12-26 01:26] LABS: Glucose,Whole Blood 327 mg/dL (75-99)
[2020-12-26] MEDS: IPRATROPIUM-ALBUTEROL 3 ML NEB INHALATION PRN (04:17)
[2020-12-26 06:05] LABS: African American GFR (CKD) 65 (>60 ml/min/1.73 sqM); Anion Gap 5 mmol/L; Blood Urea Nitrogen 37 mg/dL (9-20); Calcium 9.4 mg/dL (8.4-10.2); Carbon Dioxide 26 mmol/L (22-30); Chloride 108 mmol/L (98-107); Glucose 286 mg/dL (74-99); Non-African American GFR(CKD) 57 (>60 ml/min/1.73 sqM); Potassium 5.2 mmol/L (3.5-5.1); Sodium 139 mmol/L (137-145)
[2020-12-26] MEDS: IPRATROPIUM-ALBUTEROL 3 ML NEB INHALATION SCH ×4 (07:34→21:04)
[2020-12-26 07:38] LABS: Glucose,Whole Blood 227 mg/dL (75-99)
[2020-12-26] MEDS: SODIUM CHLORIDE 0.9% 1,000 ML IV SCH ×2 (08:15→21:11)
[2020-12-26] MEDS: INSULIN ASPART (NovoLOG) 100 UNIT/ML VIAL SQ SCH ×4 (08:16→21:11)
[2020-12-26] MEDS: glipiZIDE 10 MG TAB PO SCH ×2 (08:18→21:12)
[2020-12-26] MEDS: MULTIVITAMINS, THERA 1 EACH TAB PO SCH (08:18)
[2020-12-26] MEDS: lisinopriL 10 MG TAB PO SCH (08:18)
[2020-12-26] MEDS: RANOLAZINE 500 MG TAB.ER.12H PO SCH ×2 (08:18→21:12)
[2020-12-26] MEDS: PANTOPRAZOLE 40 MG TABLET PO SCH (08:18)
[2020-12-26] MEDS: ISOSORBIDE MONONITRATE ER 60 MG TAB.ER.24H PO SCH ×2 (08:18→21:12)
[2020-12-26] MEDS: AZITHROMYCIN 500 MG TAB PO SCH (08:18)
[2020-12-26] MEDS: METOPROLOL TARTRATE 50 MG TAB PO SCH ×2 (08:20→21:11)
[2020-12-26] MEDS ORDERED: predniSONE 10 MG TAB PO SCH (09:00)
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
[2020-12-26 11:49] LABS: Glucose,Whole Blood 210 mg/dL (75-99)
[2020-12-26 15:12] VITALS: RESP 18
[2020-12-26 17:31] LABS: Glucose,Whole Blood 210 mg/dL (75-99)
--- NOTE | 2020-12-26 17:46 | P.PN ---
Progress Note - Text Progress Note Date: 12/26/20 Chief Complaint: Short of breath History of presenting complaint: This is 63-year-old patient of Dr. 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 Dickerson. Chronic stable medical conditions include COPD, diabetes, GERD, CAD-coronary bypass. second degree heart block.- permanent pacemaker Patient with 3-4 days been having increasing shortness of breath wheezing. Cough with yellow sputum. No change in appetite bowel movements are good. No fever no chills. Patient also had been taking indomethacin for a flareup of gout. Feeling better with bronchodilators. at the bedside. No chest pain Admitted with COPD exacerbation, pneumonia. Put on bronchodilators, burst of steroids, IV ceftriaxone. December 26: Breathing better. Oral intake better. Sitting up. Review of systems: Was done for constitutional, cardiovascular, GI, pulmonary. relevant finding as above Active Medications Albuterol/Ipratropium (Ipratropium-Albuterol 3 Ml Neb) 3 ml INHALATION RT-Q4H PRN PRN Reason: Shortness Of Breath Or Wheezing Last Admin: 12/26/20 04:17 Dose: 3 ml Documented by: Albuterol/Ipratropium (Ipratropium-Albuterol 3 Ml Neb) 3 ml INHALATION RT-QID [facility] Last Admin: 12/26/20 15:35 Dose: 3 ml Documented by: Alprazolam (Alprazolam 0.25 Mg Tab) 0.25 mg PO BID PRN PRN Reason: Anxiety Last Admin: 12/25/20 01:46 Dose: 0.25 mg Documented by: Aspirin (Aspirin 81 Mg) 81 mg PO [facility] Last Admin: 12/25/20 21:08 Dose: 81 mg Documented by: Azithromycin (Azithromycin 500 Mg Tab) 500 mg PO DAILY [facility] Last Admin: 12/26/20 08:18 Dose: 500 mg Documented by: Fenofibrate (Fenofibrate 160 Mg Tab) 160 mg PO [facility] Last Admin: 12/25/20 21:08 Dose: 160 mg Documented by: Glipizide (Glipizide 10 Mg Tab) 10 mg PO BID [facility] Last Admin: 12/26/20 08:18 Dose: 10 mg Documented by: Sodium Chloride (Saline 0.9%) 1,000 mls @ 75 mls/hr IV .[id number] [facility] Last Admin: 12/26/20 08:15 Dose: Not Given Documented by: Ceftriaxone Sodium 1 gm/ (Sodium Chloride) 50 mls @ 100 mls/hr IVPB Q24HR [facility] Last Admin: 12/26/20 08:13 Dose: 100 mls/hr Documented by: Insulin Aspart (Insulin Aspart (Novolog) 100 Unit/Ml Vial) 0 unit SQ ACHS [facility]; Protocol Last Admin: 12/26/20 12:24 Dose: 4 unit Documented by: Isosorbide Mononitrate (Isosorbide Mononitrate Er 60 Mg Tab.Er.24h) 60 mg PO BID [facility] Last Admin: 12/26/20 08:18 Dose: 60 mg Documented by: Lisinopril (Lisinopril 10 Mg Tab) 10 mg PO DAILY [facility] Last Admin: 12/26/20 08:18 Dose: 10 mg Documented by: Metoprolol Tartrate (Metoprolol Tartrate 50 Mg Tab) 100 mg PO BID [facility] Last Admin: 12/26/20 08:20 Dose: 100 mg Documented by: Multivitamins (Multivitamins, Thera 1 Each Tab) 1 each PO DAILY [facility] Last Admin: 12/26/20 08:18 Dose: 1 each Documented by: Nitroglycerin (Nitroglycerin Sl Tabs 0.4 Mg Tab) 0.4 mg SUBLINGUAL Q5M PRN PRN Reason: Chest Pain Pantoprazole Sodium (Pantoprazole 40 Mg Tablet) 40 mg PO AC-BRKFST [facility] Last Admin: 12/26/20 08:18 Dose: 40 mg Documented by: Prednisone (Prednisone 10 Mg Tab) 30 mg PO DAILY [facility] Last Admin: 12/26/20 08:18 Dose: 30 mg Documented by: Ranolazine (Ranolazine 500 Mg Tab.Er.12h) 500 mg PO Q12HR [facility] Last Admin: 12/26/20 08:18 Dose: 500 mg Documented by: Past medical history to include: Coronary artery disease with a bypass, CHF, COPD, diabetes, GERD, heart block with a pacemaker Social history: Patient smoked for about 40 years stopped in 2008. No alcohol. . Physical examination: VITAL SIGNS: 97.6, 58, 18, 156/86, 95% room air GENERAL: Sitting up breathing better EYES: Pupils equal. Conjunctiva normal. HEENT: External appearance of nose and ears normal, oral cavity grossly normal. NECK: JVD not raised; masses not palpable. HEART: First and second heart sounds are normal; no edema. LUNGS: Respiratory rate increased, decreased breath sound. CHEST wall: pacemaker ABDOMEN: Soft, nontender, liver spleen not palpable, no masses palpable. PSYCH: Alert and oriented x3; mood and affect normal. NEUROLOGICAL: Cranial nerves grossly intact; no facial asymmetry, power and sensation grossly intact. LYMPHATICS: No lymph nodes palpable in the axilla and neck INVESTIGATIONS, reviewed in the clinical context: December when he first: Potassium 5.2 creatinine 1.31. Pro-calcitonin 0.05 WBC 6.7 hemoglobin 11.8 platelets 2.6 potassium 5.1 BUN 34 creatinine 1.35 Creatinine 1.28 on 06/19/2020 EKG tracing personally reviewed by me-atrial sensed ventricle paced rhythm Chest x-ray film personally reviewed by me-possible infiltrate Assessment and plan: -Acute COPD exacerbation in a [id number] DuoNeb. Prednisone. -Pneumonia. Suspect gram-negative organism.: Improving IV ceftriaxone. Changed to Omnicef in the morning -Coronary artery disease with prior history of coronary bypass, and blocked grafts Continue with Rikki Degroot Lopid, M.D. or, aspirin -Chronic kidney disease stage III likely nephrosclerosis Follow renal function. DC Indocin -Diabetes mellitus type 2, on oral hypoglycemic. Uncontrolled from steroids Follow Accu-Cheks.: Cover with insulin -GERD PPI -Chronic congestive heart failure from systolic dysfunction EF 40-45% from coronary artery disease Zestril, nitrate, Lopressor -Permanent pacemaker -Gout Continue current treatment plan. Getting better. Hopefully discharge home tomorrow.
[2020-12-26] MEDS: ENOXAPARIN 40 MG/0.4 ML SYRINGE SQ SCH (18:31)
[2020-12-26 20:20] LABS: Glucose,Whole Blood 323 mg/dL (75-99)
[2020-12-26] MEDS: ASPIRIN 81 MG PO SCH (21:11)
[2020-12-26] MEDS: FENOFIBRATE 160 MG TAB PO SCH (21:12)
[2020-12-27 07:12] LABS: Glucose,Whole Blood 84 mg/dL (75-99)
[2020-12-27 07:13] LABS: Glucose,Whole Blood 87 mg/dL (75-99)
[2020-12-27] MEDS: IPRATROPIUM-ALBUTEROL 3 ML NEB INHALATION SCH ×2 (07:31→11:26)
[2020-12-27 08:29] VITALS: BP 146/83; TEMP 98.1
[2020-12-27] MEDS ORDERED: CEFDINIR 300 MG CAP PO SCH (09:00)
[2020-12-27] MEDS ORDERED: predniSONE 20 MG TAB PO SCH (09:00)
[2020-12-27] MEDS: ENOXAPARIN 40 MG/0.4 ML SYRINGE SQ SCH (09:45)
[2020-12-27] MEDS: MULTIVITAMINS, THERA 1 EACH TAB PO SCH (09:46)
[2020-12-27] MEDS: PANTOPRAZOLE 40 MG TABLET PO SCH (09:46)
[2020-12-27] MEDS: METOPROLOL TARTRATE 50 MG TAB PO SCH (09:46)
[2020-12-27] MEDS: INSULIN ASPART (NovoLOG) 100 UNIT/ML VIAL SQ SCH ×2 (09:47→13:52)
[2020-12-27] MEDS: lisinopriL 10 MG TAB PO SCH (09:58)
[2020-12-27] MEDS: glipiZIDE 10 MG TAB PO SCH (09:58)
[2020-12-27] MEDS: ISOSORBIDE MONONITRATE ER 60 MG TAB.ER.24H PO SCH (09:58)
[2020-12-27] MEDS: RANOLAZINE 500 MG TAB.ER.12H PO SCH (09:58)
[2020-12-27 11:49] LABS: Glucose,Whole Blood 167 mg/dL (75-99)
[2020-12-27 12:45] LABS: African American GFR (CKD) 74 (>60 ml/min/1.73 sqM); Anion Gap 6 mmol/L; Blood Urea Nitrogen 36 mg/dL (9-20); Calcium 9.3 mg/dL (8.4-10.2); Carbon Dioxide 28 mmol/L (22-30); Chloride 106 mmol/L (98-107); Glucose 157 mg/dL (74-99); Non-African American GFR(CKD) 64 (>60 ml/min/1.73 sqM); Potassium 4.7 mmol/L (3.5-5.1); Sodium 140 mmol/L (137-145)
--- NOTE | 2020-12-27 13:10 | P.PN ---
Subjective Progress Note Date: 12/27/20 Principal diagnosis: COPD exacerbation. This is a very pleasant 65-year-old gentleman who follows with Dr. Quinn as his primary care provider. He has a history of diabetes mellitus, coronary artery disease with previous coronary artery bypass grafting, gastroesophageal reflux d isease, hypertension, AICD, anxiety. He also has a history of years of smoking however quit in 2010. He does have significant COPD. His FEV1 value is 50% of predicted. He is maintained on Advair duo and albuterol in the outpatient setting. He presented here to the emergency room on 12/24/2020 with complaints of increasing shortness of breath, cough and congestion. Chest x-ray revealed evidence of small effusions. White count 6.7. Hemoglobin 11.8. Sodium 139. Potassium 5.2. Creatinine 1.31. Glucose 286. Blood cultures reveal no growth. He was initiated on after excellent, azithromycin, DuoNeb inhalations, and prednisone. He is seen today in consultation. He is up ambulating in his room. He is 97% O2 saturation on room air. Slightly better today compared to yesterday. Still has some dyspnea on exertion. Progress note dated 12/27/2020. 65-year-old gentleman who sees our nurse practitioner in the office for moderately severe COPD. The primary care physician is Dr. Sammy Quinn. The patient also has a diagnosis of diabetes, coronary disease with previous bypass grafting, GERD, hypertension, placement of AICD, and anxiety. The patient is f eeling better today. Sitting up at the bedside. His is actually laying in the bed next to him. The patient has been weaned off the oxygen. He states that he feels still a bit plugged up. We did review his lung function. FEV1 percent is 50. Labs today include a sodium 140, potassium 4.7, chlorides 106, CO2 28, anion gap 6, BUN 36, and creatinine 1.18. Chest x-ray from December 24 is reviewed. Objective - Vital Signs Vital signs: Vital Signs Temp 98.1 F 12/27/20 07:00 Pulse 71 12/27/20 11:36 Resp 18 12/27/20 07:00 BP 146/83 12/27/20 07:00 Pulse Ox 96 12/27/20 07:00 Intake & Output 12/26/20 12/27/20 12/27/20 18:59 06:59 18:59 Other: Voiding Method Toilet # Voids 4 2 # Bowel Movements 1 - Exam No acute distress, oriented 3. No conversational dyspnea, use of accessory muscles, or audible wheezing. Currently, patient on room air. HEENT examination is grossly unremarkable. Neck supple. Full range of motion. No adenopathy thyromegaly or neck vein distention. Cardiovascular examination reveals regular rhythm rate. S1-S2 normal. No S3 or S4. No discernible murmur noted. Heart rate 71 bpm. Lungs reveal improved breath sounds. End-expiratory wheezes are noted. There are no rhonchi or crackles. Breath sounds are equal bilaterally. Abdomen soft bowel sounds are heard. No masses or tenderness. Extremities are intact. No cyanosis clubbing or edema. Skin is without rash or lesion. Neurologic examination is brief but nonfocal. - Labs CBC & Chem 7: 12/24/20 15:24 12/27/20 11:48 Labs: Abnormal Lab Results - Last 24 Hours (Table) 12/26/20 12/26/20 12/27/20 Range/Units 17:29 20:18 11:48 BUN 36 H (9-20) mg/dL Glucose 157 H (74-99) mg/dL POC Glucose (mg/dL) 210 H 323 H (75-99) mg/dL 12/27/20 Range/Units 11:48 BUN (9-20) mg/dL Glucose (74-99) mg/dL POC Glucose (mg/dL) 167 H (75-99) mg/dL Microbiology - Last 24 Hours (Table) 12/24/20 16:35 Blood Culture - Preliminary Blood No Growth after 48 hours 12/24/20 16:52 Blood Culture - Preliminary Blood No Growth after 48 hours Assessment and Plan Assessment: 1 Acute exacerbation of chronic obstructive pulmonary disease, FEV1 value 50% of predicted. 2 History of 40+ years pack per day smoking, quit 2010. 3 History of coronary artery disease with previous stent placement and previous coronary artery bypass grafting. 4 Ischemic cardiomyopathy status post AICD placement. 5 Diabetes mellitus. 6 Hypertension. 7 History of congestive heart failure. 8 Gastroesophageal reflux disease. Plan: Plan dated 12/27/2020. Currently, the patient's on appropriate medications including prednisone, DuoNeb nebs, and Symbicort. The patient could probably be discharged home today. The patient should follow-up with Dr. Keane's in the office. No additional recommendations are made. Prognosis is guarded. I did take the time to explain to him and his , that he had an FEV1 percent was 50. Hence, he's got moderately severe disease. Time with Patient: Less than 30
[2020-12-27] MEDS: SODIUM CHLORIDE 0.9% 1,000 ML IV SCH (13:55)
[2020-12-27 14:04] VITALS: PULSE 66
--- NOTE | 2020-12-27 18:29 | P.DS ---
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 Chronic stable medical conditions include COPD, diabetes, GERD, CAD-coronary bypass. second degree heart block.- permanent pacemaker Patient with 3-4 days been having increasing shortness of breath wheezing. Cough with yellow sputum. No change in appetite bowel movements are good. No fever no chills. Patient also had been taking indomethacin for a flareup of gout. Feeling better with bronchodilators. at the bedside. No chest pain Admitted with COPD exacerbation, pneumonia. Put on bronchodilators, burst of steroids, IV ceftriaxone. December 26: Breathing better. Oral intake better. Sitting up. December 27: Doing much better. Breathing improved. Has a nebulizer at home. Discussed with the patient and . Cleared by pulmonary Consultation: Dr. King from pulmonary Past medical history to include: Coronary artery disease with a bypass, CHF, COPD, diabetes, GERD, heart block with a pacemaker Social history: Patient smoked for about 40 years stopped in 2008. No alcohol. . Physical examination: VITAL SIGNS: 98.1, 66, 18, 1 46 x 83, 96% room air GENERAL: Sitting up comfortable EYES: Pupils equal. Conjunctiva normal. HEENT: External appearance of nose and ears normal, oral cavity grossly normal. NECK: JVD not raised; masses not palpable. HEART: First and second heart sounds are normal; no edema. LUNGS: Respiratory rate normal, improved air entry CHEST wall: pacemaker ABDOMEN: Soft, nontender, liver spleen not palpable, no masses palpable. PSYCH: Alert and oriented x3; mood and affect normal. INVESTIGATIONS, reviewed in the clinical context: December 27: Potassium 4.7 creatinine 1.18 December 26: Potassium 5.2 creatinine 1.31. Pro-calcitonin 0.05 WBC 6.7 hemoglobin 11.8 platelets 2.6 potassium 5.1 BUN 34 creatinine 1.35 Creatinine 1.28 on 06/19/2020 EKG tracing personally reviewed by me-atrial sensed ventricle paced rhythm Chest x-ray film personally reviewed by me-possible infiltrate Assessment and plan: -Acute COPD exacerbation in a gq-ehulal-hsbrfomt DuoNeb. Prednisone. -Pneumonia. Suspect gram-negative organism.: Improving IV ceftriaxone. Omnicef for 3 days -Coronary artery disease with prior history of coronary bypass, and blocked grafts Continue with Lopressor, Ranexa, Lopid, aspirin -Chronic kidney disease stage III likely nephrosclerosis DC Indocin -Diabetes mellitus type 2, on oral hypoglycemic. Uncontrolled from steroids Follow Accu-Cheks.: Cover with insulin -GERD PPI -Chronic congestive heart failure from systolic dysfunction EF 40-45% from coronary artery disease Zestril, nitrate, Lopressor -Permanent pacemaker -Gout Disposition: Home BMP: 1 week Patient Condition at Discharge: Good Plan - Discharge Summary Discharge Rx Participant: No New Discharge Prescriptions: New Cefdinir [Omnicef] 300 mg PO BID #6 cap Continue Omeprazole [PriLOSEC] 20 mg PO DAILY Fish Oil/Dha/Epa [Fish Oil 1,200 mg Fish Oil] 1 cap PO BID Albuterol Sulfate [Proair Hfa] 2 puff INHALATION RT-Q4H PRN PRN Reason: Shortness Of Breath Multivitamin [Men's Multi-Vitamin] 1 tab PO DAILY lisinopriL [Zestril] 10 mg PO DAILY gemfibroziL [Lopid] 600 mg PO BID Ubidecarenone [Co Q-10] 200 mg PO DAILY Aspirin 81 mg PO HS Isosorbide Mononitrate ER [Imdur] 60 mg PO BID Nitroglycerin Sl Tabs [Nitrostat] 0.4 mg SUBLINGUAL Q5M PRN tab PRN Reason: Chest Pain ALPRAZolam [Xanax] 0.25 mg PO BID PRN PRN Reason: Anxiety Albuterol Nebulized [Ventolin Nebulized] 2.5 mg INHALATION RT-QID PRN PRN Reason: Shortness Of Breath Ranolazine [Ranexa] 500 mg PO Q12HR #60 tab.er.12h Fluticasone Propion/Salmeterol [Airduo Digihaler 113-14 Mcg] 1 puff INHALATION RT-BID glipiZIDE XL [Glucotrol XL] 10 mg PO BID Metoprolol Tartrate [Lopressor] 100 mg PO BID Discontinued Indomethacin [Indocin] 50 mg PO TID-W/MEALS Discharge Medication List Fish Oil/Dha/Epa [Fish Oil 1,200 mg Fish Oil] 1 cap PO BID 10/07/13 [History] Omeprazole [PriLOSEC] 20 mg PO DAILY 10/07/13 [History] Albuterol Sulfate [Proair Hfa] 2 puff INHALATION RT-Q4H PRN 03/01/15 [History] Aspirin 81 mg PO HS 03/01/15 [History] Multivitamin [Men's Multi-Vitamin] 1 tab PO DAILY 03/01/15 [History] Ubidecarenone [Co Q-10] 200 mg PO DAILY 03/01/15 [History] gemfibroziL [Lopid] 600 mg PO BID 03/01/15 [History] lisinopriL [Zestril] 10 mg PO DAILY 03/01/15 [History] Isosorbide Mononitrate ER [Imdur] 60 mg PO BID 12/17/17 [History] Nitroglycerin Sl Tabs [Nitrostat] 0.4 mg SUBLINGUAL Q5M PRN tab 07/14/19 [Rx] ALPRAZolam [Xanax] 0.25 mg PO BID PRN 08/11/19 [History] Albuterol Nebulized [Ventolin Nebulized] 2.5 mg INHALATION RT-QID PRN 08/26/19 [History] Ranolazine [Ranexa] 500 mg PO Q12HR #60 tab.er.12h 08/26/19 [Rx] Fluticasone Propion/Salmeterol [Airduo Digihaler 113-14 Mcg] 1 puff INHALATION RT-BID 06/13/20 [History] glipiZIDE XL [Glucotrol XL] 10 mg PO BID 06/21/20 [History] Metoprolol Tartrate [Lopressor] 100 mg PO BID 12/24/20 [History] Cefdinir [Omnicef] 300 mg PO BID #6 cap 12/27/20 [Rx] Follow up Appointment(s)/Referral(s): Sammy Quinn MD [Primary Care Provider] - 1-2 days Activity/Diet/Wound Care/Special Instructions: [facility] can be contacted at phone: fax: . Your account number is [id number]. Discharge Disposition: HOME SELF-CARE
== END 2020-12-27 13:58 | disposition home or self-care (01) ==
LOC: EC 14:29 → 6NMEDSUR 17:08
PROVIDERS: ADMIT Hospitalist; ATTEND Hospitalist
DX: J44.0 Chronic obstructive pulmonary disease with (acute) lower respiratory infection (principal); J44.1 Chronic obstructive pulmonary disease with (acute) exacerbation; J18.9 Pneumonia, unspecified organism; I25.10 Atherosclerotic heart disease of native coronary artery without angina pectoris; E11.22 Type 2 diabetes mellitus with diabetic chronic kidney disease; I13.0 Hypertensive heart and chronic kidney disease with heart failure and stage 1 through stage 4 chronic kidney disease, or unspecified chronic kidney disease; N18.30 Chronic kidney disease, stage 3 unspecified; K21.9 Gastro-esophageal reflux disease without esophagitis; I50.20 Unspecified systolic (congestive) heart failure; I25.5 Ischemic cardiomyopathy; I25.2 Old myocardial infarction; I44.1 Atrioventricular block, second degree; F41.9 Anxiety disorder, unspecified; M10.9 Gout, unspecified; Z98.41 Cataract extraction status, right eye; Z98.42 Cataract extraction status, left eye; Z79.899 Other long term (current) drug therapy; Z79.84 Long term (current) use of oral hypoglycemic drugs; Z79.82 Long term (current) use of aspirin; Z88.1 Allergy status to other antibiotic agents; Z88.2 Allergy status to sulfonamides; Z88.8 Allergy status to other drugs, medicaments and biological substances; Z87.891 Personal history of nicotine dependence; Z95.1 Presence of aortocoronary bypass graft; Z95.5 Presence of coronary angioplasty implant and graft; Z95.810 Presence of automatic (implantable) cardiac defibrillator; Z82.49 Family history of ischemic heart disease and other diseases of the circulatory system; Z80.1 Family history of malignant neoplasm of trachea, bronchus and lung
CPT/HCPCS: 99285; 96376 ×2; 96365; 96366; 96372 ×2; 96375; 36415; 94640 ×8; 94760 ×2; 94645; 93005; 80053; 80048 ×2; 83605; 83735; 84484; 85025; 87040; 84145; 71046; G0378 ×4; J2930 ×2; J1650 ×2; J0696 ×3; J7512 ×3

== ENCOUNTER 2021-03-09 17:15 | Emergency (ER) | payer MEDICARE ==
[2021-03-09 17:44] VITALS: TEMP 97.7
--- NOTE | 2021-03-09 18:07 | XR ---
EXAMINATION TYPE: XR chest 2V DATE OF EXAM: 03/09/2021 COMPARISON: 12/24/2020 HISTORY: Difficulty breathing TECHNIQUE: 2 views FINDINGS: Heart is normal. Lungs are clear of consolidation. There are no hilar masses. There is left axillary pacemaker. There are sternal wires. Costophrenic angles are clear. There are chest leads. B ricco thorax is intact. IMPRESSION: No active cardiopulmonary disease. There is clearing of the mild pleural reaction and int erstitial density left lung base compared to last exam.
[2021-03-09 18:11] LABS: Basophils # (A) 0.1 k/uL (0-0.2); Basophils % (A) 1 %; Eosinophils # (A) 0.1 k/uL (0-0.7); Eosinophils % (A) 2 %; HCT 39.6 % (39.0-53.0); HGB 13.7 gm/dL (13.0-17.5); Lymphocytes # (A) 2.2 k/uL (1.0-4.8); Lymphocytes % (A) 25 %; MCH 34.2 pg (25.0-35.0); MCHC 34.5 g/dL (31.0-37.0); MCV 99.1 fL (80.0-100.0); Mean Platelet Volume 7.5; Monocytes # (A) 0.6 k/uL (0-1.0); Monocytes % (A) 6 %; Neutrophils # (A) 5.9 k/uL (1.3-7.7); Neutrophils % (A) 65 %; Platelet Count 235 k/uL (150-450); RBC 3.99 m/uL (4.30-5.90)
[2021-03-09 18:20] LABS: Partial Thromboplastin Time 23.9 sec (22.0-30.0); Prothrombin Time 10.4 sec (9.0-12.0)
[2021-03-09 18:29] LABS: Calcium 9.3 mg/dL (8.4-10.2); Potassium 4.2 mmol/L (3.5-5.1); Total Bilirubin 0.5 mg/dL (0.2-1.3); Total Protein 6.9 g/dL (6.3-8.2)
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
[2021-03-09 19:24] VITALS: BP 150/77; PULSE 68; RESP 18
== END 2021-03-09 19:56 | disposition home or self-care (01) ==
LOC: EC 17:15
DX: T63.441A Toxic effect of venom of bees, accidental (unintentional), initial encounter (principal); R07.89 Other chest pain; E11.36 Type 2 diabetes mellitus with diabetic cataract; I25.2 Old myocardial infarction; I25.10 Atherosclerotic heart disease of native coronary artery without angina pectoris; I50.9 Heart failure, unspecified; J44.9 Chronic obstructive pulmonary disease, unspecified; K21.9 Gastro-esophageal reflux disease without esophagitis; Z79.51 Long term (current) use of inhaled steroids; Z79.82 Long term (current) use of aspirin; Z79.84 Long term (current) use of oral hypoglycemic drugs; Z87.891 Personal history of nicotine dependence; Z88.2 Allergy status to sulfonamides; Z88.8 Allergy status to other drugs, medicaments and biological substances; Z95.0 Presence of cardiac pacemaker; Z82.49 Family history of ischemic heart disease and other diseases of the circulatory system; Z80.1 Family history of malignant neoplasm of trachea, bronchus and lung
CPT/HCPCS: 36415; 71046; 80053; 82550; 83735; 83880; 84484; 85025; 85610; 85730; 93005; 99285

== ENCOUNTER 2021-03-09 22:39 | Emergency (ER) | payer MEDICARE ==
[2021-03-09] MEDS ORDERED: DIPH,PERTUS(ACELL)TETVAC-LF 0.5 ML VIAL IM ONE (22:52)
[2021-03-09] MEDS ORDERED: GELATIN SPONGE,ABSORB (LARGE) 1 EACH SPONGE TOPICAL STA (22:53)
[2021-03-09] MEDS ORDERED: LIDOCAINE 1% INJ 10MG/ML (20 ML MDV) SQ ONE (22:53)
--- NOTE | 2021-03-09 23:20 | XR ---
EXAMINATION TYPE: XR finger RT DATE OF EXAM: 03/09/2021 COMPARISON: NONE HISTORY: Laceration TECHNIQUE: 3 views FINDINGS: There is transverse fracture through the mid shaft of the distal phalanx of the right thumb . There is laceration soft tissue deformity also. The IP joint space is normal. IMPRESSION: Laceration deformity with bone loss at the anterior mid shaft of the distal phalanx of th e right thumb.
[2021-03-09] MEDS ORDERED: ceFAZolin 1,000 MG VIAL (IM USE) IM STA (23:35)
[2021-03-10] MEDS ORDERED: ACET/COD 300 MG/30 MG STARTER PACK 6 TAB BTL PO STA (00:42)
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
[2021-03-10 01:15] VITALS: BP 148/84; PULSE 80; RESP 20; TEMP 98.2
== END 2021-03-10 01:15 | disposition home or self-care (01) ==
LOC: EC 22:39
DX: S62.521B Displaced fracture of distal phalanx of right thumb, initial encounter for open fracture (principal); E11.36 Type 2 diabetes mellitus with diabetic cataract; I25.10 Atherosclerotic heart disease of native coronary artery without angina pectoris; I25.2 Old myocardial infarction; I50.9 Heart failure, unspecified; J44.9 Chronic obstructive pulmonary disease, unspecified; K21.9 Gastro-esophageal reflux disease without esophagitis; F41.9 Anxiety disorder, unspecified; Z79.02 Long term (current) use of antithrombotics/antiplatelets; Z79.51 Long term (current) use of inhaled steroids; Z79.82 Long term (current) use of aspirin; Z79.84 Long term (current) use of oral hypoglycemic drugs; Z80.1 Family history of malignant neoplasm of trachea, bronchus and lung; Z82.49 Family history of ischemic heart disease and other diseases of the circulatory system; Z87.891 Personal history of nicotine dependence; Z88.2 Allergy status to sulfonamides; Z88.8 Allergy status to other drugs, medicaments and biological substances; Z95.0 Presence of cardiac pacemaker; Z23 Encounter for immunization; Z79.899 Other long term (current) drug therapy; W27.0XXA Contact with workbench tool, initial encounter
CPT/HCPCS: 73140; 90715; 12001; 90471; 99283; 96372; J0690; J2001

== ENCOUNTER 2022-04-16 17:31 | Observation (INO) | payer MEDICARE ==
[2022-04-16 17:56] LABS: Glucose,Whole Blood 130 mg/dL (70-110)
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
--- NOTE | 2022-04-16 18:32 | CT ---
EXAMINATION TYPE: CT brain wo con for TPA DATE OF EXAM: 04/16/2022 COMPARISON: 02/11/2015 HISTORY: Neuro deficit, acute, stroke suspected CT DLP: 1206.6 mGycm Automated exposure control for dose reduction was used. Images of the brain obtained with no contrast. There is cerebral cortical atrophy. There is no mass effect or midline shift. No sign of intracranial hemorrhage. Calvarium is intact. IMPRESSION: Cerebral atrophy. No acute intracranial abnormality. No adverse change.
[2022-04-16 18:57] LABS: Basophils % (A) 0 %; Eosinophils # (A) 0.2 k/uL (0-0.7); Eosinophils % (A) 2 %; HCT 37.6 % (39.0-53.0); HGB 13.1 gm/dL (13.0-17.5); Lymphocytes # (A) 2.1 k/uL (1.0-4.8); Lymphocytes % (A) 20 %; MCH 33.2 pg (25.0-35.0); MCHC 34.7 g/dL (31.0-37.0); MCV 95.7 fL (80.0-100.0); Mean Platelet Volume 7.5; Monocytes # (A) 0.5 k/uL (0-1.0); Monocytes % (A) 5 %; Neutrophils # (A) 7.4 k/uL (1.3-7.7); Neutrophils % (A) 71 %; Platelet Count 264 k/uL (150-450); RBC 3.93 m/uL (4.30-5.90); RDW 11.7 % (11.5-15.5); WBC 10.4 k/uL (3.8-10.6)
--- NOTE | 2022-04-16 19:00 | CT ---
EXAMINATION TYPE: CT angio head neck DATE OF EXAM: 04/16/2022 COMPARISON: None HISTORY: Neuro deficit, acute, stroke suspected, iso 370/65ml injected, prior in pacs CT DLP: 662.5 mGycm Automated exposure control for dose reduction was used. CONTRAST: Performed with IV Contrast, patient injected with 65 mL of Isovue 370. Images obtained from the aortic arch to the vertex of the brain with the IV contrast. There are Three -D postprocessed images. There is normal branching pattern of the great vessels on the aortic arch. There is arterial flow in both subclavian arteries. There is arterial flow in the common internal and external carotid arteries bilaterally. There is moderate calcified plaque at the carotid artery bifurcations and in the common carotid arteries bilaterally. There is estimated 50% stenosis at the origin of the right internal ca rotid artery there is estimated 60% stenosis of the distal left common carotid artery. There is estim ated 25% stenosis origin of the left internal carotid artery. There is arterial flow in both vertebra l arteries. There is arterial flow in the vertebrobasilar artery system. No evidence of carotid or ve rtebral artery aneurysm. There is deformity of the lumen of the distal left common carotid artery marlo t could relate to a chronic dissection. There is arterial flow in the anterior middle and posterior cerebral arteries bilaterally. No mass ef fect. No evidence of intracranial aneurysm or new vascularity. There is normal enhancement of the judy ous sinuses. No evidence of intracranial hemodynamic arterial stenosis. There is moderate calcificati on in the wall of the intracranial internal carotid arteries. IMPRESSION: Extensive atherosclerotic calcification in the intracranial internal carotid arteries without signifi cant stenosis. 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 Ther e is bilateral stenosis at the carotid artery bifurcations as above.
[2022-04-16 19:26] LABS: Albumin 3.9 g/dL (3.5-5.0); Calcium 9.1 mg/dL (8.4-10.2); Potassium 5.9 mmol/L (3.5-5.1); Total Bilirubin 0.5 mg/dL (0.2-1.3); Total Protein 6.5 g/dL (6.3-8.2)
[2022-04-16 19:31] LABS: Partial Thromboplastin Time 24.1 sec (22.0-30.0); Prothrombin Time 10.5 sec (9.0-12.0)
--- NOTE | 2022-04-16 19:38 | XR ---
EXAMINATION TYPE: XR chest 2V DATE OF EXAM: 04/16/2022 COMPARISON: 03/09/2021 HISTORY: Altered mental status TECHNIQUE: 3 views FINDINGS: Heart is normal. Lungs are clear of infiltrate. No heart failure. There are no hilar masses . There are sternal wires. There is left axillary pacemaker. There are chest leads. There is some fla ttening of the diaphragm. IMPRESSION: There is pulmonary hyperinflation and evidence for COPD. No acute lung disease. No signif icant change.
[2022-04-16] MEDS ORDERED: ASPIRIN 325 MG TAB PO STA (19:46)
[2022-04-16] MEDS ORDERED: SODIUM CHLORIDE 0.9% 1,000 ML IV STA (20:10)
[2022-04-16] MEDS ORDERED: DEXTROSE 50% SYRINGE 50 ML IVP ONE (20:11)
[2022-04-16] MEDS ORDERED: ALBUTEROL NEB (CONC) 2.5 MG/0.5 ML INHALATION ONE (20:11)
[2022-04-16] MEDS ORDERED: FUROSEMIDE 10 MG/ML 4 ML VIAL IV STA (20:12)
[2022-04-16] MEDS ORDERED: ALBUTEROL NEBULIZED 2.5 MG/3 ML INHALATION PRN (20:26)
[2022-04-16] MEDS ORDERED: SODIUM CHLORIDE 0.9% 500 ML 500 ML IV STA (20:26)
[2022-04-16] MEDS ORDERED: INSULIN REGULAR 100 UNIT/ML VIAL (IV) IV ONE (20:30)
[2022-04-16 21:53] LABS: Glucose,Whole Blood 95 mg/dL (70-110)
[2022-04-16] MEDS: ISOSORBIDE MONONITRATE ER 60 MG TAB.ER.24H PO SCH (22:19)
[2022-04-16] MEDS: METOPROLOL TARTRATE 50 MG TAB PO SCH (22:19)
[2022-04-16] MEDS: IPRATROPIUM-ALBUTEROL 3 ML NEB INHALATION PRN (23:10)
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
[2022-04-17 02:58] LABS: Appearance,Urine Clear (Clear); Bilirubin,Urine Negative (Negative); Blood,Urine Negative (Negative); Color,Urine Light Yellow; Glucose,Urine (UA) Negative (Negative); Hyaline Casts,Urine 1 /lpf (0-2); Ketones,Urine Negative (Negative); Leukocyte Esterase,Urine Negative (Negative); Mucus,Urine Rare /hpf; Nitrite,Urine Negative (Negative); PH, Urine 5.5 (5.0-8.0); Protein,Urine 2+ (Negative); RBC,Urine <1 /hpf (0-5); Specific Gravity,Urine 1.017 (1.001-1.035); Urobilinogen,Urine <2.0 mg/dL (<2.0); WBC,Urine 2 /hpf (0-5)
[2022-04-17 03:03] LABS: Amphetamine Screen,Urine Not Detected (NotDetected); Barbiturate Screen,Urine Not Detected (NotDetected); Benzodiazepines Screen,Urine Not Detected (NotDetected); Cocaine Screen,Urine Not Detected (NotDetected); Methadone Screen, Urine Not Detected (NotDetected); Opiate Screen,Urine Not Detected (NotDetected); Oxycodone Screen, Urine Not Detected (NotDetected); Phencyclidine Screen,Urine Not Detected (NotDetected); Tricyclic Antidepressant,Urine Not Detected (NotDetected); Urn Cannabinoid Scrn Not Detected (NotDetected)
[2022-04-17] MEDS: ATORVASTATIN 80 MG TAB PO SCH ×2 (04:32→19:45)
[2022-04-17 06:10] LABS: Glucose,Whole Blood 150 mg/dL (70-110)
[2022-04-17] MEDS: INSULIN ASPART (NovoLOG) 100 UNIT/ML VIAL SQ SCH ×4 (06:11→20:54)
[2022-04-17 06:49] LABS: Glucose,Whole Blood 115 mg/dL (70-110)
[2022-04-17] MEDS: IPRATROPIUM-ALBUTEROL 3 ML NEB INHALATION PRN ×3 (07:00→21:44)
[2022-04-17] MEDS: SYMBICORT 160-4.5 MCG INHALER INHALATION SCH ×2 (07:00→19:04)
[2022-04-17] MEDS ORDERED: glipiZIDE 10 MG TAB PO SCH (07:30)
[2022-04-17] MEDS ORDERED: lisinopriL 10 MG TAB PO SCH (09:00)
--- NOTE | 2022-04-17 09:20 | US ---
EXAMINATION TYPE: US carotid duplex BILAT DATE OF EXAM: 04/17/2022 COMPARISON: NONE CLINICAL HISTORY: TIA. TECHNIQUE: Carotid duplex ultrasound examination. Indirect Doppler criteria was utilized. FINDINGS: EXAM MEASUREMENTS: RIGHT: Peak Systolic Velocity (PSV) cm/sec ----- Right CCA: 127 ----- Right ICA: 96.1 ----- Right ECA: 123 ICA/CCA ratio: 0.76 RIGHT: End Diastole cm/sec ----- Right CCA: 21.3 ----- Right ICA: 14.2 ----- Right ECA: 0.0 LEFT: Peak Systolic Velocity (PSV) cm/sec ----- Left CCA: 216 ----- Left ICA: 208 ----- Left ECA: 205 ICA/CCA ratio: 0.96 LEFT: End Diastole cm/sec ----- Left CCA: 37.7 ----- Left ICA: 9.8 ----- Left ECA: 31.2 VERTEBRALS (direction of flow): Right Vertebral: Antegrade Left Vertebral: Antegrade Rhythm: Normal CHASER HELPER NOTES: Significant plaque visualized throughout bilateral carotid arteries, including com mon carotids, disrupting the ratio. IMPRESSION: Atheromatous plaquing with moderate narrowing between 50 and 69% of the left internal carotid artery. Milder narrowing of less than 50% is on the right internal carotid artery. Turbulent flow is present bilaterally. Criteria for Assigning % of Stenosis / Diameter reduction (Estimation based on the indirect measurements of the internal carotid artery velocities (ICA PSV). 1. Normal (no stenosis)=ICA PSV < 125 cm/s: ratio < 2.0: ICA EDV<40 cm/s. 2. Less than 50% stenosis=ICA PSV < 125 cm/s: ratio < 2.0: ICA EDV<40 cm/s. 3. 50 to 69% stenosis=ICA PSV of 125 to 230 cm/s: ration 2.0 ? 4.0: ICA EDV 40-100 cm/s. 4. Greater than 70% stenosis to near occlusion= ICA PSV > 230 cm/s: ratio > 4.0: ICA EDV > 100 cm/s. 5. Near occlusion= ICA PSV velocities may be low or undetectable: variable ratio and ICA EDV. 6. Total occlusion=unable to detect flow.
[2022-04-17] MEDS: METOPROLOL TARTRATE 50 MG TAB PO SCH ×2 (09:31→19:41)
[2022-04-17] MEDS: FENOFIBRATE 160 MG TAB PO SCH (09:31)
[2022-04-17] MEDS: EZETIMIBE 10 MG TAB PO SCH (09:31)
[2022-04-17] MEDS: HEPARIN SODIUM,PORCINE/PF 5,000 UNIT/0.5 ML SYRINGE SQ SCH ×3 (09:31→23:17)
[2022-04-17] MEDS: SPIRONOLACTONE 25 MG TAB PO SCH (09:32)
[2022-04-17] MEDS: CLOPIDOGREL 75 MG TAB PO SCH (09:32)
[2022-04-17] MEDS: ISOSORBIDE MONONITRATE ER 60 MG TAB.ER.24H PO SCH ×2 (10:58→20:15)
[2022-04-17 11:01] LABS: Basophils # (A) 0.03 X 10*3/uL (0.00-0.10); Basophils % (A) 0.3 %; Eosinophils # (A) 0.21 X 10*3/uL (0.04-0.35); Eosinophils % (A) 2.4 %; HCT 36.8 % (39.6-50.0); HGB 12.7 g/dL (13.0-17.0); Immature Grans, Automated 0.2 %; Lymphocytes # (A) 2.96 X 10*3/uL (0.90-5.00); Lymphocytes % (A) 33.8 %; MCH 33.7 pg (27.0-32.0); MCHC 34.5 g/dL (32.0-37.0); MCV 97.6 fL (80.0-97.0); Mean Platelet Volume 9.6 fL (9.5-12.2); Monocytes % (A) 9.1 %; NRBC Per 100 WBC 0 /100 WBCS (0.0-0.0); Neutrophils # (A) 4.73 X 10*3/uL (1.80-7.70); Neutrophils % (A) 54.2 %; Platelet Count 254 X 10*3/uL (140-440); RBC 3.77 X 10*6/uL (4.40-5.60); RDW 11.9 % (11.5-14.5); WBC 8.75 X 10*3/uL (4.50-10.00)
[2022-04-17 11:27] LABS: African American GFR (CKD) 47.3 (60.0-200.0); BUN/Creat Ratio 19.94 Ratio (12.00-20.00); Blood Urea Nitrogen 33.9 mg/dL (9.0-27.0); Calcium 9.5 mg/dL (8.7-10.3); Carbon Dioxide 25.1 mmol/L (20.0-27.5); Chloride 103 mmol/L (96-109); Chol/HDL Ratio 3.88 Ratio; Glucose 110 mg/dL (70-110); LDL Cholesterol,Calculated 76.9 mg/dL (0.0-131.0); Non-African American GFR(CKD) 40.8 (60.0-200.0); Potassium 4.4 mmol/L (3.5-5.5); Sodium 140 mmol/L (135-145)
[2022-04-17 11:54] LABS: Glucose,Whole Blood 165 mg/dL (70-110)
--- NOTE | 2022-04-17 12:07 | CA ---
Transthoracic Echo Report Name: Anselmo Flynn Age: 66 Gender: M : 1955 Exam Date: 04/17/2022 09:37 Exam Location: [place] [facility] Ht (in): 73 Wt (lb): 195 Ordering Physician: Matt White MD Attending/Referring Phys: Motor Vehicle Assembler Allyson Street RDCS Procedure CPT: Indications: tia Cardiac Hx: Technical Quality: Technically difficult study Contrast 1: Lumason Total Dose (mL): 3 Contrast 2: Total Dose (mL): MEASUREMENTS (Male / Female) Normal Values 2D ECHO LV Diastolic Diameter PLAX 4.1 cm 4.2 - 5.9 / 3.9 - 5.3 cm LV Systolic Diameter PLAX 2.7 cm IVS Diastolic Thickness 1.3 cm 0.6 - 1.0 / 0.6 - 0.9 cm LVPW Diastolic Thickness 1.4 cm 0.6 - 1.0 / 0.6 - 0.9 cm LV Relative Wall Thickness 0.6 RV Internal Dim ED PLAX 3.5 cm LA Systolic Diameter LX 3.3 cm 3.0 - 4.0 / 2.7 - 3.8 cm LA Volume 48.2 cm??? 18 - 58 / 22 - 52 cm??? M-MODE Aortic Root Diameter MM 4.0 cm MV E Point Septal Separation 1.3 cm DOPPLER AV Peak Velocity 137.0 cm/s AV Peak Gradient 7.5 mmHg MV Area PHT 3.2 cm??? Mitral E Point Velocity 88.5 cm/s Mitral A Point Velocity 79.3 cm/s Mitral E to A Ratio 1.1 MV Deceleration Time 240.4 ms MV E' Velocity 6.5 cm/s Mitral E to MV E' Ratio 13.7 TR Peak Velocity 255.5 cm/s TR Peak Gradient 26.1 mmHg Right Ventricular Systolic Press 31.1 mmHg FINDINGS Left Ventricle Left ventricular ejection fraction is estimated at 40-45 %. Left ventricular cavity size normal. Moderate concentric left ventricular hypertrophy. Right Ventricle Mild right ventricular dilatation. Mild pulmonary hypertension. Right Atrium Normal right atrial size. Left Atrium Normal left atrial size. No evidence for an atrial septal defect. Mitral Valve Mitral valve not well visualized. No mitral stenosis, regurgitation or prolapse. Mitral annular calcification. Aortic Valve Aortic valve not well visualized. No aortic valve stenosis or regurgitation. Tricuspid Valve Tricuspid valve not well visualized. No tricuspid stenosis or prolapse. Pulmonic Valve Pulmonic valve not well visualized. Pericardium Normal pericardium. No pericardial effusion. Aorta Moderate aortic dilatation at the level of the sinuses of valsalva 40 mm CONCLUSIONS Extremely difficult study for interpretation with poorly visualized endocardium an intracardiac valves The LV systolic function is impaired with EF between 40-45% Previewed by: Dr. Wiley High MD (Electronically Signed) Final Date: 17 April 2022 12:06
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
--- NOTE | 2022-04-17 15:01 | P.PN ---
Subjective Progress Note Date: 04/17/22 The patient is a 66-year-old male with a PMH of coronary artery disease, systolic CHF EF 30%, status post ICD hypertension, hyperlipidemia who present to the emergency room with complaints of dizziness and slurred speech. The reports that he was in his usual state of health and was sitting at home on a chair working on his computer when he suddenly developed tunnel vision and and dizziness at around 4:15 PM. His returned home at 4:30 p.m. and found him to have slurred speech and ongoing dizziness. He reported feeling at his baseline at the time of interview. Code stroke was activated in the emergency room upon patient's arrival. 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 Chest x-ray was unremarkable. EKG revealed a paced rhythm at 60 bpm with a right bundle branch block and left and left anterior fascicular block. Laboratory evaluation was remarkable for potassium 5.9 and creatinine 1.5 (baseline 1.0). With regard to his slurred speech and dizziness, neurology was consulted. Neurology recommended vascular surgery consult for findings on CT head and neck, stop aspirin, start Plavix 75 mg by mouth daily and continue Lipitor 80 mg by mouth at bedtime. Neurology recommended against MRI brain is it would not change manager. Patient has a AICD and pacemaker which would contraindicate him for MRI brain as well. Lipid panel showed T. Chol 161, TG 213, VLDL 42.6, HDL of 41.5. Carotid Doppler showed 50-69% left internal carotid stenosis, less than 50% on the right internal carotid artery. Echocardiogram shows EF of 40-45% with moderate concentric LVH. Vascular surgery recommended CTA head and neck requesting 2 mm slice. The case was discussed with Pao HARDING who stated vascular surgery has cleared the patient for discharge with outpatient follow up. With regard to the patient's hyperkalemia and ROHAN, patient was given hyperkal emia cocktail in the ED (albuterol, Lasix, IV insulin/D50). Repeat potassium was 4.4. Lisinopril was held as well. However, his creatinine worsened from 1.5 to 1.7. This was thought to be contrast induced. Renal ultrasound was ordered and pending at the time of this note. Patient was seen and examined. No acute events overnight. Patient reports complete resolution of slurred speech and dizziness. General: non toxic, no distress, appears at stated age, normal weight Derm: no unusual rashes/lesions, warm Head: atraumatic, normocephalic, symmetric Eyes: EOMI, no lid lag, anicteric sclera ENT: Nose and ears atraumatic Neck: No cervical lymphadenopathy, trachea midline, supple Mouth: no lip lesion, mucus membranes moist Cardiovascular: S1S2 reg, no murmur, no edema Lungs: CTA bilateral, no rhonchi, no rales, no accessory muscle use Ext: muscle strength 5 out of 5 in all 4 extremities grossly, no gross muscle atrophy, no contractures, Neuro: no gross focal neuro deficits Psych: Alert, oriented, appropriate affect Assessment/plan Dizziness and slurred speech, suspected TIA -Echocardiogram shows EF of 40-45% with moderate concentric LVH -Cardiac monitoring -Neurology on board -Continue Plavix and statin, fenofibrate -Neurochecks -Fall precautions Acute kidney injury -Likely worsened by contrast -Follow renal and bladder US -Judicious use of IV fluids in setting of CHF history -Continue normal saline at 75 mL per hour -Hold Lisinopril -Monitor BMP Chronic conditions: CHF, COPD, type II DM, hypertension -Continue with home meds -Insulin sliding scale and blood glucose monitoring Resolved: Hyperkalemia Renal function slightly worsened today. Renal/Ballder US ordered. Continue IVF and repeat BMP tomorrow morning. Anticipate discharge tomorrow with renal function stable. Objective - Vital Signs Vital signs: Vital Signs Temp 98.1 F 04/17/22 13:37 Pulse 64 04/17/22 13:37 Resp 14 04/17/22 13:37 BP 120/64 04/17/22 13:37 Pulse Ox 97 04/17/22 13:37 FiO2 21 04/16/22 23:12 Intake & Output 04/16/22 04/17/22 04/17/22 18:59 06:59 18:59 Intake Total 236 Balance 236 Weight 88.451 kg 88.451 kg Intake: Oral 236 Other: # Voids 1 2 - Labs CBC & Chem 7: 04/17/22 06:30 04/17/22 06:30 Labs: Abnormal Lab Results - Last 24 Hours (Table) 04/16/22 04/16/22 04/16/22 Range/Units 17:52 18:35 18:35 RBC 3.93 L (4.30-5.90) m/uL Hgb (13.0-17.0) g/dL Hct 37.6 L (39.0-53.0) % MCV (80.0-97.0) fL MCH (27.0-32.0) pg Sodium 135 L (137-145) mmol/L Potassium 5.9 H (3.5-5.1) mmol/L BUN 33 H (9-20) mg/dL Creatinine 1.50 H (0.66-1.25) mg/dL Est GFR (CKD-EPI)AfAm (60.0-200.0) Est GFR (CKD-EPI)NonAf (60.0-200.0) Glucose 122 H (74-99) mg/dL POC Glucose (mg/dL) 130 H (70-110) mg/dL Hemoglobin A1c (0.0-6.0) % Triglycerides (0.00-149.00) mg/dL VLDL Cholesterol, Calc (5.00-40.00) mg/dL Urine Protein (Negative) Urine Mucus (None) /hpf 04/17/22 04/17/22 04/17/22 Range/Units 02:30 06:08 06:30 RBC (4.30-5.90) m/uL Hgb (13.0-17.0) g/dL Hct (39.0-53.0) % MCV (80.0-97.0) fL MCH (27.0-32.0) pg Sodium (137-145) mmol/L Potassium (3.5-5.1) mmol/L BUN 33.9 H (9-20) mg/dL Creatinine 1.7 H (0.66-1.25) mg/dL Est GFR (CKD-EPI)AfAm 47.3 L (60.0-200.0) Est GFR (CKD-EPI)NonAf 40.8 L (60.0-200.0) Glucose (74-99) mg/dL POC Glucose (mg/dL) 150 H (70-110) mg/dL Hemoglobin A1c (0.0-6.0) % Triglycerides 213.00 H (0.00-149.00) mg/dL VLDL Cholesterol, Calc 42.60 H (5.00-40.00) mg/dL Urine Protein 2+ H (Negative) Urine Mucus Rare H (None) /hpf 04/17/22 04/17/22 04/17/22 Range/Units 06:30 06:30 06:48 RBC 3.77 L (4.30-5.90) m/uL Hgb 12.7 L (13.0-17.0) g/dL Hct 36.8 L (39.0-53.0) % MCV 97.6 H (80.0-97.0) fL MCH 33.7 H (27.0-32.0) pg Sodium (137-145) mmol/L Potassium (3.5-5.1) mmol/L BUN (9-20) mg/dL Creatinine (0.66-1.25) mg/dL Est GFR (CKD-EPI)AfAm (60.0-200.0) Est GFR (CKD-EPI)NonAf (60.0-200.0) Glucose (74-99) mg/dL POC Glucose (mg/dL) 115 H (70-110) mg/dL Hemoglobin A1c 6.8 H (0.0-6.0) % Triglycerides (0.00-149.00) mg/dL VLDL Cholesterol, Calc (5.00-40.00) mg/dL Urine Protein (Negative) Urine Mucus (None) /hpf 04/17/22 Range/Units 11:52 RBC (4.30-5.90) m/uL Hgb (13.0-17.0) g/dL Hct (39.0-53.0) % MCV (80.0-97.0) fL MCH (27.0-32.0) pg Sodium (137-145) mmol/L Potassium (3.5-5.1) mmol/L BUN (9-20) mg/dL Creatinine (0.66-1.25) mg/dL Est GFR (CKD-EPI)AfAm (60.0-200.0) Est GFR (CKD-EPI)NonAf (60.0-200.0) Glucose (74-99) mg/dL POC Glucose (mg/dL) 165 H (70-110) mg/dL Hemoglobin A1c (0.0-6.0) % Triglycerides (0.00-149.00) mg/dL VLDL Cholesterol, Calc (5.00-40.00) mg/dL Urine Protein (Negative) Urine Mucus (None) /hpf
--- NOTE | 2022-04-17 15:47 | US ---
EXAMINATION TYPE: US renals and bladder DATE OF EXAM: 04/17/2022 COMPARISON: NONE CLINICAL HISTORY: Elevated Cr. EXAM MEASUREMENTS: Right Kidney: 12.4 x 7.3 x 5.7 cm Left Kidney: 12.1 x 7.0 x 5.5 cm Right Kidney: No hydronephrosis, nephrolithiasis or masses seen, echogenic sinus, measures large Left Kidney: No hydronephrosis, nephrolithiasis or masses seen, echogenic sinus, measures large Bladder: wnl Renal cortex preserved. IMPRESSION: No hydronephrosis or nephrolithiasis.
[2022-04-17 16:23] LABS: Glucose,Whole Blood 113 mg/dL (70-110)
[2022-04-17] MEDS: SODIUM CHLORIDE 0.9% 1,000 ML IV SCH (17:23)
[2022-04-17 20:47] LABS: Glucose,Whole Blood 130 mg/dL (70-110)
[2022-04-17] MEDS ORDERED: ASPIRIN 81 MG PO SCH (21:00)
[2022-04-18] MEDS: IPRATROPIUM-ALBUTEROL 3 ML NEB INHALATION PRN ×2 (05:23→11:23)
[2022-04-18] MEDS: SODIUM CHLORIDE 0.9% 1,000 ML IV SCH (05:28)
[2022-04-18 06:45] LABS: Glucose,Whole Blood 124 mg/dL (70-110)
[2022-04-18] MEDS: INSULIN ASPART (NovoLOG) 100 UNIT/ML VIAL SQ SCH (06:52)
[2022-04-18 08:00] VITALS: BP 133/74; RESP 16; TEMP 97.7
[2022-04-18] MEDS: SYMBICORT 160-4.5 MCG INHALER INHALATION SCH (08:33)
[2022-04-18 08:50] LABS: Anion Gap 11.3 mmol/L (10.00-18.00); BUN/Creat Ratio 23.2 Ratio (12.00-20.00); Blood Urea Nitrogen 34.8 mg/dL (9.0-27.0); Calcium 9.3 mg/dL (8.7-10.3); Carbon Dioxide 23.7 mmol/L (20.0-27.5); Non-African American GFR(CKD) 47.5 (60.0-200.0); Potassium 4.5 mmol/L (3.5-5.5)
[2022-04-18] MEDS: ISOSORBIDE MONONITRATE ER 60 MG TAB.ER.24H PO SCH (09:55)
[2022-04-18] MEDS: CLOPIDOGREL 75 MG TAB PO SCH (09:55)
[2022-04-18] MEDS: HEPARIN SODIUM,PORCINE/PF 5,000 UNIT/0.5 ML SYRINGE SQ SCH (09:55)
[2022-04-18] MEDS: METOPROLOL TARTRATE 50 MG TAB PO SCH (09:56)
[2022-04-18] MEDS: FENOFIBRATE 160 MG TAB PO SCH (09:56)
[2022-04-18] MEDS: EZETIMIBE 10 MG TAB PO SCH (09:56)
[2022-04-18] MEDS: SPIRONOLACTONE 25 MG TAB PO SCH (09:58)
--- NOTE | 2022-04-18 10:21 | P.DS ---
Providers Date of admission: 04/16/22 19:54 Expected date of discharge: 04/18/22 Attending physician: Angie Rincon MD Consults: 04/16/22 19:54 Consult Physician Routine Consulting Provider: Stevie Sherman Consult Reason/Comments: TIA Do you want consulting provider notified?: Yes, Notify in am 04/17/22 09:03 Consult Physician Routine Consulting Provider: Em Lau Consult Reason/Comments: ?carotid dissection Do you want consulting provider notified?: Yes Primary care physician: [facility] Course: The patient is a 66-year-old male with a PMH of coronary artery disease, systolic CHF EF 30%, status post ICD hypertension, hyperlipidemia who present to the emergency room with complaints of dizziness and slurred speech. The reports that he was in his usual state of health and was sitting at home on a chair working on his computer when he suddenly developed tunnel vision and and dizziness at around 4:15 PM. His returned home at 4:30 p.m. and found him to have slurred speech and ongoing dizziness. He reported feeling at his baseline at the time of interview. Code stroke was activated in the emergency room upon patient's arrival. 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 Chest x-ray was unremarkable. EKG revealed a paced rhythm at 60 bpm with a right bundle branch block and left and left anterior fascicular block. Laboratory evaluation was remarkable for potassium 5.9 and creatinine 1.5 (baseline 1.0). With regard to his slurred speech and dizziness, neurology was consulted. Neurology recommended vascular surgery consult for findings on CT head and neck, stop aspirin, start Plavix 75 mg by mouth daily and continue Lipitor 80 mg by mouth at bedtime. Neurology recommended against MRI brain is it would not pipe changer. Patient has a AICD and pacemaker which would contraindicate him for MRI brain as well. Lipid panel showed T. Chol 161, TG 213, VLDL 42.6, HDL of 41.5. Carotid Doppler showed 50-69% left internal carotid stenosis, less than 50% on the right internal carotid artery. Echocardiogram shows EF of 40-45% with moderate concentric LVH. Vascular surgery recommended CTA head and neck requesting 2 mm slice. The case was discussed with Pao HARDING who stated vascular surgery has cleared the patient for discharge with outpatient follow up. With regard to the patient's hyperkalemia and ROHAN, patient was given hyperkalemia cocktail in the ED (albuterol, Lasix, IV insulin/D50). Repeat potassium was 4.4. Lisinopril was held as well. However, his creatinine worsened from 1.5 to 1.7. This was thought to be contrast induced. Renal ultrasound was negative for obstruction. Repeat BMP showed potassium of 4.5 and creatinine of 1.5. Patient was seen and examined. No acute events overnight. Patient reports complete resolution of slurred speech and dizziness. Patient is advised to follow-up with vascular surgery within 1 week of discharge. He is advised to follow-up with neurology within 1 week of discharge. Aspirin will be discontinued and patient will be prescribed Plavix and Lipitor on discharge. Patient verbalized understanding of the plan. Pertinent studies include brain CT, CTA head and neck, carotid Doppler, echocardiogram, renal ultrasound. General: non toxic, no distress, appears at stated age, normal weight Derm: no unusual rashes/lesions, warm Head: atraumatic, normocephalic, symmetric Eyes: EOMI, no lid lag, anicteric sclera ENT: Nose and ears atraumatic Neck: No cervical lymphadenopathy, trachea midline, supple Mouth: no lip lesion, mucus membranes moist Cardiovascular: S1S2 reg, no murmur, no edema Lungs: CTA bilateral, no rhonchi, no rales, no accessory muscle use Ext: muscle strength 5 out of 5 in all 4 extremities grossly, no gross muscle atrophy, no contractures, Neuro: no gross focal neuro deficits Psych: Alert, oriented, appropriate affect Discharge diagnosis: Dizziness and slurred speech, suspected TIA Acute kidney injury Chronic conditions: CHF, COPD, type II DM, hypertension Resolved: Hyperkalemia Patient Condition at Discharge: Stable Plan - Discharge Summary Discharge Rx Participant: No New Discharge Prescriptions: No Action Omeprazole [PriLOSEC] 20 mg PO DAILY Fish Oil/Dha/Epa [Fish Oil 1,200 mg Fish Oil] 1 cap PO BID Albuterol Sulfate [Proair Hfa] 2 puff INHALATION RT-Q6H PRN PRN Reason: Shortness Of Breath Multivitamin [Men's Multi-Vitamin] 1 tab PO DAILY lisinopriL [Zestril] 10 mg PO DAILY gemfibroziL [Lopid] 600 mg PO AC-BID Ubidecarenone [Co Q-10] 100 mg PO DAILY Aspirin 81 mg PO HS Isosorbide Mononitrate ER [Imdur] 60 mg PO BID Nitroglycerin Sl Tabs [Nitrostat] 0.4 mg SUBLINGUAL Q5M PRN tab PRN Reason: Chest Pain glipiZIDE XL [Glucotrol XL] 10 mg PO BID Ipratropium-Albuterol Nebulize [Duoneb 0.5 mg-3 mg/3 ml Soln] 3 ml INHALATION RT-Q6H PRN PRN Reason: Shortness Of Breath Fluticasone Propion/Salmeterol [Fluticasone-Salmeterol 500-50] 1 puff IN HALATION RT-BID Metoprolol Tartrate [Lopressor] 100 mg PO BID Spironolactone [Aldactone] 25 mg PO DAILY Ranolazine [Ranolazine ER] 500 mg PO BID Ezetimibe [Zetia] 10 mg PO DAILY ALPRAZolam [Xanax] 0.25 mg PO BID PRN PRN Reason: Anxiety Discharge Medication List Fish Oil/Dha/Epa [Fish Oil 1,200 mg Fish Oil] 1 cap PO BID 10/07/13 [History] Omeprazole [PriLOSEC] 20 mg PO DAILY 10/07/13 [History] Albuterol Sulfate [Proair Hfa] 2 puff INHALATION RT-Q6H PRN 03/01/15 [History] Aspirin 81 mg PO HS 03/01/15 [History] Multivitamin [Men's Multi-Vitamin] 1 tab PO DAILY 03/01/15 [History] Ubidecarenone [Co Q-10] 100 mg PO DAILY 03/01/15 [History] gemfibroziL [Lopid] 600 mg PO AC-BID 03/01/15 [History] lisinopriL [Zestril] 10 mg PO DAILY 03/01/15 [History] Isosorbide Mononitrate ER [Imdur] 60 mg PO BID 12/17/17 [History] Nitroglycerin Sl Tabs [Nitrostat] 0.4 mg SUBLINGUAL Q5M PRN tab 07/14/19 [Rx] glipiZIDE XL [Glucotrol XL] 10 mg PO BID 06/21/20 [History] Metoprolol Tartrate [Lopressor] 100 mg PO BID 12/24/20 [History] Fluticasone Propion/Salmeterol [Fluticasone-Salmeterol 500-50] 1 puff INHALATION RT-BID 03/09/21 [History] Ipratropium-Albuterol Nebulize [Duoneb 0.5 mg-3 mg/3 ml Soln] 3 ml INHALATION RT-Q6H PRN 03/09/21 [History] ALPRAZolam [Xanax] 0.25 mg PO BID PRN 04/16/22 [History] Ezetimibe [Zetia] 10 mg PO DAILY 04/16/22 [History] Ranolazine [Ranolazine ER] 500 mg PO BID 04/16/22 [History] Spironolactone [Aldactone] 25 mg PO DAILY 04/16/22 [History] Follow up Appointment(s)/Referral(s): Sammy Quinn MD [Primary Care Provider] - 1-2 days Addison Gustafson DO [Doctor of Osteopathic Medicine] - 2 Weeks
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
[2022-04-18 11:41] VITALS: PULSE 68
--- NOTE | 2022-04-18 12:11 | P.PN ---
Subjective Progress Note Date: 04/18/22 Principal diagnosis: Possible left common carotid artery dissection The patient was seen and examined today. He denies any complaints or any acute changes through the night. He states he has no focal deficits. Vision is normal, speech is clear. Patient had some worsening of his kidney function therefore was not discharge, he is on gentle IV fluids. Morning labs currently pending. CT angiogram head and neck was reconstructed in the 2 mm slice. Reviewed by Dr. Garvey who believes there could be a possible dissection however this does not warrant any immediate surgical intervention. Further workup to be done outpatient, this was discussed with the patient who is ag reeable. Objective - Vital Signs Vital signs: Vital Signs Temp 97.7 F 04/18/22 07:00 Pulse 65 04/18/22 07:00 Resp 16 04/18/22 07:00 BP 133/74 04/18/22 07:00 Pulse Ox 95 04/18/22 07:00 FiO2 21 04/16/22 23:12 Intake & Output 04/17/22 04/18/22 04/18/22 18:59 06:59 18:59 Intake Total 596 240 Balance 596 240 Intake: Oral 596 240 Other: # Voids 2 2 - Exam General appearance: The patient is alert, oriented, appears in no acute distress. HET: Head is normocephalic and atraumatic. Pupils are equal and reactive. Neck: Supple without lymphadenopathy. Trachea midline. No audible carotid bruit. Heart: Regular. Lungs: Equal expansion, normal respiratory effort. Abdomen: Soft, nontender, nondistended. Extremities: Normal skin color and turgor. No cyanosis, rash, ulceration, clubbing, or edema. Neurological: No focal deficits. Strength and sensation are grossly intact. - Labs CBC & Chem 7: 04/17/22 06:30 04/18/22 05:13 Labs: Abnormal Lab Results - Last 24 Hours (Table) 04/17/22 04/17/22 04/17/22 Range/Units 06:30 06:30 11:52 BUN 33.9 H (9.0-27.0) mg/dL Creatinine 1.7 H (0.6-1.5) mg/dL Est GFR (CKD-EPI)AfAm 47.3 L (60.0-200.0) Est GFR (CKD-EPI)NonAf 40.8 L (60.0-200.0) BUN/Creatinine Ratio (12.00-20.00) Ratio POC Glucose (mg/dL) 165 H (70-110) mg/dL Hemoglobin A1c 6.8 H (0.0-6.0) % Triglycerides 213.00 H (0.00-149.00) mg/dL VLDL Cholesterol, Calc 42.60 H (5.00-40.00) mg/dL 04/17/22 04/17/22 04/18/22 Range/Units 16:21 20:45 05:13 BUN 34.8 H (9.0-27.0) mg/dL Creatinine (0.6-1.5) mg/dL Est GFR (CKD-EPI)AfAm 55.0 L (60.0-200.0) Est GFR (CKD-EPI)NonAf 47.5 L (60.0-200.0) BUN/Creatinine Ratio 23.20 H (12.00-20.00) Ratio POC Glucose (mg/dL) 113 H 130 H (70-110) mg/dL Hemoglobin A1c (0.0-6.0) % Triglycerides (0.00-149.00) mg/dL VLDL Cholesterol, Calc (5.00-40.00) mg/dL 04/18/22 Range/Units 06:42 BUN (9.0-27.0) mg/dL Creatinine (0.6-1.5) mg/dL Est GFR (CKD-EPI)AfAm (60.0-200.0) Est GFR (CKD-EPI)NonAf (60.0-200.0) BUN/Creatinine Ratio (12.00-20.00) Ratio POC Glucose (mg/dL) 124 H (70-110) mg/dL Hemoglobin A1c (0.0-6.0) % Triglycerides (0.00-149.00) mg/dL VLDL Cholesterol, Calc (5.00-40.00) mg/dL Assessment and Plan Assessment: 1. Visual changes, slurred speech now resolved 2. Possible chronic dissection anterior wall of left distal common carotid artery per CT angiogram head and neck 3. 50-69% stenosis left ICA, less than 50% stenosis right ICA per carotid duplex 4. Likely TIA 5. Current occasional smoker with history of daily tobacco abuse 6. History of coronary artery disease status post CABG, defibrillator placement in cardiac stents 7. History of hypertension and hyperlipidemia 8. Claudication bilateral lower extremities Plan: 1. Continue aspirin, recommend Plavix, patient currently on Zetia, consider trial of low-dose statin 2. Reconstructed CTA head and neck reviewed, possible dissection however, there is no indication for any acute vascular surgical intervention. Patient to follow-up outpatient for further surveillance and management. Thank you for this consultation, patient is cleared for discharge from vascular surgery. The impression and plan of care has been dictated as directed. Dr. Garvey I performed a history and examination of this patient, discussed the same with the dictator. I agree with the dictator's note ,documented as a scribe. Any additional findings or plans will be noted.
== END 2022-04-18 12:11 | disposition home or self-care (01) ==
LOC: EC 17:31 → 6NMEDSUR 19:54
PROVIDERS: ADMIT Internal Medicine; ATTEND Internal Medicine
DX: R42 Dizziness and giddiness (principal); R47.81 Slurred speech; N17.9 Acute kidney failure, unspecified; E87.5 Hyperkalemia; E87.0 Hyperosmolality and hypernatremia; I11.0 Hypertensive heart disease with heart failure; I50.22 Chronic systolic (congestive) heart failure; E78.5 Hyperlipidemia, unspecified; I25.10 Atherosclerotic heart disease of native coronary artery without angina pectoris; J44.9 Chronic obstructive pulmonary disease, unspecified; I25.2 Old myocardial infarction; I45.2 Bifascicular block; I42.9 Cardiomyopathy, unspecified; E11.51 Type 2 diabetes mellitus with diabetic peripheral angiopathy without gangrene; K21.9 Gastro-esophageal reflux disease without esophagitis; G31.9 Degenerative disease of nervous system, unspecified; F41.9 Anxiety disorder, unspecified; I65.23 Occlusion and stenosis of bilateral carotid arteries; I27.20 Pulmonary hypertension, unspecified; E11.42 Type 2 diabetes mellitus with diabetic polyneuropathy; Z95.1 Presence of aortocoronary bypass graft; Z79.82 Long term (current) use of aspirin; Z79.899 Other long term (current) drug therapy; Z79.84 Long term (current) use of oral hypoglycemic drugs; Z88.2 Allergy status to sulfonamides; Z95.810 Presence of automatic (implantable) cardiac defibrillator; Z89.022 Acquired absence of left finger(s); Z98.42 Cataract extraction status, left eye; Z98.41 Cataract extraction status, right eye; Z82.49 Family history of ischemic heart disease and other diseases of the circulatory system; Z80.1 Family history of malignant neoplasm of trachea, bronchus and lung; Z88.8 Allergy status to other drugs, medicaments and biological substances; Z79.02 Long term (current) use of antithrombotics/antiplatelets
CPT/HCPCS: 96361 ×3; 96372 ×2; 96374; 96375; 99285; 36415; 94640 ×5; 94760; 93005; 97162; 97166; 80061; 80053; 80048 ×2; 84484; 85025 ×2; 85610; 85730; 81001; 80306; 83036; 71046; 76770; 93880; 70496; 70450; 70498; G0378 ×3; C8929; J1940; Q9950; Q9967; J1644 ×2; 93306

== ENCOUNTER 2022-06-24 05:46 | Day surgery (SDC) | payer MEDICARE ==
[2022-06-19 13:55] VITALS: BMI 27.4
[~2022-06-24 05:46] MED LIST changes: +ALPRAZolam 0.25 MG TAB PO PRN; +ALPRAZolam 0.5 MG TAB PO PRN; -HYDROmorphone 0.5 MG/0.5 ML SYRINGE IVP PRN; -MIDAZOLAM 2 MG/2 ML VIAL IV PRN; +SODIUM CHLORIDE 0.9% 1,000 ML in EMPTY BAG 1 BAG IV ONE; -ceFAZolin 1 GM in SODIUM CHLORIDE 0.9% 250 ML IRRIGATION PRN
[2022-06-24] MEDS ORDERED: SODIUM CHLORIDE 0.9% 1,000 ML IV ONE (06:06)
[2022-06-24 06:26] LABS: Glucose,Whole Blood 252 mg/dL (70-110)
[2022-06-24 06:36] VITALS: RESP 16; TEMP 98.3
[2022-06-24] MEDS ORDERED: INSULIN ASPART (NovoLOG) 100 UNIT/ML VIAL SQ ONE (06:38)
[2022-06-24] MEDS ORDERED: ASPIRIN 325 MG TAB PO PRN (07:00)
[2022-06-24] MEDS ORDERED: fentaNYL (PF) 50 MCG/ML 2 ML AMP ONE (07:23)
[2022-06-24] MEDS ORDERED: VERAPAMIL 2.5 MG/ML 2 ML AMP ONE (07:43)
[2022-06-24] MEDS ORDERED: MIDAZOLAM 2 MG/2 ML VIAL IV ONE (07:46)
[2022-06-24] MEDS ORDERED: LIDOCAINE 1% INJ 10MG/ML (5 ML VIAL-PF) SQ ONE (07:46)
[2022-06-24] MEDS ORDERED: fentaNYL (PF) 50 MCG/ML 2 ML AMP IV ONE (07:46)
[2022-06-24] MEDS ORDERED: VERAPAMIL SYRINGE (5 MG/10 ML) INTRAARTER ONE (07:50)
[2022-06-24] MEDS ORDERED: HEPARIN SODIUM 1,000 UN/ML (10ML VL) ONE (08:08)
[2022-06-24] MEDS ORDERED: HEPARIN SODIUM 1,000 UN/ML (10ML VL) IV ONE (08:10)
[2022-06-24] MEDS ORDERED: IOPAMIDOL-250 100ML BTL INTRAARTER ONE (08:16)
--- NOTE | 2022-06-24 08:36 | P.PCN ---
Description of Procedure: PROCEDURES PERFORMED: Abdominal angiography with bilateral runoff, pullback across bilateral common iliac arteries INDICATION: Claudication Diya class III with ultrasound showing PAD with concern of bilateral inflow disease CONSENT:I have discussed the risks, benefits and alternative therapies for the above-mentioned procedure and for both sedation/analgesia as well as necessary blood product administration, if indicated, as they pertain to this patient. The patient has indicated understanding and acceptance of the risks and procedures discussed. PROCEDURE: After the risks, benefits and alternatives of the above mentioned procedure explained in detail with the patient, informed consent was obtained. Patient was taken to the catheterization lab and prepped and draped in usual fashion. 1% lidocaine was used to anesthetize the right radial area. A 6- [place] sheath was placed in the right radial artery using modified Seldinger technique. A 5-Colombian pigtail catheter was inserted to the abdominal aorta and DSA imaging was obtained. Patient tolerated the diagnostic portion well. Given somewhat borderline iliac lesions with concern of inflow disease on ultrasound, a 0.035 quick cross catheter was advanced into the bilateral external iliac arteries and pullback was performed. Across the right proximal common iliac there was a 25 mm pressure gradient difference however on the left there was no significant difference. A TR band was placed and hemostasis was achieved. The patient tolerated the procedure well. Patient was transported back to the post catheterization holding area in stable condition. Conscious Sedation: Patient was monitored under the direct supervision of vision of myself for conscious sedation using Versed and fentanyl for a total duration of 35 minutes HEMODYNAMICS: Aorta: 132/63 Abdominal aorta: The abdominal aorta has mild diffuse calcifcation. Renal arteries are patent. There is no significant dissection or aneurysm. There is no significant stenosis. Right lower extremity: Right common iliac artery: There is a proximal right common iliac 70% stenosis with pressure gradient difference of 25 mmHg. Right external iliac artery: There is no significant stenosis. Right internal iliac artery: There is no significant stenosis. Right common femoral artery: There is no significant stenosis. Right profunda: There is no significant stenosis. Right SFA: There is diffuse 50-70% calcified SFA and a more distal right SFA 90% stenosis. Right popliteal artery: There is 100% stenosis of the P1 segment Right tibioperoneal trunk: There is no significant stenosis. Right anterior tibial artery: There is no significant stenosis. Right posterior tibial artery: There is 100% stenosis. Right peroneal artery: There is no significant stenosis. Left lower extremity: Left common iliac artery: There is a proximal left common iliac 50% stenosis. Left external iliac artery: There is no significant stenosis. Left internal iliac artery: There is 95% left internal iliac stenosis. Left common femoral artery: There is no significant stenosis. Left profunda: There is no significant stenosis. Left SFA: There is diffuse mild to moderate 50% stenosis and a more focal distal left SFA 95% stenosis. Left popliteal artery: There are tandem 90% popliteal stenoses Left tibioperoneal trunk: There is no significant stenosis. Left anterior tibial artery: There is no significant stenosis. Left porterior tibial artery: There is no significant stenosis. Left peroneal artery: There is no significant stenosis. FINAL IMPRESSION: 1. Peripheral arterial disease as described above including right common iliac 70% stenosis, right SFA 90% stenosis, right popliteal 100% stenosis, right posterior tibial 100% stenosis, left common iliac 50% stenosis, left SFA 95% stenosis, left popliteal 90% stenosis 2. CKD PLAN: 1. Aggressive risk factor modification per most recent ACC/AHA guidelines. 2. Consider percutaneous intervention of bilateral SFA, popliteal segments if continues to have claudication.
--- NOTE | 2022-06-24 08:52 | IR ---
EXAMINATION TYPE: IR angio abdominal w runoff DATE OF EXAM: 06/24/2022 COMPARISON: NONE HISTORY: Fluoroscopy time. Fluoroscopy was provided to the referring clinician.
[2022-06-24 16:43] VITALS: BP 149/77; PULSE 61
== END 2022-06-24 12:31 | disposition home or self-care (01) ==
LOC: CATHCVL 05:46
PROVIDERS: ATTEND Internal Medicine
DX: I70.213 Atherosclerosis of native arteries of extremities with intermittent claudication, bilateral legs (principal); I70.0 Atherosclerosis of aorta; I25.5 Ischemic cardiomyopathy; E11.22 Type 2 diabetes mellitus with diabetic chronic kidney disease; I13.0 Hypertensive heart and chronic kidney disease with heart failure and stage 1 through stage 4 chronic kidney disease, or unspecified chronic kidney disease; I50.22 Chronic systolic (congestive) heart failure; N18.9 Chronic kidney disease, unspecified; E11.51 Type 2 diabetes mellitus with diabetic peripheral angiopathy without gangrene; I25.10 Atherosclerotic heart disease of native coronary artery without angina pectoris; Z95.5 Presence of coronary angioplasty implant and graft; Z95.810 Presence of automatic (implantable) cardiac defibrillator; E78.5 Hyperlipidemia, unspecified; Z86.73 Personal history of transient ischemic attack (TIA), and cerebral infarction without residual deficits; I65.29 Occlusion and stenosis of unspecified carotid artery; Z79.51 Long term (current) use of inhaled steroids; Z79.84 Long term (current) use of oral hypoglycemic drugs; Z79.01 Long term (current) use of anticoagulants; Z79.02 Long term (current) use of antithrombotics/antiplatelets; Z79.891 Long term (current) use of opiate analgesic; Z79.899 Other long term (current) drug therapy; Z79.83 Long term (current) use of bisphosphonates; Z79.1 Long term (current) use of non-steroidal anti-inflammatories (NSAID); F17.210 Nicotine dependence, cigarettes, uncomplicated; Z82.49 Family history of ischemic heart disease and other diseases of the circulatory system; Z91.041 Radiographic dye allergy status; Z88.1 Allergy status to other antibiotic agents; Z88.2 Allergy status to sulfonamides; Z88.8 Allergy status to other drugs, medicaments and biological substances
CPT/HCPCS: 36200; 75625; 75716; C1769 ×2; C1894; C1887; J2250; J2001; J3010; J1644; Q9966

== ENCOUNTER → 2022-12-25 | Day surgery (SDC) | payer MEDICARE ==
[2022-12-22 12:27] VITALS: BMI 28.8
[~2022-12-25] MED LIST changes: -ALPRAZolam 0.25 MG TAB PO PRN; -ALPRAZolam 0.5 MG TAB PO PRN; +DEXAMETHASONE SOD PHOSPHATE 4 MG/ML 1 ML VIAL IV ONE; +FAMOTIDINE 20 MG/2 ML VIAL IV PRN; +HYDROmorphone 0.5 MG/0.5 ML SYRINGE IVP PRN; +LACTATED RINGERS 1,000 ML IV SCH; +ONDANSETRON 4 MG/2 ML VIAL IVP ONE; +ONDANSETRON 4 MG/2 ML VIAL IVP PRN; -SODIUM CHLORIDE 0.9% 1,000 ML in EMPTY BAG 1 BAG IV ONE
== END ==
LOC: OR 10:14
PROVIDERS: ATTEND Otolaryngology
DX: Z53.9 Procedure and treatment not carried out, unspecified reason (principal)

== ENCOUNTER 2023-01-15 08:42 | Day surgery (SDC) | payer MEDICARE ==
[2023-01-05 12:12] VITALS: BMI 28.8
[~2023-01-15 08:42] MED LIST changes: -DEXAMETHASONE SOD PHOSPHATE 4 MG/ML 1 ML VIAL IV ONE; -HYDROmorphone 0.5 MG/0.5 ML SYRINGE IVP PRN; -LACTATED RINGERS 1,000 ML IV SCH; -ONDANSETRON 4 MG/2 ML VIAL IVP ONE
[2023-01-15] MEDS ORDERED: LACTATED RINGERS 1,000 ML IV ONE (09:07)
[2023-01-15 09:17] LABS: Glucose,Whole Blood 117 mg/dL (70-110)
[2023-01-15] MEDS ORDERED: MIDAZOLAM 2 MG/2 ML VIAL IVP ONE (09:19)
[2023-01-15] MEDS ORDERED: PROPOFOL 10 MG/ML 20 ML VIAL IV ONE (09:30)
[2023-01-15] MEDS ORDERED: SUCCINYLCHOLINE CHLORIDE 200 MG/10 ML VIAL IV ONE (09:30)
[2023-01-15] MEDS ORDERED: LIDOCAINE 2% INJ 20 MG/ML (2 ML VIAL) ONE (09:30)
[2023-01-15] MEDS ORDERED: fentaNYL (PF) 50 MCG/ML 2 ML AMP ONE (09:30)
[2023-01-15] MEDS ORDERED: LIDOCAINE 1%-EPI 1:100,000 20 ML VIAL SQ ONE (09:40)
[2023-01-15 10:36] VITALS: TEMP 97.5
[2023-01-15 10:39] LABS: Glucose,Whole Blood 114 mg/dL (70-110)
--- NOTE | 2023-01-15 10:53 | P.OP ---
Date of Procedure: 01/15/23 Preoperative Diagnosis: Left ear lesion suspicious Left hard palate mass, 2cm Postoperative Diagnosis: same Procedure(s) Performed: Excision of a 2cm left hard palate mass with mucosal flap closure Punch biopsy left ear Anesthesia: BRANDON Surgeon: Chance Mendoza Estimated Blood Loss (ml): 0 Pathology: other (left ear and left hard palate) Condition: stable Disposition: PACU Indications for Procedure: Patient has a suspicious lesion middle patient has a suspicious lesion left hard palate and left ear Operative Findings: Frozen section left ear probable benign awaiting second opinion. Left hard palate mass removed for permanent section. Description of Procedure: This patient underwent a general inhalation anesthetic by the department of anesthesia. The mouth was opened with the McIvor mouth gag and the hard palate was anesthetized with lidocaine 1% with epinephrine 1 100,000. 10 minutes were allowed wait for full vasoconstrictive effects to take place. With use of a 15 blade the lesion was completely excised with a 15 blade delicate plastic scissors and a Brown-Adson forceps. We sent this for pathology. This was a 2 cm lesion. This left a defect we elevated the lateral and medial aspect and developed a mucosal flap. We closed the mucosal flap deeply with 4-0 Vicryl and the top layer was closed with a 50 rapid Vicryl in a running locking fashion. [place] triangles were removed for the flap placement. Excellent closure of the defect was obtained. We did a punch with a 3 mm punch biopsy and closed that with 50 rapid Vicryl. We sent this for pathology and the pathologist stated that the specimen leaning toward a benign diagnosis but he needs to send out for second opinion for evaluation. Case was closed dressings were placed and the patient will be seen in the office next week.
[2023-01-15 11:36] VITALS: RESP 16
[2023-01-15 11:51] VITALS: BP 120/72; PULSE 68
== END 2023-01-15 12:15 | disposition home or self-care (01) ==
LOC: OR 08:42
PROVIDERS: ATTEND Otolaryngology
DX: D10.39 Benign neoplasm of other parts of mouth (principal); L57.0 Actinic keratosis; M54.30 Sciatica, unspecified side; I25.810 Atherosclerosis of coronary artery bypass graft(s) without angina pectoris; J44.9 Chronic obstructive pulmonary disease, unspecified; I25.2 Old myocardial infarction; I11.9 Hypertensive heart disease without heart failure; E11.9 Type 2 diabetes mellitus without complications; Z79.899 Other long term (current) drug therapy; Z79.84 Long term (current) use of oral hypoglycemic drugs; Z95.5 Presence of coronary angioplasty implant and graft
CPT/HCPCS: 69100; 88305; 88331; 42107; J2250; J0330; J2405; J3010; J2704; J2001

== ENCOUNTER 2023-05-13 06:37 | Day surgery (SDC) | payer MEDICARE ==
[~2023-05-13 06:37] MED LIST changes: +ALPRAZolam 0.25 MG TAB PO PRN; +ASPIRIN 325 MG TAB PO PRN; -FAMOTIDINE 20 MG/2 ML VIAL IV PRN; -ONDANSETRON 4 MG/2 ML VIAL IVP PRN; +SODIUM CHLORIDE 0.9% 1,000 ML in EMPTY BAG 1 BAG IV ONE
[2023-05-13] MEDS ORDERED: SODIUM CHLORIDE 0.9% 1,000 ML IV ONE (07:15)
[2023-05-13 07:28] LABS: Glucose,Whole Blood 108 mg/dL (70-110)
[2023-05-13 07:29] LABS: Basophils % (A) 0 %; Eosinophils # (A) 0.3 k/uL (0-0.7); Eosinophils % (A) 3 %; HCT 38.2 % (39.0-53.0); HGB 13.2 gm/dL (13.0-17.5); Lymphocytes # (A) 2.6 k/uL (1.0-4.8); Lymphocytes % (A) 25 %; MCH 33.3 pg (25.0-35.0); MCHC 34.5 g/dL (31.0-37.0); MCV 96.5 fL (80.0-100.0); Mean Platelet Volume 7.8; Monocytes # (A) 0.7 k/uL (0-1.0); Monocytes % (A) 7 %; Neutrophils # (A) 6.3 k/uL (1.3-7.7); Neutrophils % (A) 62 %; Platelet Count 260 k/uL (150-450); RBC 3.96 m/uL (4.30-5.90); RDW 13.6 % (11.5-15.5); WBC 10.3 k/uL (3.8-10.6)
[2023-05-13 07:44] LABS: African American GFR (CKD) 46 (>60 ml/min/1.73 sqM); Anion Gap 13 mmol/L; Blood Urea Nitrogen 30 mg/dL (9-20); Calcium 9.5 mg/dL (8.4-10.2); Carbon Dioxide 26 mmol/L (22-30); Chloride 103 mmol/L (98-107); Glucose 106 mg/dL (74-99); Non-African American GFR(CKD) 40 (>60 ml/min/1.73 sqM); Potassium 4.1 mmol/L (3.5-5.1); Sodium 142 mmol/L (137-145)
[2023-05-13] MEDS ORDERED: diphenhydrAMINE 50 MG/ML 1 ML VIAL IVP ONE (08:23)
[2023-05-13] MEDS ORDERED: methylPREDNISolone SOD SUCCI 125 MG/2 ML VIAL IV ONE (08:23)
[2023-05-13] MEDS: MIDAZOLAM 2 MG/2 ML VIAL IVP ONE ×2 (08:26→08:30)
[2023-05-13] MEDS: fentaNYL (PF) 50 MCG/ML 2 ML AMP IVP ONE ×2 (08:26→08:30)
[2023-05-13] MEDS ORDERED: LIDOCAINE 1% INJ 10MG/ML (20 ML MDV) SQ ONE (08:26)
[2023-05-13] MEDS: HEPARIN SODIUM 1,000 UN/ML (10ML VL) IV ONE ×5 (09:04→11:36)
[2023-05-13] MEDS ORDERED: SODIUM CHLORIDE 0.9% 500 ML 500 ML with niCARdipine 6.25 MG, NITROGLYCERIN-D5W PMX 0.05... IV ONE ×4 (10:00)
[2023-05-13] MEDS ORDERED: IOPAMIDOL-250 100ML BTL INTRAARTER ONE ×2 (11:37→12:11)
--- NOTE | 2023-05-13 12:15 | IR ---
EXAMINATION TYPE: IR stent intravas non coronary DATE OF EXAM: 05/13/2023 COMPARISON: NONE HISTORY: Fluoroscopy time. Fluoroscopy was provided to the referring clinician.
--- NOTE | 2023-05-13 13:36 | P.PCN ---
Description of Procedure: PROCEDURES PERFORMED: Abdominal angiography with bilateral runoff, WIRE MACHINE OPERATOR and Zilver ROBERT of right SFA with overlapping 6.0 x 140mm x 2, post dilated with a 7.0 mm balloon, IVUS SFA INDICATION: PAD with Diya class III claudication CONSENT:I have discussed the risks, benefits and alternative therapies for the above-mentioned procedure and for both sedation/analgesia as well as necessary blood product administration, if indicated, as they pertain to this patient. The patient has indicated understanding and acceptance of the risks and procedures discussed. PROCEDURE: After the risks, benefits and alternatives of the above mentioned procedure explained in detail with the patient, informed consent was obtained. Patient was taken to the catheterization lab and prepped and draped in usual fashion. 1% lidocaine was used to anesthetize the left femoral area. A 6- Guinean sheath was placed in the left femoral artery using modified Seldinger technique. DSA imaging was obtained of the left SFA through the 6-Guinean sheath. Next a 5-Guinean rimmed catheter was advanced to the right common iliac and right lower extremity angiography was performed. Next, the decision was made to perform intervention of the right SFA. There was diffuse disease of both the iliacs as well as some calcified lesion in the Common right femoral artery however majority of disease felt related to the CUSTOMER PROJECT MANAGER of the SFA and the popliteal artery. There was some difficulty advancing the 45 cm destination sheath around the right common iliac stent and therefore this required exchanging for a 0.035 Amplatz Super Stiff wire. With Amplatz wire, the destination sheath was able to be advanced to the right common femoral artery. Despite this, there was difficulty throughout the case with the sheath backing up into the aorta when advancing balloons and catheters. IV heparin was given. Attempts were made to cross lesion from above with a 0.035 stiff Glidewire and a glide catheter, a 0.018 Astato wire however was unsuccessful. Therefore decision made to obtain pedal access. Using ultrasound guidance, a 0.014 BMW wire was advanced into the right dorsalis pedis artery and a 0.014 coarsair microcatheter was advanced into the dorsalis pedis artery and catheter and wire were advanced to the popliteal/SFA lesion. Using a 0.014 Confianza wire the lesion was able to be crossed. Fortunately we were able to wire directly into the 4-Guinean 5 catheter and then a 0.014 BMW wire was externalized through the left femoral sheath. Next balloon angioplasty was performed with a 3.0 and 3.25 balloon. Intravascular ultrasound showed diffuse disease, heavy calcification with subintimal wire for approximately 2 cm at the CUSTOMER PROJECT MANAGER portion. Initial consideration of performing atherectomy however even exchanging the wire there is difficulty with the sheath being pushed up into the aorta. Therefore decision was made to perform angioplasty with possible stenting. Balloon angioplasty was performed with a 5.0 balloon. Next decision was made to perform stenting and overlapping Zilver 6.0 by 140 mm ROBERT x 2 were placed. The stent was postdilated with a 6.0 balloon. There was still some waist of the CUSTOMER PROJECT MANAGER portion and therefore is 7.0 balloon was used to post dilate this distal portion of the stent. Final angiograms were performed. Pre intervention there was 100% stenosis with no antegrade flow. Post intervention there was 10% stenosis and uninhibited antegrade flow. Left femoral artery was heavily calcified by ultrasound and not suitable for closure and therefore sheath was left in place to be pulled. The wire was removed from the right dorsalis pedis and pressure was held with hemostasis achieved. The patient tolerated the procedure well. Patient was transported back to the post catheterization holding area in stable condition. Conscious Sedation: Patient was monitored under the direct supervision of vision of myself for conscious sedation using Versed and fentanyl for a total duration of 205 minutes HEMODYNAMICS: Abdominal aorta: The abdominal aorta has [] calcifcation. Renal arteries []. There is no significant dissection or aneurysm. There is no significant stenosis. Right lower extremity: Right common iliac artery: There is an ostial right common iliac stent which is patent Right external iliac artery: There is no significant stenosis. Right internal iliac artery: There is no significant stenosis. Right common femoral artery: There is a right common femoral artery calcified 60-70% stenosis Right profunda: There is no significant stenosis. Right SFA: There is diffuse 50-60% stenosis of the proximal and mid right SFA. The mid to distal SFA has diffuse 80% stenosis. There is a short segment distal right SFA 100% stenosis with reconstitution at the P1 segment. Right popliteal artery: There is mild 30% stenosis. Right tibioperoneal trunk: There is no significant stenosis. Right anterior tibial artery: There is no significant stenosis. Right posterior tibial artery: There is no significant stenosis. Right peroneal artery: There is a proximal 95% stenosis Left lower extremity: Left common iliac artery: Not imaged Left external iliac artery: Not imaged Left internal iliac artery: Not imaged Left common femoral artery: There is diffuse 50-60% stenosis Left profunda: There is no significant stenosis. Left SFA: There is a proximal left SFA calcified 90% stenosis and otherwise diffuse 30-50% calcified stenosis Left popliteal artery: There is no significant stenosis. Images were not performed below the knee on the left. FINAL IMPRESSION: 1. Peripheral arterial disease as described above including 60-70% right common femoral artery, 80% and 100% right SFA, 95% right peroneal, more focal left SFA calcified 90% stenosis. 2. S/p WIRE MACHINE OPERATOR and Zilver ROBERT of right SFA with overlapping 6.0 x 140mm x 2, post dilated with a 7.0 mm balloon PLAN: 1. Aggressive risk factor modification per most recent ACC/AHA guidelines. 2. Consider intervention of the left SFA possibly from a antegrade approach if still having claudication of the left side.
[2023-05-13] MEDS ORDERED: ALBUTEROL HFA INHALER INHALATION PRN (13:56)
[2023-05-13] MEDS: ALBUTEROL NEBULIZED 2.5 MG/3 ML INHALATION PRN ×3 (14:20→23:29)
[2023-05-13] MEDS ORDERED: ALBUTEROL NEBULIZED 2.5 MG/3 ML INHALATION PRN (14:49)
[2023-05-13] MEDS ORDERED: SODIUM CHLORIDE 0.9% 1,000 ML IV SCH (15:00)
[2023-05-13] MEDS ORDERED: FUROSEMIDE 40 MG TAB PO SCH (15:00)
[2023-05-13 17:02] LABS: Glucose,Whole Blood 325 mg/dL (70-110)
[2023-05-13] MEDS: glipiZIDE 10 MG TAB PO SCH (17:35)
[2023-05-13 20:30] LABS: Glucose,Whole Blood 429 mg/dL (70-110)
[2023-05-13] MEDS: ISOSORBIDE MONONITRATE ER 60 MG TAB.ER.24H PO SCH (20:48)
[2023-05-13] MEDS: METOPROLOL TARTRATE 50 MG TAB PO SCH (20:48)
[2023-05-13] MEDS: RANOLAZINE 500 MG TAB.ER.12H PO SCH (20:49)
[2023-05-13] MEDS ORDERED: FENOFIBRATE 160 MG TAB PO SCH (21:00)
[2023-05-13] MEDS ORDERED: ASPIRIN 81 MG PO SCH (21:00)
[2023-05-13] MEDS ORDERED: DEXTROSE 50% SYRINGE 50 ML IVP PRN ×2 (21:12)
[2023-05-13] MEDS: INSULIN ASPART (NovoLOG) 100 UNIT/ML VIAL SQ SCH (21:34)
[2023-05-14 01:24] LABS: Glucose,Whole Blood 191 mg/dL (70-110)
[2023-05-14 01:42] VITALS: RESP 15
[2023-05-14 06:09] LABS: Glucose,Whole Blood 108 mg/dL (70-110)
[2023-05-14] MEDS: INSULIN ASPART (NovoLOG) 100 UNIT/ML VIAL SQ SCH (06:14)
[2023-05-14] MEDS: glipiZIDE 10 MG TAB PO SCH (06:41)
[2023-05-14 07:47] VITALS: BP 119/65; TEMP 98.1
[2023-05-14 08:59] LABS: BUN/Creat Ratio 20.06 Ratio (12.00-20.00); Blood Urea Nitrogen 34.1 mg/dL (9.0-27.0); Calcium 9.1 mg/dL (8.7-10.3); Carbon Dioxide 22.5 mmol/L (21.6-31.8); Chloride 104 mmol/L (96-109); Glucose 93 mg/dL (70-110); Potassium 3.9 mmol/L (3.5-5.5); Sodium 138 mmol/L (135-145)
[2023-05-14] MEDS ORDERED: lisinopriL 10 MG TAB PO SCH (09:00)
[2023-05-14] MEDS ORDERED: EZETIMIBE 10 MG TAB PO SCH (09:00)
[2023-05-14] MEDS ORDERED: CLOPIDOGREL 75 MG TAB PO SCH (09:00)
[2023-05-14] MEDS ORDERED: LINAGLIPTIN 5 MG TABLET PO SCH (09:00)
[2023-05-14] MEDS ORDERED: SPIRONOLACTONE 25 MG TAB PO SCH (09:00)
[2023-05-14] MEDS: ALBUTEROL NEBULIZED 2.5 MG/3 ML INHALATION PRN (09:04)
[2023-05-14 09:09] LABS: Basophils # (A) 0.02 X 10*3/uL (0.00-0.10); Basophils % (A) 0.2 %; Eosinophils # (A) 0.07 X 10*3/uL (0.04-0.35); Eosinophils % (A) 0.6 %; HCT 30.1 % (39.6-50.0); HGB 10.6 g/dL (13.0-17.0); Lymphocytes # (A) 1.72 X 10*3/uL (0.90-5.00); Lymphocytes % (A) 14.7 %; MCHC 35.2 g/dL (32.0-37.0); MCV 93.8 FL (80.0-97.0); Mean Platelet Volume 9.2 FL (9.5-12.2); Monocytes # (A) 1.15 X 10*3/uL (0.20-1.00); Monocytes % (A) 9.9 %; NRBC Per 100 WBC 0 X 10*3/uL (0.00-0.01); Neutrophils # (A) 8.67 X 10*3/uL (1.80-7.70); Neutrophils % (A) 74.3 %; Platelet Count 230 X 10*3/uL (140-440); RBC 3.21 X 10*6/uL (4.40-5.60); WBC 11.67 X 10*3/uL (4.50-10.00)
[2023-05-14 09:25] VITALS: PULSE 68
[2023-05-14] MEDS: ISOSORBIDE MONONITRATE ER 60 MG TAB.ER.24H PO SCH (09:40)
[2023-05-14] MEDS: RANOLAZINE 500 MG TAB.ER.12H PO SCH (09:40)
[2023-05-14] MEDS: METOPROLOL TARTRATE 50 MG TAB PO SCH (09:40)
--- NOTE | 2023-05-14 10:28 | P.DS ---
Providers Attending physician: Earl Yang DO Primary care physician: [facility] Course: Patient is a pleasant 67 year old male with history of PAD, CAD, CMP who presented for elective LE angiography and angioplasty. He underwent long procedure, balloon angioplasty of right SFA from a left femoral approach with additional dorsalis pedal access on 05/13. He had some mild increase in sugars related to steroids given for contrast allergy and had mild dyspnea which is at his baseline. No hematoma and RLE feels much better without claudication today. Patient is stable for discharge on aspirin and Plavix. Plan - Discharge Summary Discharge Rx Participant: No New Discharge Prescriptions: No Action Omeprazole [PriLOSEC] 20 mg PO DAILY Multivitamin [Men's Multi-Vitamin] 1 tab PO DAILY lisinopriL [Zestril] 10 mg PO DAILY gemfibroziL [Lopid] 600 mg PO BID Ubidecarenone [Co Q-10] 100 mg PO DAILY Isosorbide Mononitrate ER [Imdur] 60 mg PO BID Nitroglycerin Sl Tabs [Nitrostat] 0.4 mg SUBLINGUAL Q5M PRN tab PRN Reason: Chest Pain glipiZIDE XL [Glucotrol XL] 10 mg PO BID [place]illiner-3/Dha/Epa/Fish Oil [Fish Oil 1,000 mg Softgel] 1 each PO BID sitaGLIPtin [Januvia] 50 mg PO DAILY Clopidogrel [Plavix] 75 mg PO DAILY Metoprolol Tartrate [Lopressor] 100 mg PO BID Spironolactone [Aldactone] 25 mg PO DAILY Ranolazine [Ranolazine ER] 500 mg PO BID Ezetimibe [Zetia] 10 mg PO DAILY Aspirin [Adult Low Dose Aspirin EC] 81 mg PO HS Furosemide [Lasix] 40 mg PO SUMOWEFR Albuterol Nebulized [Ventolin Nebulized] 2.5 mg INHALATION QID PRN PRN Reason: Shortness Of Breath Albuterol Inhaler [Ventolin Hfa Inhaler] 1 - 2 puff INHALATION Q6H PRN PRN Reason: Shortness Of Breath Discharge Medication List Omeprazole [PriLOSEC] 20 mg PO DAILY 10/07/13 [History] Multivitamin [Men's Multi-Vitamin] 1 tab PO DAILY 03/01/15 [History] Ubidecarenone [Co Q-10] 100 mg PO DAILY 03/01/15 [History] gemfibroziL [Lopid] 600 mg PO BID 03/01/15 [History] lisinopriL [Zestril] 10 mg PO DAILY 03/01/15 [History] Isosorbide Mononitrate ER [Imdur] 60 mg PO BID 12/17/17 [History] Nitroglycerin Sl Tabs [Nitrostat] 0.4 mg SUBLINGUAL Q5M PRN tab 07/14/19 [Rx] glipiZIDE XL [Glucotrol XL] 10 mg PO BID 06/21/20 [History] Metoprolol Tartrate [Lopressor] 100 mg PO BID 12/24/20 [History] Ezetimibe [Zetia] 10 mg PO DAILY 04/16/22 [History] Ranolazine [Ranolazine ER] 500 mg PO BID 04/16/22 [History] Spironolactone [Aldactone] 25 mg PO DAILY 04/16/22 [History] Aspirin [Adult Low Dose Aspirin EC] 81 mg PO HS 06/19/22 [History] Albuterol Inhaler [Ventolin Hfa Inhaler] 1 - 2 puff INHALATION Q6H PRN 12/22/22 [History] Albuterol Nebulized [Ventolin Nebulized] 2.5 mg INHALATION QID PRN 12/22/22 [History] Furosemide [Lasix] 40 mg PO SUMOWEFR 12/22/22 [History] Dilliner-3/Dha/Epa/Fish Oil [Fish Oil 1,000 mg Softgel] 1 each PO BID 12/22/22 [History] Clopidogrel [Plavix] 75 mg PO DAILY 05/11/23 [History] sitaGLIPtin [Januvia] 50 mg PO DAILY 05/11/23 [History] Follow up Appointment(s)/Referral(s): Earl Yang DO [STAFF PHYSICIAN] - 05/22/23 2:00 pm
== END 2023-05-14 12:00 | disposition home or self-care (01) ==
LOC: CATHCVL 06:37 → 6NMEDSUR 11:51 → CATHCVL 05-14 12:00
PROVIDERS: ATTEND Internal Medicine
DX: T82.858A Stenosis of other vascular prosthetic devices, implants and grafts, initial encounter (principal); I73.9 Peripheral vascular disease, unspecified; I25.10 Atherosclerotic heart disease of native coronary artery without angina pectoris; Z79.02 Long term (current) use of antithrombotics/antiplatelets; Z79.82 Long term (current) use of aspirin; Z79.84 Long term (current) use of oral hypoglycemic drugs; Z91.041 Radiographic dye allergy status; Y83.8 Other surgical procedures as the cause of abnormal reaction of the patient, or of later complication, without mention of misadventure at the time of the procedure
CPT/HCPCS: 94640 ×3; 37226; 75716; 76937; 37252; 80048 ×2; 85025 ×2; C1769 ×10; C1725 ×4; C1894; C1887 ×2; C1753; C1874; C1751; J2250; J1200; J2930; J2001; J3010; J1644; Q9966

== ENCOUNTER 2023-06-10 17:40 | Emergency (ER) | payer MEDICARE ==
[2023-06-10 17:56] VITALS: BP 121/64; PULSE 73; RESP 18; TEMP 98.9
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
--- NOTE | 2023-06-10 19:45 | US ---
EXAMINATION TYPE: US venous doppler duplex LE RT DATE OF EXAM: 06/10/2023 7:10 PM COMPARISON: NONE CLINICAL INDICATION: Male, 67 years old with history of pain; Pt had stents put in right leg on . Pain since Thursday. Area of redness on ankle and swelling. On blood thinners SIDE PERFORMED: Right TECHNIQUE: The lower extremity deep venous system is examined utilizing real time linear array sonog caitlin with graded compression, doppler sonography and color-flow sonography. VESSELS IMAGED: Common Femoral Vein Deep Femoral Vein Greater Saphenous Vein * Femoral Vein Popliteal Vein Small Saphenous Vein * Proximal Calf Veins (* superficial vessels) Grayscale, color doppler, spectral doppler imaging performed of the deep veins of the lower extremiti es. There is normal flow, compressibility, vascular waveforms. Right Leg: No evidence for DVT. Edema noted in rt ankle IMPRESSION: 1. No evidence of deep venous thrombosis. 2. Soft tissue edema surrounding the right ankle.
[2023-06-10] MEDS ORDERED: CEPHALEXIN 500MG STARTER PACK 4 CAP BTL PO STA (23:07)
== END 2023-06-10 23:12 | disposition home or self-care (01) ==
LOC: EC 17:40
DX: M25.571 Pain in right ankle and joints of right foot (principal); I25.10 Atherosclerotic heart disease of native coronary artery without angina pectoris; E11.9 Type 2 diabetes mellitus without complications; K21.9 Gastro-esophageal reflux disease without esophagitis; I50.9 Heart failure, unspecified; I25.2 Old myocardial infarction; Z86.73 Personal history of transient ischemic attack (TIA), and cerebral infarction without residual deficits; Z87.891 Personal history of nicotine dependence; Z88.2 Allergy status to sulfonamides; Z88.6 Allergy status to analgesic agent; Z88.8 Allergy status to other drugs, medicaments and biological substances; Z79.82 Long term (current) use of aspirin; Z79.899 Other long term (current) drug therapy
CPT/HCPCS: 99283

== ENCOUNTER → 2024-03-21 | Outpatient (CLI) | payer MEDICARE ==
--- NOTE | 2024-03-21 09:47 | US ---
EXAMINATION TYPE: US arterial LE single level DATE OF EXAM: 03/21/2024 9:28 AM CLINICAL INDICATION: Male, 68 years old with history of I73.9 PERIPHERAL VASCULAR DISEASE, UNSPECIFIE D; PAD History of: Smoker: Previous Hypertension: Yes Diabetic: Yes Hyperlipidemia: Yes TIA/CVA: No Previous Vascular Surgery: Cardiac stents, right leg stents to knee level. Patient unsure of stents in left leg- pressures deferred above the ankle due to unknown surgical history. AK: Yes 2000 Vascular Ulcers: No Claudication: Yes, Left Gangrene: No Doppler Waveforms: Right: Multiphasic Left: Multiphasic Right Brachial Pressure: 147 Left Brachial Pressure: 150 Ankle-Brachial Indices: Right: 0.95 Left: 0.53 (Vessel hardening > 1.4; Normal 0.9 - 1.4, Moderate 0.7 - 0.9, Severe 0.5-0.7) Toe Brachial Indices: Right: 0.87 Left: Unable to obtain, limited due to movement IMPRESSION: 1. Normal right SUKHDEV. 2. Abnormal left SUKHDEV suggestive of severe atherosclerotic disease. [facility], , 03/21/2024 9:45 AM
== END ==
LOC: RADUSWWP 08:47
PROVIDERS: ATTEND Internal Medicine
CPT/HCPCS: 93922

== ENCOUNTER 2024-09-28 10:56 | Day surgery (SDC) | payer MEDICARE ==
[2024-09-26 13:54] VITALS: BMI 28.2
[~2024-09-28 10:56] MED LIST changes: +ALPRAZolam 0.5 MG TAB PO PRN; -ASPIRIN 325 MG TAB PO PRN; +SODIUM CHLORIDE 0.9% 1,000 ML IV SCH; -SODIUM CHLORIDE 0.9% 1,000 ML in EMPTY BAG 1 BAG IV ONE; +ZOLPIDEM 5 MG TAB PO PRN
[2024-09-28] MEDS: IV FLUID CONTINUATION 1,000 ML IV ONE (11:16)
[2024-09-28] MEDS: EMPTY BAG 1 BAG with SODIUM CHLORIDE 0.9% 1,000 ML IV SCH (11:28)
[2024-09-28 11:30] LABS: Glucose,Whole Blood 146 mg/dL (70-110)
[2024-09-28] MEDS: MIDAZOLAM 2 MG/2 ML VIAL IVP ONE (12:12)
[2024-09-28] MEDS: fentaNYL (PF) 50 MCG/ML 2 ML AMP IVP ONE (12:12)
[2024-09-28] MEDS: LIDOCAINE 1% INJ 10MG/ML (20 ML MDV) SQ ONE (12:13)
[2024-09-28] MEDS: IOPAMIDOL-370 100ML BTL INJ ONE (12:29)
[2024-09-28] MEDS: HEPARIN SODIUM,PORCINE 10,000 UNIT in SODIUM CHLORIDE 0.9% 1,000 ML IRRIGATION PRN (12:30)
[2024-09-28] MEDS: HEPARIN SODIUM,PORCINE (1 ML) 2,500 UNIT in SODIUM CHLORIDE 0.9% 250 ML IRRIGATION PRN (12:30)
--- NOTE | 2024-09-28 13:36 | P.PCN ---
Description of Procedure: PROCEDURES PERFORMED: Selective left lower extremity runoff INDICATION: CLI CONSENT:I have discussed the risks, benefits and alternative therapies for the above-mentioned procedure and for both sedation/analgesia as well as necessary blood product administration, if indicated, as they pertain to this patient. The patient has indicated understanding and acceptance of the risks and procedures discussed. PROCEDURE: After the risks, benefits and alternatives of the above mentioned procedure explained in detail with the patient, informed consent was obtained. Patient was taken to the catheterization lab and prepped and draped in usual fashion. 1% lidocaine was used to anesthetize the right femoral area. A 5- Mosotho sheath was placed in the right femoral artery using modified Seldinger technique. A 5-Mosotho rim catheter was inserted to the left common iliac and DSA imaging was obtained. To help preserve contrast, a multipurpose catheter was inserted into the left external iliac artery and selective left lower extremity angiograms were performed. Given his contrast threshold no intervention was recommended. Patient was noted to have extensive calcification on his ultrasound at the level of his right femoral arteriotomy and therefore the sheath was pulled and manual pressure was held. The patient tolerated the procedure well. Patient was transported back to the post catheterization holding area in stable condition. Conscious Sedation: Patient was monitored under the direct supervision of vision of myself for conscious sedation using Versed and fentanyl for a total duration of 18 minutes HEMODYNAMICS: Aorta: 138/72 Left lower extremity: Left common iliac artery: There is 30 to 40% stenosis. Left external iliac artery: There is no significant stenosis. Left internal iliac artery: There is 90% proximal stenosis. Left common femoral artery: There is some calcification with what appears to be 50% stenosis. Left profunda: There is no significant stenosis. Left SFA: There is a heavily calcified proximal SFA 95% stenosis followed by a subtotal occlusion 100% SPECIAL SERVICES SUPERVISOR of the mid to distal SFA. Left popliteal artery: There is no significant stenosis. Left tibioperoneal trunk: There is no significant stenosis. Left anterior tibial artery: There is no significant stenosis. Left posterior tibial artery: There is no significant stenosis. Left peroneal artery: There is no significant stenosis. FINAL IMPRESSION: 1. Peripheral arterial disease as described above including 95% proximal left SFA and 100% SPECIAL SERVICES SUPERVISOR of the mid to distal left SFA. PLAN: 1. Aggressive risk factor modification per most recent ACC/AHA guidelines. 2. Given contrast threshold and risk of ROHAN, recommend staged intervention. Repeat creatinine and stage intervention in the next 1 to 2 weeks.
[2024-09-28 13:45] VITALS: TEMP 97.7
[2024-09-28] MEDS ORDERED: NON FORMULARY DRUG (Albuterol Inhaler 90 MCG Puff) INHALATION PRN (13:46)
--- NOTE | 2024-09-28 14:16 | IR ---
Fluoroscopy INDICATION: Claudication FINDINGS: Fluoroscopy time: 3.5 minutes Total dose area product (DAP) in uGy*m?, mGy*cm? (or similar): 14.9 Images obtained: 5 sequences. Images document aortic runoff. There is an obstruction of the left proximal superficial femoral arter y. Collateral vessels reconstitute the distal superficial femoral artery mild plaquing is present wit hin left iliac and opacified superficial femoral artery on the left IMPRESSION: 1. Documentation of fluoroscopy. [facility], Workstation: [facility], 09/28/2024 2:14 PM
[2024-09-28] MEDS: PANTOPRAZOLE 40 MG TABLET PO SCH (14:49)
[2024-09-28] MEDS: FUROSEMIDE 40 MG TAB PO SCH (14:49)
[2024-09-28] MEDS: METOPROLOL TARTRATE 50 MG TAB PO SCH (14:49)
[2024-09-28] MEDS: lisinopriL 10 MG TAB PO SCH (14:49)
[2024-09-28] MEDS: EZETIMIBE 10 MG TAB PO SCH (14:49)
[2024-09-28] MEDS: RANOLAZINE 500 MG TAB.ER.12H PO SCH (14:49)
[2024-09-28] MEDS: DAPAGLIFLOZIN PROPANEDIOL 5 MG TABLET PO SCH (14:49)
[2024-09-28] MEDS: FENOFIBRATE 160 MG TAB PO SCH (14:49)
[2024-09-28] MEDS: allopurinoL 100 MG TAB PO SCH (14:49)
[2024-09-28] MEDS: SPIRONOLACTONE 25 MG TAB PO SCH (14:49)
[2024-09-28] MEDS: glipiZIDE 5 MG TAB PO SCH (14:49)
[2024-09-28] MEDS: ISOSORBIDE MONONITRATE ER 60 MG TAB.ER.24H PO SCH (14:49)
[2024-09-28] MEDS: GABAPENTIN 300 MG CAP PO SCH (15:17)
[2024-09-28] MEDS: ALBUTEROL NEBULIZED 2.5 MG/3 ML INHALATION PRN (15:27)
[2024-09-28 16:48] VITALS: BP 124/67; PULSE 64; RESP 18
[2024-09-29] MEDS ORDERED: ASPIRIN 81 MG PO SCH (09:00)
== END 2024-09-28 20:14 | disposition home or self-care (01) ==
LOC: CATHCVL 10:56 → 6NMEDSUR 12:31 → CATHCVL 20:14
PROVIDERS: ATTEND Internal Medicine
DX: I25.10 Atherosclerotic heart disease of native coronary artery without angina pectoris (principal); I73.9 Peripheral vascular disease, unspecified; I65.23 Occlusion and stenosis of bilateral carotid arteries; I25.5 Ischemic cardiomyopathy; I11.0 Hypertensive heart disease with heart failure; I50.22 Chronic systolic (congestive) heart failure; E78.00 Pure hypercholesterolemia, unspecified; E11.9 Type 2 diabetes mellitus without complications; Z72.0 Tobacco use; Z88.8 Allergy status to other drugs, medicaments and biological substances; Z79.51 Long term (current) use of inhaled steroids; Z79.82 Long term (current) use of aspirin; Z79.899 Other long term (current) drug therapy
CPT/HCPCS: 36246; 75710; 99152; C1894; C1769 ×2; J2250; J1644 ×2; J2003; J3010; Q9967

== ENCOUNTER 2024-10-17 11:49 | Day surgery (SDC) | payer MEDICARE ==
[2024-10-13 12:56] VITALS: BMI 28.8
[~2024-10-17 11:49] MED LIST changes: -ALPRAZolam 0.25 MG TAB PO PRN; +HEPARIN SODIUM,PORCINE (1 ML) 2,500 UNIT in SODIUM CHLORIDE 0.9% 250 ML IRRIGATION PRN; +HEPARIN SODIUM,PORCINE 10,000 UNIT in SODIUM CHLORIDE 0.9% 1,000 ML IRRIGATION PRN; -SODIUM CHLORIDE 0.9% 1,000 ML IV SCH
[2024-10-17] MEDS: IV FLUID CONTINUATION 1,000 ML IV ONE (12:28)
[2024-10-17] MEDS: EMPTY BAG 1 BAG with SODIUM CHLORIDE 0.9% 1,000 ML IV SCH (12:28)
[2024-10-17 12:49] LABS: Glucose,Whole Blood 143 mg/dL (70-110)
[2024-10-17 13:05] LABS: Basophils # (A) 0.03 10*3/uL (0.00-0.10); Basophils % (A) 0.4 %; Eosinophils # (A) 0.39 10*3/uL (0.04-0.35); Eosinophils % (A) 5.1 %; HCT 36.1 % (39.6-50.0); HGB 12.8 g/dL (13.0-17.0); Lymphocytes # (A) 1.64 10*3/uL (0.90-5.00); Lymphocytes % (A) 21.4 %; MCHC 35.5 g/dL (32.0-37.0); MCV 98.6 fL (80.0-97.0); Mean Platelet Volume 9.1 fL (9.5-12.2); Monocytes # (A) 0.77 10*3/uL (0.20-1.00); Monocytes % (A) 10.1 %; Neutrophils % (A) 62.6 %; Platelet Count 198 10*3/uL (140-440); RBC 3.66 10*6/uL (4.40-5.60); RDW 14.5 % (11.5-14.5); WBC 7.66 10*3/uL (4.50-10.00)
[2024-10-17 13:14] LABS: African American GFR (CKD) 32 (>60 ml/min/1.73 sqM); Anion Gap 11 mmol/L; Blood Urea Nitrogen 51 mg/dL (9-20); Calcium 9.7 mg/dL (8.4-10.2); Carbon Dioxide 25 mmol/L (22-30); Chloride 106 mmol/L (98-107); Glucose 143 mg/dL (74-99); Non-African American GFR(CKD) 28 (>60 ml/min/1.73 sqM); Potassium 4.6 mmol/L (3.5-5.1); Sodium 142 mmol/L (137-145)
[2024-10-17] MEDS: MIDAZOLAM 2 MG/2 ML VIAL IVP ONE ×2 (13:38→15:20)
[2024-10-17] MEDS: fentaNYL (PF) 50 MCG/ML 2 ML AMP IVP ONE ×2 (13:40→15:21)
[2024-10-17] MEDS: LIDOCAINE 1% INJ 10MG/ML (20 ML MDV) SQ ONE (13:49)
[2024-10-17] MEDS: VERAPAMIL SYRINGE (5 MG/10 ML) INTRAARTER ONE (14:59)
[2024-10-17] MEDS: SODIUM CHLORIDE 0.9% 500 ML 500 ML with niCARdipine 6.25 MG, NITROGLYCERIN-D5W PMX 0.05... IV ONE (15:13)
[2024-10-17] MEDS: IOPAMIDOL-370 100ML BTL INJ ONE (15:42)
[2024-10-17] MEDS ORDERED: NALOXONE 0.4 MG/ML 1 ML VIAL IVP PRN (16:11)
--- NOTE | 2024-10-17 16:11 | P.PCN ---
Description of Procedure: PROCEDURES PERFORMED: Selective left lower extremity runoff, attempted wiring of METAL BED ASSEMBLER left SFA INDICATION: CLI CONSENT:I have discussed the risks, benefits and alternative therapies for the above-mentioned procedure and for both sedation/analgesia as well as necessary blood product administration, if indicated, as they pertain to this patient. The patient has indicated understanding and acceptance of the risks and procedures discussed. PROCEDURE: After the risks, benefits and alternatives of the above mentioned procedure explained in detail with the patient, informed consent was obtained. Patient was taken to the catheterization lab and prepped and draped in usual fashion. 1% lidocaine was used to anesthetize the right femoral area. A 6- Arabic sheath was placed in the right femoral artery using modified Seldinger technique. A 5-Arabic rim catheter was inserted to the left common iliac and a 0.035 stiff glide was advanced into the left SFA. A 6Fr destination sheath was advanced however difficulty advancing all the way to the left external illiac requiring balloon of left common illiac to help anchor and facilitate advancing sheath. DSA imaging was obtained. Using a angled glide sheath and a 0.035 stiff glide wire attempts were made at crossing the METAL BED ASSEMBLER. This was unsuccessful with heavily calcified plaque and true lumen crossing was felt less likely. Therefore dissection was extended and reentry was attempted. Multiple attempts were made at reentry with a 0.014 and 0.018 Astato wire and 0.035 stiff glide. These were unsuccessful at obtaining true lumen. Additionally attempted a 5 Arabic FR4 catheter which was unsuccessful at being advanced and pushing the guide sheath back into the aorta. Therefore decision made to perform pedal axis. A 6 Arabic sheath was inserted into the left dorsalis pedis artery. A 0.035 stiff Glidewire and angled glide sheath were advanced past the METAL BED ASSEMBLER however again in a dissection flap and again attempts were made at the entering into the proximal SFA. Multiple attempts were unsuccessful. Therefore procedure was aborted. Patient was noted to have extensive calcification on his ultrasound at the level of his right femoral arteriotomy and therefore the sheath was pulled and manual pressure was held. The patient tolerated the procedure well. Patient was transported back to the post catheterization holding area in stable condition. Conscious Sedation: Patient was monitored under the direct supervision of vision of myself for conscious sedation using Versed and fentanyl for a total duration of 118 minutes HEMODYNAMICS: Aorta: 132/79 Left lower extremity: Left common iliac artery: There is 30 to 40% stenosis. Left external iliac artery: There is no significant stenosis. Left internal iliac artery: There is 90% proximal stenosis. Left common femoral artery: There is some calcification with what appears to be 50% stenosis. Left profunda: There is no significant stenosis. Left SFA: There is a heavily calcified proximal SFA 95% stenosis followed by a subtotal occlusion 100% METAL BED ASSEMBLER of the mid to distal SFA. Left popliteal artery: There is no significant stenosis. Left tibioperoneal trunk: There is no significant stenosis. Left anterior tibial artery: There is no significant stenosis. Left posterior tibial artery: There is no significant stenosis. Left peroneal artery: There is no significant stenosis. FINAL IMPRESSION: 1. Peripheral arterial disease as described above including 95% proximal left SFA and 100% METAL BED ASSEMBLER of the mid to distal left SFA. 2. Unsuccessful crossing of left SFA METAL BED ASSEMBLER from antegrade and retrograde approach PLAN: 1. Aggressive risk factor modification per most recent ACC/AHA guidelines. 2. Consider medical therapy, repeat attempted peripheral intervention in 3 to 4 weeks once dissection is healed versus surgical evaluation/bypass.
[2024-10-17] MEDS ORDERED: ALBUTEROL NEBULIZED 2.5 MG/3 ML INHALATION PRN (16:12)
[2024-10-17] MEDS: ACETAMINOPHEN TAB 500 MG TAB PO PRN (16:40)
--- NOTE | 2024-10-17 16:41 | IR ---
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 [facility], Workstation: [email or web address], 10/17/2024 4:39 PM
[2024-10-17 18:08] LABS: Glucose,Whole Blood 153 mg/dL (70-110)
[2024-10-17] MEDS: ASPIRIN 81 MG PO SCH (19:59)
[2024-10-17] MEDS: GABAPENTIN 300 MG CAP PO SCH (20:08)
[2024-10-17] MEDS: RANOLAZINE 500 MG TAB.ER.12H PO SCH (20:08)
[2024-10-17] MEDS: ISOSORBIDE MONONITRATE ER 60 MG TAB.ER.24H PO SCH (20:08)
[2024-10-17] MEDS: METOPROLOL TARTRATE 50 MG TAB PO SCH (20:08)
[2024-10-17] MEDS: SODIUM CHLORIDE 0.9% 1,000 ML in EMPTY BAG 1 BAG IV SCH (20:10)
[2024-10-17 20:15] LABS: Glucose,Whole Blood 148 mg/dL (70-110)
[2024-10-17] MEDS: EMPTY BAG 1 BAG with SODIUM CHLORIDE 0.9% 1,000 ML IV ONE (20:40)
[2024-10-17] MEDS: ALBUTEROL NEBULIZED 2.5 MG/3 ML INHALATION SCH (21:09)
[2024-10-17] MEDS: SODIUM CHLORIDE 0.9% 1,000 ML IV SCH (21:59)
[2024-10-18] MEDS: ALPRAZolam 0.25 MG TAB PO PRN (04:10)
[2024-10-18 04:19] VITALS: TEMP 98
[2024-10-18 06:11] LABS: Glucose,Whole Blood 148 mg/dL (70-110)
[2024-10-18 07:58] VITALS: BP 123/61; RESP 18
[2024-10-18] MEDS: DAPAGLIFLOZIN PROPANEDIOL 5 MG TABLET PO SCH (08:05)
[2024-10-18] MEDS: CLOPIDOGREL 75 MG TAB PO SCH (08:05)
[2024-10-18] MEDS: lisinopriL 10 MG TAB PO SCH (08:05)
[2024-10-18] MEDS: FENOFIBRATE 160 MG TAB PO SCH (08:05)
[2024-10-18] MEDS: glipiZIDE 5 MG TAB PO SCH (08:05)
[2024-10-18] MEDS: FUROSEMIDE 40 MG TAB PO SCH (08:05)
[2024-10-18] MEDS: EZETIMIBE 10 MG TAB PO SCH (08:05)
[2024-10-18] MEDS: allopurinoL 100 MG TAB PO SCH (08:05)
[2024-10-18] MEDS: SPIRONOLACTONE 25 MG TAB PO SCH (08:05)
[2024-10-18] MEDS: MULTIVITAMINS, THERA 1 EACH TAB PO SCH (08:06)
[2024-10-18 09:05] VITALS: PULSE 80
--- NOTE | 2024-10-18 13:37 | P.DS ---
Providers Attending physician: Earl Yang DO Primary care physician: [facility] Course: Patient is a pleasant 69-year-old male who underwent elective attempted peripheral intervention of the left SFA HEAD OPERATOR on 10/17/2024 from a right femoral approach. Unfortunately unable to cross the lesion from antegrade as well as retrograde from pedal access. Patient was monitored overnight with no significant vascular issues, no significant hematoma of the right femoral site. Patient having continued occasional heel pain on his left heel however has been stable from before. Patient will be discharged home with possible repeat intervention versus surgical evaluation. Plan - Discharge Summary Discharge Rx Participant: No New Discharge Prescriptions: No Action Omeprazole [PriLOSEC] 20 mg PO DAILY Multivitamin [Men's Multi-Vitamin] 1 tab PO DAILY lisinopriL [Zestril] 10 mg PO DAILY gemfibroziL [Lopid] 600 mg PO BID Isosorbide Mononitrate ER [Imdur] 60 mg PO BID glipiZIDE XL [Glucotrol XL] 10 mg PO DAILY Jackpot-3/Dha/Epa/Fish Oil [Fish Oil 1,000 mg Softgel] 1 each PO BID allopurinoL 100 mg PO DAILY Gabapentin 300 mg PO TID Clopidogrel [Plavix] 75 mg PO DAILY Metoprolol Tartrate [Lopressor] 100 mg PO BID Spironolactone [Aldactone] 25 mg PO DAILY Ranolazine [Ranolazine ER] 500 mg PO BID Aspirin [Adult Low Dose Aspirin EC] 81 mg PO HS Furosemide [Lasix] 40 mg PO DAILY Albuterol Nebulized [Ventolin Nebulized] 2.5 mg INHALATION QID PRN PRN Reason: Shortness Of Breath Albuterol Inhaler [Ventolin Hfa Inhaler] 1 - 2 puff INHALATION Q6H PRN PRN Reason: Shortness Of Breath Ezetimibe [Zetia] 10 mg PO DAILY Empagliflozin [Jardiance] 10 mg PO DAILY Discharge Medication List Omeprazole [PriLOSEC] 20 mg PO DAILY 10/07/13 [History] Multivitamin [Men's Multi-Vitamin] 1 tab PO DAILY 03/01/15 [History] gemfibroziL [Lopid] 600 mg PO BID 03/01/15 [History] lisinopriL [Zestril] 10 mg PO DAILY 09/24/15 [History] Isosorbide Mononitrate ER [Imdur] 60 mg PO BID 12/17/17 [History] glipiZIDE XL [Glucotrol XL] 10 mg PO DAILY 06/21/20 [History] Metoprolol Tartrate [Lopressor] 100 mg PO BID 12/24/20 [History] Ranolazine [Ranolazine ER] 500 mg PO BID 04/16/22 [History] Spironolactone [Aldactone] 25 mg PO DAILY 04/16/22 [History] Aspirin [Adult Low Dose Aspirin EC] 81 mg PO HS 06/19/22 [History] Albuterol Inhaler [Ventolin Hfa Inhaler] 1 - 2 puff INHALATION Q6H PRN 12/22/22 [History] Albuterol Nebulized [Ventolin Nebulized] 2.5 mg INHALATION QID PRN 12/22/22 [History] Furosemide [Lasix] 40 mg PO DAILY 12/22/22 [History] Jackpot-3/Dha/Epa/Fish Oil [Fish Oil 1,000 mg Softgel] 1 each PO BID 12/22/22 [History] Empagliflozin [Jardiance] 10 mg PO DAILY 09/26/24 [History] Ezetimibe [Zetia] 10 mg PO DAILY 09/26/24 [History] Gabapentin 300 mg PO TID 09/26/24 [History] allopurinoL 100 mg PO DAILY 09/26/24 [History] Clopidogrel [Plavix] 75 mg PO DAILY 10/13/24 [History] Follow up Appointment(s)/Referral(s): Earl Yang DO [STAFF PHYSICIAN] - 10/24/24 2:30 pm Patient Instructions/Handouts: *Surgery [facility] - After Heart Catheterization - Log Yard Manager Instructions Discharge Disposition: HOME SELF-CARE
== END 2024-10-18 10:13 | disposition home or self-care (01) ==
LOC: CATHCVL 11:49 → 3SCARD 15:40 → CATHCVL 10-18 10:13
PROVIDERS: ATTEND Internal Medicine
DX: I73.9 Peripheral vascular disease, unspecified (principal); I25.810 Atherosclerosis of coronary artery bypass graft(s) without angina pectoris; Z95.1 Presence of aortocoronary bypass graft; I10 Essential (primary) hypertension; Z79.82 Long term (current) use of aspirin; Z79.02 Long term (current) use of antithrombotics/antiplatelets
CPT/HCPCS: 94640 ×3; 37220; 75710; 80048; 85025; C1894 ×2; C1725; C1769 ×3; J2250; J2003; J3010; J1644 ×2; Q9967; J2305